=== PATIENT | female | born 1975 | race Caucasian/White ===

== ENCOUNTER 2024-01-07 09:09 | Inpatient (IN) ==
--- NOTE | 2023-12-15 12:50 | PAT Medication Instructions ---
Medication Instructions Date of Service December 15, 2023 Home Medications albuterol sulfate 90 mcg/actuation aerosol inhaler 1 puff inhalation QID PRN Shortness Of Breath buspirone 15 mg tablet 15 mg PO TID PRN Anxiety cholecalciferol (vitamin D3) 125 mcg (5,000 unit) tablet (Vitamin D3) 250 mcg PO QAM eletriptan 40 mg tablet 40 mg PO UD PRN migraines lisinopril 20 mg-hydrochlorothiazide 12.5 mg tablet 1 tab PO QAM omeprazole 20 mg capsule,delayed release 40 mg PO QAM oxycodone-acetaminophen 7.5 mg-325 mg tablet 1 tab PO TID paroxetine HCl 10 mg tablet 10 mg PO QAM hot flashes topiramate 50 mg tablet 50 mg PO BID MEDICATION INSTRUCTIONS: Continue as directed albuterol sulfate 90 mcg/actuation aerosol inhaler 1 puff inhalation QID PRN Shortness Of Breath (use if needed; BRING TO HOSPITAL) DO NOT take the morning of surgery lisinopril 20 mg-hydrochlorothiazide 12.5 mg tablet 1 tab PO QAM cholecalciferol (vitamin D3) 125 mcg (5,000 unit) tablet (Vitamin D3) 250 mcg PO QAM Take morning of surgery With a small sip of water, OTHERWISE NOTHING TO EAT OR DRINK AFTER MIDNIGHT: oxycodone-acetaminophen 7.5 mg-325 mg tablet 1 tab PO TID buspirone 15 mg tablet 15 mg PO TID PRN Anxiety topiramate 50 mg tablet 50 mg PO BID eletriptan 40 mg tablet 40 mg PO UD PRN migraines omeprazole 20 mg capsule,delayed release 40 mg PO QAM paroxetine HCl 10 mg tablet 10 mg PO QAM hot flashes Take evening before surgery oxycodone-acetaminophen 7.5 mg-325 mg tablet 1 tab PO TID buspirone 15 mg tablet 15 mg PO TID PRN Anxiety topiramate 50 mg tablet 50 mg PO BID eletriptan 40 mg tablet 40 mg PO UD PRN migraines Other Notes If you have any questions please call us at [phone] or [phone] or [phone] or [phone]
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
[2024-01-07] MEDS ORDERED: fentaNYL citrate PF 100 MCG/2 ML VIAL ONE (10:04)
[2024-01-07] MEDS ORDERED: MIDAZOLAM HCL 1 MG/ML 2ML VIAL ONE (10:04)
[2024-01-07] MEDS ORDERED: ATROPINE SULFATE 0.1 MG/ML 10ML SYR IV PRN (10:09)
[2024-01-07] MEDS ORDERED: PROMETHAZINE HCL 6.25 MG in SODIUM CHLORIDE 0.9% 50 ML IV PRN (10:09)
[2024-01-07] MEDS ORDERED: ONDANSETRON INJ 2 MG/ML 2 ML VIAL IV PRN ×2 (10:09→16:17)
[2024-01-07] MEDS: LR 15ML/HR IV SCH (10:15)
[2024-01-07] MEDS: LR 60ML/HR IV SCH (10:16)
[2024-01-07] MEDS: ACETAMINOPHEN 500 MG TAB PO SCH (10:16)
[2024-01-07] MEDS: GABAPENTIN 900 MG DOSE PO SCH (10:17)
[2024-01-07] MEDS: CeleBREX 200 MG CAP PO SCH (10:17)
--- NOTE | 2024-01-07 10:46 | History & Physical Bridge Note ---
Date of Service January 07, 2024 History & Physical Bridge Note I have examined the patient, reviewed the History & Physical and in the interval since the performance of the History & Physical I have noted the following changes of clinical significance: no changes noted
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
[2024-01-07] MEDS ORDERED: ROCURONIUM BROMIDE 10 MG/ML 5 ML VIAL IV ONE (11:24)
[2024-01-07] MEDS ORDERED: PROPOFOL IV EMULSION 10 MG/ML 20 ML VIAL IV ONE (11:24)
[2024-01-07] MEDS ORDERED: ONDANSETRON INJ 2 MG/ML 2 ML VIAL ONE (11:24)
[2024-01-07] MEDS ORDERED: diphenhydrAMINE 50 MG/ML VIAL ONE (11:24)
[2024-01-07] MEDS ORDERED: DEXAMETHASONE SOD INJ 4 MG/ML VIAL ONE (11:24)
[2024-01-07] MEDS ORDERED: GLYCOPYRROLATE 0.2 MG/ML VIAL ONE (11:24)
[2024-01-07] MEDS ORDERED: LIDOCAINE 2% 2 ML VIAL/AMP(20MG/ML) INFIL ONE (11:24)
[2024-01-07] MEDS: ceFAZolin 2000MG 2,000 MG/15 ML SYR IV SCH ×2 (11:28→20:28)
[2024-01-07] MEDS: BUPIVACAINE/EPINEPHRINE 0.25% 1:200,000 30 ML VIAL ONE (11:51)
[2024-01-07] MEDS: ceFAZolin 330 MG/ML 1 GM VIAL ONE (11:51)
[2024-01-07] MEDS ORDERED: PHENYLEPHRINE HCL 10 MG/ML VIAL ONE (12:06)
[2024-01-07] MEDS ORDERED: SUGAMMADEX SODIUM 200 MG/2 ML VIAL IV ONE (12:34)
[2024-01-07] MEDS ORDERED: ePHEDrine sulfate 50 MG/5 ML SYR ONE (12:58)
[2024-01-07] MEDS ORDERED: ePHEDrine sulfate 50 MG/ML AMP ONE (12:58)
[2024-01-07] MEDS: FLOSEAL HEMOSTATIC MATRIX 10ML TOP ONE (12:59)
--- NOTE | 2024-01-07 13:12 | Operative Report ---
Post Operative Report Pre & Post Diagnosis Operation Date: 01/07/24 10:55 Pre-Op Diagnosis: Neurogenic claudication due to lumbar spinal stenosis Lumbar spondylolisthesis L4-L5 Obesity Post-Op Diagnosis: Same I identified the patient and participated in the time-out.: Yes Procedure Operation Date: 01/07/24 10:55 Actual Procedures #1 removal of posterior instrumentation L5-S1. #2 exploration of fusion L5-S1. #3 lumbar decompression with bilateral medial facetectomies and foraminotomies L3-L4 L4-5. #4 posterior spinal fusion L4-5 and #5 placed posterior instrumentation L4-S1. #6 interbody fusion L4-L5. #7 placement of Spira 11 x 26 mm x 2 L for L5 pain #8 placement locally harvested morselized autograft infuse collagen sponge, with Koros in the posterior lateral gutters and Morpheus bone graft interbody space Surgeon Delfin Castillo DO Statistical Methods Teacher Tomas Ram Estimated Blood Loss 100 Findings See Below The patient is 5 foot 1 weighing over 77 kg with a BMI in excess of 31. Patient 's body did contribute to significant technical difficulty with positioning exposure and the procedure itself at least 50% increased operative time. Specimens None Indications This is a 48-year-old female presents problems diagnosis after failing since course of nonoperative care is here for surgical invention. Description of Procedure Patient was met with identified informed consent obtained. Patient was then taken to the operative suite underwent ablation placed in a prone position on the Bar table on top of the Que frame. All bony prominences well-padded eyes inspected to ensure no external pressure placed upon them. This point the lumbar spine was prepped and draped in normal sterile fashion. Sharp dissection with the assistance of Bovie cards from down to and exposing the lamina transverse processes of L4 and the instrumentation at L5-S1 bilaterally. In order to perform an instrumented fusion to stabilize her gross instability and spondylolisthesis at L4-5 it would require placement of new instrumentation at L4 and L5 subsequently requiring removal of the instrumentation at L5-S1. Hardware was subsequently removed at L5-S1 and the fusion mass explored noted to be mature and intact. Patient does have evidence of soft bone and I elected to place pedicle screws back into the S1 pedicles to provide extra points of fixation. I then performed a complete laminectomy of L4 including bilateral medial facetectomies and foraminotomies addressing severe spinal stenosis. Partial laminectomy of L3 was also performed including bilateral medial facetectomies addressing subarticular stenosis. Pedicle screws then placed in L4 and L5 bilaterally with assistance of fluoroscopy in the process ariel contoured and placed. By way of transforaminal approach on the right at discectomy of L4-5 was performed endplates guarded to subcortical bleeding bone and 11 x 26 mm spiral cage filled with Morpheus bone graft tapped in position. Then proceeded to the left transforaminal region and completed the discectomy at L4-L5 endplates guided to subcortical bleeding bone and a second 11 x 26 mm Spira cage filled with Morpheus bone graft tapped in position. The rods were then compressed locked in final position bilaterally. The transverse processes of L4-5 burred to subcortical bleeding bone. Infuse collagen sponge, with Koros and local autograft placed in the posterior gutters. 15 round JAYLENE drain inserted. The incision was then closed with 1 Vicryl to fascia 2-0 Vicryl subcutaneously and 4 Monocryl for final skin closure. Steri-Strips sterile dressing placed. Patient waken taken to PACU stable condition. Please note spinal cord monitoring was utilized at the procedure no changes noted. Marline Ram was present at the entire surgeon while the patient positioning complex portion of the surgery and final skin closure. I attest to the content of the Intraoperative Record and any orders documented therein. Any exceptions are noted below.
--- NOTE | 2024-01-07 13:21 | Fluoroscopy Report ---
FL lumbar spine 2-3V CLINICAL HISTORY: L4-L5 DECOMPRESSION TECHNIQUE: 2 views were obtained with the C-arm in the OR with the above procedure. Total fluoroscopy time was 14.2 seconds. Radiation dose was 13.34 mGy. Comparison: Comparison is made to lumbar spine radiograph 08/28/2013 FINDINGS/IMPRESSION: Intraoperative images were obtained of L4-L5 decompression. Please correlate with intraoperative fluoroscopy and operative report. ACT 112: Negative or not required by law. Electronically signed by: Tc Cobian M.D. 01/07/2024 1:20 PM
[2024-01-07] MEDS: HYDROmorphone INJ 1 MG/ML SYRINGE IV PRN ×2 (13:43→20:28)
--- OUTSIDE RECORDS SUMMARY | 2024-01-07 14:08 | External Medical Summary | Summary of Care ---
Author Name Unknown Organization [facility] Address [address] [place] [address] Phone [phone] Care Team Providers Care Meatcutter Name Role Phone Bob Kaplan DO, David Vincent Primary Care Provid er Reason for Visit * Reason Onset Date Comments Films 11/16/2023 Encounter Details Date Type Department Care Team ([facility] st Contact Info) Description 11/16/2023 Telephone Radiology Film File [address], [place] [id number] Edmundo Rojas Jr., DO [address] [place] [address] Films Allergies Active Allergy Reactions Criticality Noted Date Comments Oxaprozin Muscle pain,Tachycardia High 03/24/2017 Other reaction(s): Myalgia, Other See Comments Other reaction(s): Tachycardia documented as of this encounter (statuses as of 11/16/2023) Medications Medication Sig Dispensed Refills Start Date End Date Status Albuterol Sulfate HFA 108 (90 Base) MCG/ACT Inhalation Aerosol SolutionIndications: Bronchitis, complicated Inhale 2 Puffs by mouth in the morning and 2 Puffs at noon and 2 Puffs in the evening and 2 Puffs before bedtime. 18 g 1 05/25/2022 Active Topiramate 50 MG Oral Tablet (topAMAX)Indications :Status migrainosus TAKE ONE TABLET BY MOUTH IN THE MORNING AND AT BEDTIME 180 Tablet 1 10/21/2022 Active busPIRone HCl 15 MG Oral Tablet (Buspar)Indications: Outbursts of anger TAKE 1 TABLET BY MOUTH IN THE MORNING, AT NOON, AND BEFORE BEDTIME as needed for anxiety 90 Tablet 5 10/26/2022 Active Lisinopril-hydroCHLO ROthiazide 20-12.5 MG Oral TabletIndications:HT N, goal below 140/90 TAKE ONE PILL BY MOUTH ONCE A DAY 90 Tablet 3 11/27/2022 Active PARoxetine HCl 10 MG Oral Tablet (Paxil)Indications:S ymptomatic menopausal or female climacteric states Take 1 Tablet by mouth in the morning. 90 Tablet 3 07/30/2023 Active Omeprazole 20 MG Oral Capsule Delayed Release (PriLOSEC) TAKE TWO CAPSULES BY MOUTH ONCE DAILY 180 Capsule 3 10/29/2023 Active oxyCODONE-Acetaminop hen 7.5-325 MG Oral TabletIndications:ME DICATION USE AGREEMENT,Failed back surgical syndrome,DDD (degenerative disc disease), lumbar,DDD (degenerative disc disease), cervical Take 1 Tablet by mouth every 8 hours as needed for Pain, Severe. No driving on this medication. Ongoing. 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 There is anterior and posterior spondylitic ridging at this level. There is stable loss of disc height with anterior and posterior spondylitic ridging at C6-7. 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/15/2011 documented as of this encounter (statuses as of 11/16/2023) Resolved Problems Problem Noted Date Diagnosed Date Resolved Date Sepsis 11/30/2014 12/01/2016 Pyelonephritis 11/30/2014 12/01/2016 Outbursts of anger 07/06/2014 Pelvic pain in female 12/05/20132016 Tobacco use disorder 09/15/2011 016 documented as of this encounter (statuses as of 11/16/2023) Immunizations Name Administration Dates Next Due Covid-19 Ad26, Single Dose (Papi/J&J) 021 Pneumococcal Polysaccharide PPV23 (Pneumovax) TDAP (age 10 and older)(Boostrix) 07/20/2014 documented as of this encounter Social History Tobacco Use Types Packs/Day Years Used Date Smoking Tobacco: Former Cigarettes 0.5 22 0 02/16/1999 - 02/16/2021 Smokeless Tobacco: Never Comments:pt smoke a couple a week Alcohol Use Standard Drinks/Week Comments Yes 0.8 (1 standard drink = 0.6 oz p ure alcohol) socially PHQ-2 Answer Date Recorded PHQ Adult Total Score 1 02/10/2023 Hunger Vital Sign Answer Date Recorded Within the past 12 months, y ou worried that your food would run out before you got the money to buy more. Never true 02/11/20 23 Within the past 12 months, t he food you bought just didn't last and you didn't have money to get more. Never true 02/10/2023 Sex and Gender Information Value Date Recorded Sex Assigned at Female 10/26/2018 9:12 AM EDT Gender Identity Female 10/26/2018 9:12 AM EDT Sexual Orientation Straight 10/26/2018 9: 12 AM EDT Job Start Date Occupation Industry Not on file Not on file Not on file documented as of this encounter Functional Status Functional Status Response Date of Assess ment Are you deaf or do you have serious difficulty h earing? No 11/29/2014 Are you blind or do you have serious difficulty seeing, even when wearing glasses? No 11/29/2014 Do you have serious difficul ty walking or climbing stairs? (5 years old or older) No 11/29/2014 Do you have difficulty dress ing or bathing? (5 years old or older) No 11/29/2014 Because of a physical, menta l, or emotional condition, do you have difficulty doing errands alone such as visiting a doctor s office or shopping? (15 years old or older) No 11/30/19 15 Cognitive Status Response Date of Assessm ent Because of a physical, menta l, or emotional condition, do you have serious difficulty concentrating, remembering, or making decisions? (5 years old or older) No 11/29/2014 documented as of this encounter Miscellaneous Notes * Telephone Encounter - Filomena Gardner OSA - 11/16/2023 10:[address] [facility] requesting 10-29-23 images be pushed to their system. [place] Authorization to Release on file. Images pushed to [facility] external connection through PACs Report(s) faxed to [phone]. Successful fax confirmation received. documented in this encounter Plan of Treatment Upcoming Encounters Date Type Department Care Team (Late st Contact Info) Description 01/13/2024 8:40 AM EDT Office Visit [facility] [place] [address] Misa Olson MD [address] [facility] [address] 03/10/2024 2:00 PM EDT Office Visit [facility] [address] [place] [address] Edmundo Rojas Jr., DO [address] [place] [phone] Health Maintenance Due Date Last Done Comments Hepatitis C Screening 10/19/1993 Hepatitis B (1 of 3 - 19+ 3-dose series) 10/19/1994 HPV/Co-Test 10/19/2005 Colonoscopy 10/19/2020 Fecal Occult Blood Test 10/19/2020 Sigmoidoscopy 10/19/2020 COVID-19 Vaccine (2 - 2022- season) 2023 05/17/2021 Depression Screening 02/11/2024 02/10/2023 Influenza Vaccine (FLU shot) (Season Ended) 2024 Cervical Cancer Screening 06/13/2024 Pap Smear 06/13/2024 06/13/2021, 01/17, 01/15/2012 GFR 06/25/2024 06/25/2023, 09/18, 12/05/2021, Additional history exists DTaP,Tdap,and Td Vaccines (2 - Td or Tdap) 07/20/2024 07/20/2014 Mammogram 11/09/2024 11/10/2023, 11/0 09/2022, 11/13/2022, Additional history exists Cologuard 01/09/2025 01/09/2022, 12/17, 01/04/2022 Colorectal Cancer Screening 01/09/2025 Albumin/Creatinine Ratio 10/16/2025 10/16/2022 Diabetes Screening 06/25/2026 06/25/2023, 0 10/16/2022, 01/08/2022, Additional history exists Lipid Panel 06/25/2028 06/25/2023, 06/22/2018 Pneumococcal Vaccine: Pediatrics (0 to 5 Years) and At-Risk Patients (6 to 64 Years) Aged Out 05/25/2017 No longer eligible based on patient's age to complete this topic GARDASIL-HPV IMMUNIZATION SERIES Aged Out No longer eligible based on patient's age to complete this topic MENINGOCOCCAL (MENACTRA/MENVEO) Aged Out No longer eligible based on patient's age to complete this topic documented as of this encounter Medical Devices Not on filedocumented as of this encounter Advance Directives Latest Code Status on File Code Status Date Activated Date Inactivated Comments Full Code 01/08/2022 9:03 AM 01/08/2022 7:23 PM This order reflects the patients wishes and were consensually agreed upon. Code Status History Code Status Date Activated Date Inactivated Comments Full Code 06/02/2016 3:56 PM 06/03/2016 3:20 PM Thi s order reflects the patients wishes and were consensually agreed upon. Full Code 11/29/2014 5:14 PM 11/30/2014 6:35 PM This order reflects the patients wishes and were consensually agreed upon. Question Answer Comments Discussion of Advance Directives occurred with: Patient Does the patient have a Living Will? No Does the patient have Health Care Power of Payroll Accounting Clerk? No Care Teams Meatcutter Relationship Specialty Start Date End Date Edmundo Rojas Jr., DO [address] [place] [address] [place] [address] PCP - General Family Medicine 09/15/11 documented as of this encounter
--- OUTSIDE RECORDS SUMMARY | 2024-01-07 14:08 | External Medical Summary | Summary of Care ---
Author Name Unknown Organization [facility] Address [address] [place] [address] Phone [phone] Care Team Providers Care Third Mate Name Role Phone Bob Kaplan DO, David Vincent Primary Care Provid er Encounter Details Date Type Department Care Team (Late st Contact Info) Description 12/10/2023 Orders Only PATIENT PORTAL DO NOT DELETE THIS DEPT USED BY [place] [id number] Allergies Active Allergy Reactions Criticality Noted Date Comments Oxaprozin Muscle pain,Tachycardia High 03/24/2017 Other reaction(s): Myalgia, Other See Comments Other reaction(s): Tachycardia documented as of this encounter (statuses as of 12/10/2023) Medications Medication Sig Dispensed Refills Start Date [...] ONCE DAILY 180 Capsule 3 10/29/2023 Active Eletriptan Hydrobromide 40 MG Oral Tablet (Relpax)Indications: Status migrainosus 1 at onset of migraine may repeat in 2 hours max 2 doses in 24 hours 10 Tablet 5 11/13/2023 Active oxyCODONE-Acetaminop hen 7.5-325 MG Oral TabletIndications:ME DICATION USE AGREEMENT,Failed back surgical syndrome,DDD (degenerative disc disease), lumbar,DDD (degenerative disc disease), cervical Take 1 Tablet by mouth every 8 hours as needed for Pain, Severe. No driving on this medication. Ongoing. 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 MEDICATION USE AGREEMENT 03/12/2015 Overview: Updated 08/23/18 Edmundo Rojas Jr, DO Satnam [place] DDD (degenerative disc disease), cervical 2014 Overview: [...] as of this encounter (statuses as of 12/10/2023) Resolved Problems Problem Noted Date Diagnosed Date Resolved Date Sepsis 11/30/2014 12/01/2016 Pyelonephritis 11/30/2014 12/01/2016 Outbursts of anger 07/06/2014 Pelvic pain in female 12/05/20132016 Tobacco use disorder 09/15/2011 016 documented as of this encounter (statuses as of 12/10/2023) Immunizations Name Administration Dates Next Due Covid-19 [...] No 11/29/2014 documented as of this encounter Plan of Treatment Upcoming Encounters Date Type Department Care Team (Late st Contact Info) Description 01/13/2024 8:40 AM EDT Office Visit [facility] [address] [place] [address] [facility]isa Olson [facility] [address] [facility] [phone] 03/10/2024 2:00 PM EDT [place] [facility] [address] [place] [phone] Edmundo Rojas Jr., DO [address] [place] [address] Health Maintenance Due Date Last Done Comments Hepatitis C Screening 10/19/1993 Hepatitis B (1 of 3 - 19+ 3-dose series) 10/19/1994 HPV/Co-Test 10/19/2005 Colonoscopy 10/19/2020 Fecal Occult Blood Test 10/19/2020 Sigmoidoscopy 10/19/2020 COVID-19 Vaccine ( season) 2023 05/17/2021 Depression Screening 02/11/2024 02/10/2023 Influenza Vaccine (FLU shot) (Season Ended) 2024 Cervical Cancer Screening 06/13/2024 Pap Smear 06/13/2024 06/13/2021, 07/03/2016, 01/15/2012 GFR 06/25/2024 06/25/2023, 09/18, 12/05/2021, Additional [...] filedocumented as of this encounter Advance Directives * Full Code (Latest Code Status on File) Date Activated Date Inactivated Comments 01/08/2022 9:03 AM 01/08/2022 7:23 PM This order r eflects the patients wishes and were consensually agreed upon. * Full Code Date Activated Date Inactivated Comments 06/02/2016 3:56 PM 06/03/2016 3:20 PM This order reflects the patients wishes and were consensually agreed upon. * Full Code Date Activated Date Inactivated Comments 11/29/2014 5:14 PM 11/30/2014 6:35 PM This order r eflects the patients wishes and were consensually agreed upon. Question Answer Comments Discussion of Advance Directives occurred with: Patient Does the patient have a Living Will? No Does the patient have Health Care Power of Attor patricia? No Care Teams Third Mate Relationship Specialty Start Date End Date Edmundo Rojas Jr., DO [address] [facility] [place] [address] PCP - General Family Medicine 09/15/11 documented as of this encounter
--- OUTSIDE RECORDS SUMMARY | 2024-01-07 14:08 | External Medical Summary | Summary of Care ---
Author Name Unknown Organization [facility] Address [address] [place] [address] Phone [phone] Care Team Providers Care Cognos Developer Name Role Phone Bob Kaplan DO, David Vincent Primary Care Provid er Reason for Visit * Reason Onset Date Comments Films 12/03/2023 Encounter Details Date Type Department Care Team ([facility] st Contact Info) Description 12/03/2023 Telephone Radiology Film File [address], [place] [phone] Tomas Ram PA-C [address] [place] [address] Films Allergies Active Allergy Reactions Criticality Noted Date Comments Oxaprozin Muscle pain,Tachycardia High 03/24/2017 Other reaction(s): Myalgia, Other See Comments Other reaction(s): Tachycardia documented as of this encounter (statuses as of 12/03/2023) Medications Medication Sig Dispensed Refills Start Date [...] on this medication. Ongoing. 90 Tablet 0 11/27/2023 Active documented as of this encounter (statuses as of 12/03/2023) Active Problems Problem Noted Date Diagnosed Date [...] as of this encounter (statuses as of 12/03/2023) Resolved Problems Problem Noted Date Diagnosed Date Resolved Date Sepsis 11/30/2014 12/01/2016 Pyelonephritis 11/30/2014 12/01/2016 Outbursts of anger 07/06/2014 Pelvic pain in female 12/05/20132016 Tobacco use disorder 09/15/2011 016 documented as of this encounter (statuses as of 12/03/2023) Immunizations Name Administration Dates Next Due Covid-19 [...] Telephone Encounter - Filomena Gardner OSA - 12/03/2023 3:32 PM EDT [facility] requesting 11-29-23 images be pushed to their system. [place] Authorization to Release on file. Images pushed to [facility] external connection through PACs Report(s) faxed to [phone]. Successful fax confirmation received. documented in this encounter Plan of Treatment Upcoming Encounters Date Type Department Care Team (Late st Contact Info) Description 01/13/2024 8:40 AM EDT Office Visit [facility] [place] [address] Misa Olson MD [address] [facility] [address] 03/10/2024 2:00 PM EDT Office Visit [facility] [address] [place] [address] Edmundo Rojas Jr., DO [address] [place] [address] Health Maintenance Due Date Last Done Comments Hepatitis C Screening 10/19/1993 Hepatitis B (1 of 3 - 19+ 3-dose series) 10/19/1994 HPV/Co-Test 10/19/2005 Colonoscopy 10/19/2020 Fecal Occult Blood Test 10/19/2020 Sigmoidoscopy 10/19/2020 COVID-19 Vaccine (2 - season) 2023 05/17/2021 Depression Screening 02/11/2024 02/10/2023 [...] the patient have Health Care Power of Cleaner Housekeeping? No Care Teams Cognos Developer Relationship Specialty Start Date End Date Edmundo Rojas Jr., DO [address] [place] [address] [place] [address] PCP - General Family Medicine 09/15/11 documented as of this encounter
--- OUTSIDE RECORDS SUMMARY | 2024-01-07 14:08 | External Medical Summary | Summary of Care ---
Author Name Unknown Organization [facility] Address [address] [place] [address] Phone [phone] Care Team Providers Care Charity Fundraiser Name Role Phone Bob Kaplan DO, David Vincent Primary Care Provid er Reason for Referral * Medication Prior Authorization - Pending Review Specialty Diagnoses / Procedures Referred By Merrick t Referred To Contact Diagnoses MEDICATION USE AGREEMENT Failed back surgical syndrome DDD (degenerative disc disease), lumbar DDD (degenerative disc disease), cervical Олег Fraire PA-C [address] [place] [address] Referral ID Status Reason Start Date Expiration Date V isits Requested Visits Authorized [id number] Pending Review [id number] Reason for Visit * Reason Onset Date Comments Medication Refill 12/24/2023 Encounter Details Date Type Department Care Team (Late st Contact Info) Description 12/24/2023 Refill [facility] [address] [place] [phone] Edmundo Rojas Jr., DO [address] [place] [address] MEDICATION USE AGREEMENT; Failed back surgical syndrome; DDD (degenerative disc disease), lumbar; DDD (degenerative disc disease), cervical Allergies Active Allergy Reactions Criticality Noted Date Comments Oxaprozin Muscle pain,Tachycardia High 03/24/2017 Other reaction(s): Myalgia, Other See Comments Other reaction(s): Tachycardia documented as of this encounter (statuses as of 12/27/2023) Medications Medication Sig Dispensed Refills Start Date End Date Status Albuterol Sulfate HFA 108 (90 Base) MCG/ACT Inhalation Aerosol SolutionIndication s:Bronchitis, complicated Inhale 2 Puffs by mouth in the morning and 2 Puffs at noon and 2 Puffs in the evening and 2 Puffs before bedtime. 18 g 1 05/25/2022 Active Topiramate 50 MG Oral Tablet (topAMAX)Indicatio ns:Status migrainosus TAKE ONE TABLET BY MOUTH IN THE MORNING AND AT BEDTIME 180 Tablet 1 10/21/2022 Active busPIRone HCl 15 MG Oral Tablet (Buspar)Indication s:Outbursts of anger TAKE 1 TABLET BY MOUTH IN THE MORNING, AT NOON, AND BEFORE BEDTIME as needed for anxiety 90 Tablet 5 10/26/2022 Active Lisinopril-hydroCH LOROthiazide 20-12.5 MG Oral TabletIndications: HTN, goal below 140/90 TAKE ONE PILL BY MOUTH ONCE A DAY 90 Tablet 3 11/27/2022 Active PARoxetine HCl 10 MG Oral Tablet (Paxil)Indications :Symptomatic menopausal or female climacteric states Take 1 Tablet by mouth in the morning. 90 Tablet 07/30/2023 Active Omeprazole 20 MG Oral Capsule Delayed Release (PriLOSEC) TAKE TWO CAPSULES BY MOUTH ONCE DAILY 180 Capsule 10/29/2023 Active Eletriptan Hydrobromide 40 MG Oral Tablet (Relpax)Indication s:Status migrainosus 1 at onset of migraine may repeat in 2 hours max 2 doses in 24 hours 10 Tablet 5 11/13/2023 Active Veozah 45 MG Oral Tablet (Fezolinetant)Rupali cations:Symptomati c menopausal or female climacteric states Take 1 Tablet by mouth in the morning. 30 Tablet 3 12/21/2023 Active oxyCODONE-Acetamin ophen 7.5-325 MG Oral TabletIndications: MEDICATION USE AGREEMENT,Failed back surgical syndrome,DDD (degenerative disc disease), lumbar,DDD (degenerative disc disease), cervical Take 1 Tablet by mouth every 8 hours as needed for Pain, Severe. No driving on this medication. Ongoing. 90 Tablet 12/27/2023 Active oxyCODONE-Acetamin ophen 7.5-325 MG Oral TabletIndications: MEDICATION USE AGREEMENT,Failed back surgical syndrome,DDD (degenerative disc disease), lumbar,DDD (degenerative disc disease), cervical Take 1 Tablet by mouth every 8 hours as needed for Pain, Severe. No driving on this medication. Ongoing. 90 Tablet 11/27/2023 4 Discontinue d(Refill) documented as of this encounter (statuses as of 12/27/2023) Active Problems Problem Noted Date Diagnosed Date [...] as of this encounter (statuses as of 12/27/2023) Resolved Problems Problem Noted Date Diagnosed Date Resolved Date Sepsis 11/30/2014 12/01/2016 Pyelonephritis 11/30/2014 12/01/2016 Outbursts of anger 07/06/2014 1 Pelvic pain in female 12/05/20132016 Tobacco use disorder 09/15/2011 016 documented as of this encounter (statuses as of 12/27/2023) Immunizations Name Administration Dates Next Due Covid-19 [...] encounter Miscellaneous Notes * Telephone Encounter - Magda Burton PHARM Tech - 12/27/2023 10:19 AM EDT Patient calling in to check stats of medication advised this was sent to pharmacy Thank you, Magda Burton Fresh [employer] Clerk I [facility] ([facility]) 12/27/2023,10:19 AM * Telephone Encounter - Олег Fraire PA-C - 12/27/2023 10:06 AM EDT Signed Prescriptions: Disp Refills oxyCODONE-Acetaminophen 7.5-325 MG Oral Ta*90 Tab*0 Sig: Take 1 Tablet by mouth every 8 hours as needed for Pain, Severe. No driving on this medication. Ongoing. Authorizing Provider: ОЛЕГ FRAIRE * Telephone Encounter - Carmen Chadwick [facility] - 12/25/2023 8:10 AM EDTPending Prescriptions: Disp Refills oxyCODONE-Acetaminophen 7.5-325 MG Oral Ta*90 Tab*0 Sig: Take 1 Tablet by mouth every 8 hours as needed for Pain, Severe. No driving on this medication. Ongoing. * Telephone Encounter - Carmen Chadwick [facility] - 12/25/2023 8:09 AM EDT I have reviewed the patients controlled substance dispensing history in the Prescription Drug Monitoring Program in compliance with the [facility] regulations before prescribing a controlled substance. PDMP checked on 12/25/2023. Pending Prescriptions: Disp Refills oxyCODONE-Acetaminophen 7.5-325 MG Oral T*90 Tab*0 Sig: Take 1 Tablet by mouth every 8 hours as needed for Pain, Severe. No driving on this medication. Ongoing. Last Visit: 12/22/2023 (in office), Visit date not found (telemedicine) Next Visit: 03/10/2024 Date medication was last filled: 11/27 Date medication is due for refill: 12/26 Pharmacy: [id number] Is this request for a controlled substance? Yes and Urine Drug Screen Not completed Toxicology results: Results for orders placed or performed in visit on 10/16/22 TOX SCREEN, URINE, W/ CONFIRMATION Result Value Amphetamines Screen, U Negative Benzodiazepines Screen, U Negative Cannabinoids Screen, U Negative Cocaine Metabolite Screen, U Negative Fentanyl Screen, U Negative Hydrocodone Screen, U Negative Methadone Metabolite Screen, U Negative Morphine/Codeine Screen, U Negative Oxycodone Screen, U Positive (A) Narrative Cutoff Concentrations: Drug Level Amphetamines 500 ng/mL Benzodiazepines 100 ng/mL Cannabinoids 50 ng/mL Cocaine Metabolite 150 ng/mL Fentanyl 1 ng/mL Hydrocodone / Hydromorphone 300 ng/mL Methadone Metabolite 100 ng/mL Morphine / Codeine 300 ng/mL Oxycodone / Oxymorphone 100 ng/mL Screening results are presumptive and can only be used for medical purposes. Positive screening results are reflexed to confirmatory testing. Results for orders placed or performed in visit on 11/13/21 PAIN MANAGEMENT DRUG PANEL, URINE W/ INTERPRETATION Result Value Compliance Interpretation Based on the medication information provided: The positive oxycodone screening result is CONSISTENT with oxycodone use. Confirmatory testing is available upon request. Amphetamines Screen, U Negative Benzodiazepines Screen, U Negative Cannabinoids Screen, U Negative Cocaine Metabolite Screen, U Negative Fentanyl Screen, U Negative Hydrocodone Screen, U Negative Methadone Metabolite Screen, U Negative Morphine/Codeine Screen, U Negative Oxycodone Screen, U Positive (A) Valid Interpretation Normal Creatinine, U 522 Narrative Cutoff Concentrations: Drug Level Amphetamines 500 ng/mL Benzodiazepines 100 ng/mL Cannabinoids 50 ng/mL Cocaine Metabolite 150 ng/mL Fentanyl 1 ng/mL Hydrocodone / Hydromorphone 300 ng/mL Methadone Metabolite 100 ng/mL Morphine / Codeine 300 ng/mL Oxycodone / Oxymorphone 100 ng/mL Screening results are presumptive and can only be used for medical purposes. Confirmatory testing is available upon request. Results for orders placed or performed in visit on 01/05/18 OPIOIDS/BENZO COMPLIANCE MONITORING TEST Result Value URINE DRUG SCREEN RESULT Amphetamine NEGATIVE Barbiturates NEGATIVE Benzodiazepines NEGATIVE Cannabinoids NEGATIVE Cocaine Metabolite NEGATIVE METHADONE METABOLITE NEGATIVE Morphine / Codeine NEGATIVE OXYCODONE POSITIVE (A) COMMENT THE ABOVE SCREENING RESULTS ARE PRESUMPTIVE AND CAN ONLY BE USED FOR MEDICAL PURPOSES. CONFIRMATORY TESTING IS AVAILABLE UPON REQUEST. Cutoff Concentration URINE VALID INTERP NORMAL CREATININE TEJAL 97 NITRITE TEJAL 5 pH TEJAL 5.5 Results for orders placed or performed during the hospital encounter of 11/29/14 TOX URINE DRUG SCREEN ([facility] ONLY) Result Value AMPHETAMINES NEGATIVE BARBITURATES NEGATIVE BENZODIAZEPINES NEGATIVE CANNABINOIDS NEGATIVE COCAINE METABOLITE NEGATIVE MORPHINE/ CODEINE NEGATIVE METHADONE MEDICAL NEGATIVE OXYCODONE NEGATIVE TEJAL COMMENT THE ABOVE SCREENING RESULTS ARE PRESUMPTIVE AND CAN ONLY BE USED FOR MEDICAL PURPOSES. CONFIRMATORY TESTING IS AVAILABLE UPON REQUEST. CUTOFF CONCENTRATION Please approve if appropriate. Thank you, Carmen Chadwick, PharmD Clinical Pharmacist [facility] ([facility]) 12/25/23 8:09 AM [phone] documented in this encounter Plan of Treatment Upcoming Encounters Date Type Department Care Team (Late st Contact Info) Description 01/13/2024 8:40 AM EDT Office Visit Neurology, [address] [address] [place] [address] [address] Misa Olson MD [address] [facility] [place] [address] 03/10/2024 2:00 PM EDT Office Visit [facility] [address] [place] [address] Bob Kaplan, Edmundo Chin DO [address] [place] [address] 04/28/2024 9:30 AM EDT Office Visit Gynecology/Obstetrics, [place] [address] [place] [address] Lindsey Burnett, [place] [address] [place] [phone] Health Maintenance Due Date Last Done Comments Hepatitis C Screening 10/19/1993 Hepatitis B (1 of 3 - 19+ 3-dose series) 10/19/1994 HPV/Co-Test 10/19/2005 Colonoscopy 10/19/2020 Fecal Occult Blood Test 10/19/2020 Sigmoidoscopy 10/19/2020 COVID-19 Vaccine ( - season) 2023 05/17/2021 Depression Screening 02/11/2024 02/10/2023 Influenza Vaccine (FLU shot) (Season Ended) 2024 Cervical Cancer Screening 06/13/2024 Pap Smear 06/13/2024 06/13/2021, 01/17, 01/15/2012 DTaP,Tdap,and Td Vaccines (2 - Td or Tdap) 07/20/2024 07/20/2014 Mammogram 11/09/2024 11/10/2023, 1109/2022, 11/13/2022, Additional history exists GFR 12/16/2024 12/17/2023, 02/2023, 10/16/2022, Additional history exists Cologuard 01/09/2025 01/09/2022, 12/17, 01/04/2022 Colorectal Cancer Screening 01/09/2025 Albumin/Creatinine Ratio 10/16/2025 10/16/2022 Diabetes Screening 12/16/2026 12/17/2023, 1 08/26/2022, 10/16/2022, Additional history exists Lipid Panel 06/25/2028 06/25/2023, [...] Not on filedocumented as of this encounter Visit Diagnoses Diagnosis MEDICATION USE AGREEMENT Failed back surgical syndrome Other unspecified back disorder DDD (degenerative disc disease), lumbar Degeneration of lumbar or lumbosacral intervertebral disc DDD (degenerative disc disease), cervical Degeneration of cervical intervertebral disc documented in this encounter Advance Directives * Full Code [...] Power of Attor patricia? No Care Teams Charity Fundraiser Relationship Specialty Start Date End Date Edmundo Rojas Jr., DO [address] [place] [address] [place] [address] PCP - General Family Medicine 09/15/11 documented as of this encounter
--- OUTSIDE RECORDS SUMMARY | 2024-01-07 14:08 | External Medical Summary | Summary of Care ---
Author Name Unknown Organization [facility] Address [address] [place] [address] Phone [phone] Care Team Providers Care Medical Transcriber Name Role Phone Bob Kaplan DO, David Vincent Primary Care Provid er Reason for Visit * Reason Onset Date Comments Medication Refill 11/26/2023 Encounter Details Date Type Department Care Team (Late st Contact Info) Description 11/26/2023 Refill [facility] [address] [place] [address] Betzaida Rojas Jr., DO [address] [place] [phone] MEDICATION USE AGREEMENT; Failed back surgical syndrome; DDD (degenerative disc disease), lumbar; DDD (degenerative disc disease), cervical Allergies Active Allergy Reactions Criticality Noted Date Comments Oxaprozin Muscle pain,Tachycardia High 03/24/2017 Other reaction(s): Myalgia, Other See Comments Other reaction(s): Tachycardia documented as of this encounter (statuses as of 11/27/2023) Medications Medication Sig Dispensed Refills Start Date [...] 24 hours 10 Tablet 5 11/13/2023 Active oxyCODONE-Acetamin ophen 7.5-325 MG Oral TabletIndications: MEDICATION USE AGREEMENT,Failed back surgical syndrome,DDD (degenerative disc disease), lumbar,DDD (degenerative disc disease), cervical Take 1 Tablet by mouth every 8 hours as needed for Pain, Severe. No driving on this medication. Ongoing. 90 Tablet 0 11/27/2023 Active oxyCODONE-Acetamin ophen 7.5-325 MG Oral TabletIndications: MEDICATION USE AGREEMENT,Failed back surgical syndrome,DDD (degenerative disc disease), lumbar,DDD (degenerative disc disease), cervical Take 1 Tablet by mouth every 8 hours as needed for Pain, Severe. No driving on this medication. Ongoing. 90 Tablet 0 11/01/2023 Discontinue d(Refill) documented as of this encounter (statuses as of 11/27/2023) Active Problems Problem Noted Date Diagnosed Date Vitamin D deficiency 10/19/2022 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 MEDICATION USE AGREEMENT 03/12/2015 Overview: Updated 08/23/18 Betzaida DO Satnam Myers Jr DDD (degenerative disc disease), cervical 2014 Overview: [...] as of this encounter (statuses as of 11/27/2023) Resolved Problems Problem Noted Date Diagnosed Date Resolved Date Sepsis 11/30/2014 12/01/2016 Pyelonephritis 11/30/2014 12/01/2016 Outbursts of anger 07/06/2014 Pelvic pain in female 12/05/20132016 Tobacco use disorder 09/15/2011 016 documented as of this encounter (statuses as of 11/27/2023) Immunizations Name Administration Dates Next Due Covid-19 [...] encounter Miscellaneous Notes * Telephone Encounter - Betzaida Rojas Jr., DO - 11/27/2023 12:56 PM EDT Signed Prescriptions: Disp Refills oxyCODONE-Acetaminophen 7.5-325 MG Oral Ta*90 Tab*0 Sig: Take 1 Tablet by mouth every 8 hours as needed for Pain, Severe. No driving on this medication. Ongoing.Authorizing Provider: BETZAIDA ROJAS JR -------- * Telephone Encounter - Bob SmallLynn, Betzaida Chin, DO - 11/27/2023 12:54 PM EDT I have reviewed the patients controlled substance dispensing history in the Prescription Drug Monitoring Program in compliance with the [facility] regulations before prescribing a controlled substance. Last Tox Screen Results: Results for orders placed or performed in [...] TESTING IS AVAILABLE UPON REQUEST. CUTOFF CONCENTRATION * Telephone Encounter - Jamal Oscar [facility] - 11/27/2023 11:52 AM EDTPending Prescriptions: Disp Refills oxyCODONE-Acetaminophen 7.5-325 MG Oral Ta*90 Tab*0 Sig: Take 1 Tablet by mouth every 8 hours as needed for Pain, Severe. No driving on this medication. Ongoing. * Telephone Encounter - Jamal Oscar [facility] - 11/27/2023 11:49 AM EDT I have reviewed the patients controlled substance dispensing history in the Prescription Drug Monitoring Program in compliance with the [facility] regulations before prescribing a controlled substance. PDMP checked on 11/27/2023. Pending Prescriptions: Disp Refills oxyCODONE-Acetaminophen 7.5-325 MG Oral T*90 Tab*0 Sig: Take 1 Tablet by mouth every 8 hours as needed for Pain, Severe. No driving on this medication. Ongoing. Last Visit: 10/29/2023 (in office), Visit date not found (telemedicine) Next Visit: 03/10/2024 Date medication was last filled: 11/01/23 Date medication is due for refill: 11/30/23 Pharmacy: [id number] Is this [...] REQUEST. CUTOFF CONCENTRATION Please approve if appropriate. ThanksJamal Rph, Pharm D. Clinical Pharmacist Centralized Clinical Pharmacy Services (Formerly Telepharmacy)/[facility] [phone] 11/27/2023,11:49 AM documented in this encounter Plan of Treatment Upcoming Encounters Date Type Department Care Team (Late st Contact Info) Description 11/29/2023 11:00 AM EDT Appointment Radiology, [facility] [address] [place] [address] 01/13/2024 8:40 AM EDT [facility] [address] [facility] [place] [address] Misa Olson MD [address] [place] [address] 03/10/2024 2:00 PM EDT Office Visit [facility] [address] [place] [address] Betzaida Rojas Jr., DO [address] [place] [address] Health Maintenance Due Date [...] or Tdap) 07/20/2024 07/20/2014 Mammogram 11/09/2024 11/10/2023, 11/09/2022, 11/13/2022, Additional history exists Cologuard 01/09/2025 01/09/2022, [...] disc documented in this encounter Advance Directives Latest Code Status [...] the patient have Health Care Power of Brinell Tester? No Care Teams Medical Transcriber Relationship Specialty Start Date End Date Betzaida Rojas Jr., DO [address] [facility] Services [place], [place] [phone] PCP - General Family Medicine 09/15/11 documented as of this encounter
--- OUTSIDE RECORDS SUMMARY | 2024-01-07 14:08 | External Medical Summary | Summary of Care ---
Author Name Unknown Organization [facility] Address [address] [place] [address] Phone [phone] Care Team Providers Care Commissioned Police Officer Name Role Phone Bob Kaplan DO, David Vincent Primary Care Provid er Reason for Referral * Precert (Within 10 days (routine)) - Authorized Specialty Diagnoses / Procedures Referred By Merrick robbins Referred To Contact Radiology Diagnoses Spondylolisthesis at L4-L5 level Procedures MRI L SPINE WO CONTRAST Tomas Ram PA-C [address] [place] [address] Referral ID Status Reason Start Date Expiration Date V isits Requested Visits Authorized [id number] Authorized 11/26/2023 01/24/2024 [id number] Encounter Details Date Type Department Care Team (Late st Contact Info) Description 11/26/2023 Orders Only Radiology, [address] [address] Requisition, External Radiology [address] [place], [place] [phone] Spondylolisthesis at L4-L5 level* Allergies Active Allergy Reactions Criticality Noted Date Comments Oxaprozin Muscle pain,Tachycardia High 03/24/2017 Other reaction(s): Myalgia, Other See Comments Other reaction(s): Tachycardia documented as of this encounter (statuses as of 11/26/2023) Medications Medication Sig Dispensed Refills Start Date [...] as of this encounter (statuses as of 11/26/2023) Active Problems Problem Noted Date Diagnosed Date Vitamin D deficiency 10/19/2022 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 MEDICATION USE AGREEMENT 03/12/2015 Overview: Updated 2/5/19 Edmundo Rojas Jr, DO [place] DDD (degenerative disc disease), cervical 2014 Overview: [...] as of this encounter (statuses as of 11/26/2023) Resolved Problems Problem Noted Date Diagnosed Date Resolved Date Sepsis 11/30/2014 12/01/2016 Pyelonephritis 11/30/2014 12/01/2016 Outbursts of anger 07/06/2014 Pelvic pain in female 12/05/20132016 Tobacco use disorder 09/15/2011 016 documented as of this encounter (statuses as of 11/26/2023) Immunizations Name Administration Dates Next Due Covid-19 [...] Description 11/29/2023 11:00 AM EDT Appointment Radiology, [facility] [address] [place] [address] 01/13/2024 8:40 AM [place] [address] Misa Olson MD [address] [facility] [place] [address] 03/10/2024 2:00 PM EDT Office Visit [facility] [address] [place] [phone] Bob Kaplan, Edmundo Chin, DO [address] [place] [address] Scheduled Orders Name Type Priority Associated Diagnoses Orde r Schedule MRI L SPINE WO CONTRAST Medical Imaging Routine Spondylolisthesis at L4-L5 level Expected: 11/29/2023, Expires: 01/24/2024 Health Maintenance Due Date Last Done Comments [...] 11/09/2024 11/10/2023, 1109/2022, 11/13/2022, Additional history exists Cologuard 01/09/2025 01/09/2022, [...] as of this encounter Visit Diagnoses Diagnosis Spondylolisthesis at L4-L5 level- Primary documented in this encounter Advance Directives Latest [...] the patient have Health Care Power of Recreational Vehicle Repairer? No Care Teams Commissioned Police Officer Relationship Specialty Start Date End Date Edmundo Rojas Jr., DO [address] [place] [address] Services [place] [address] PCP - General Family Medicine 09/15/11 documented as of this encounter
--- OUTSIDE RECORDS SUMMARY | 2024-01-07 14:08 | External Medical Summary ---
Author Name Unknown Address Unknown Organization K01:[facility] - [address] [facility] [address] Laboratory Report Ordering Provider Test Date Status STACEY FERNANDEZ 12/17/2023 13:04:24 Final Observation Date Value Abnormality Reference (Units ) Status BUN 12/17/2023 13:04:24 9 6-20 (mg/dL) Final Creatinine 12/17/2023 13:04:24 1.0 0.5-1.0 (mg/dL) Final Glomerular filtration rate/1.73 sq M.predicted [Volume Rate/Area] in Serum, Plasma or Blood by Creatinine-based formula (CKD-EPI) 12/17/2023 13:04:24 68 >=60 (mL/min) Final eGFR is calculated based on the CKD-EPI 2020 equation Sodium 12/17/2023 13:04:24 143 135-146 (m mol/L) Final Potassium 12/17/2023 13:04:24 3.7 3.5-5.1 (m mol/L) Final Cl 12/17/2023 13:04:24 107 98-107 (mm ol/L) Final CO2 12/17/2023 13:04:24 21 Below low normal 22- 32 (mmol/L) Final Anion gap 12/17/2023 13:04:24 15 7-15 (mmol /L) Final Glucose 12/17/2023 13:04:24 104 70-120 (mg /dL) Final Albumin 12/17/2023 13:04:24 4.4 3.8-5.0 (g /dL) Final AST (Aspartate aminotransferase) 12/17/2023 13:04:24 29 10-35 (U/L) Fin al Alk Phos 12/17/2023 13:04:24 187 Above high normal 35 -130 (U/L) Final Bilirubin, Total 12/17/2023 13:04:24 0.3 <=1 .2 (mg/dL) Final Calcium 12/17/2023 13:04:24 10.2 8.4-10.2 ( mg/dL) Final Protein 12/17/2023 13:04:24 7.2 6.0-8.3 (g /dL) Final ALT (Alanine aminotransferase) 12/17/2023 13:04:24 31 10-35 (U/L) Kenneth elaine Performing Location [facility] - [facility] [address] [facility] [address]
--- OUTSIDE RECORDS SUMMARY | 2024-01-07 14:08 | External Medical Summary ---
Author Name Unknown Address Unknown Organization K01:[facility] [address] [address] Laboratory Report Ordering Provider Test Date Status STACEY FERNANDEZ 12/17/2023 13:04:24 Final Observation Date Value Abnormality Reference (Units ) Status Follitropin [Units/volume] in Serum or Plasma by 2nd IRP 12/17/2023 13:04:24 99.9 (mIU/mL) Final Follicular Phase: 3.5- 12.5 mIU/mL
Ovulation Phase: 4.7- 21.5 mIU/mL
Luteal Phase: 1.7- 7.7 mIU/mL
Postmenopausal: 25.8-134.8 mIU/mL Performing Location [facility] - [address] [address]
--- OUTSIDE RECORDS SUMMARY | 2024-01-07 14:08 | External Medical Summary | Summary of Care ---
Author Name Unknown Organization [facility] Address [address] [place] [address] Phone [phone] Care Team Providers Care Scientific Database Curator Name Role Phone Bob Kaplan DO, David Vincent Primary Care Provid er Encounter Details Date Type Department Care Team (Late st Contact Info) Description 11/22/2023 Orders Only Outcomes Research Department [address] [place] [address] Katelynn Agudelo CHRA [facility] Other*[id number] Allergies Active Allergy Reactions Criticality Noted Date Comments Oxaprozin Muscle pain,Tachycardia High 03/24/2017 Other reaction(s): Myalgia, Other See Comments Other reaction(s): Tachycardia documented as of this encounter (statuses as of 11/22/2023) Medications Medication Sig Dispensed Refills Start Date [...] as of this encounter (statuses as of 11/22/2023) Active Problems Problem Noted Date Diagnosed Date Vitamin D deficiency 10/19/2022 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 MEDICATION USE AGREEMENT 03/12/2015 Overview: Updated 08/23/18 Edmundo Rojas Jr, DO [place] DDD (degenerative disc disease), cervical 2014 [...] as of this encounter (statuses as of 11/22/2023) Resolved Problems Problem Noted Date Diagnosed Date Resolved Date Sepsis 11/30/2014 12/01/2016 Pyelonephritis 11/30/2014 12/01/2016 Outbursts of anger 07/06/2014 Pelvic pain in female 12/05/20132016 Tobacco use disorder 09/15/2011 016 documented as of this encounter (statuses as of 11/22/2023) Immunizations Name Administration Dates Next Due Covid-19 [...] Description 01/13/2024 8:40 AM EDT [facility] [place] [address] Misa Olson MD [address] [place] [address] 03/10/2024 2:00 PM EDT [facility] [address] [place] [phone] Edmundo Rojas Jr., DO [address] [place] [address] Scheduled Orders Name Type Priority Associated Diagnoses Orde r Schedule MYCODE SUBSEQUENT ADULT Lab Routine [facility] Research Other*[id number] Every 6 Months for 2 Occurrences starting 11/22/2023 until 12/11/2024 Health Maintenance Due Date Last Done Comments [...] as of this encounter Visit Diagnoses Diagnosis [facility] Other*[id number] documented in this encounter Advance Directives Latest [...] the patient have Health Care Power of Hybrid Derivatives Trader? No Care Teams Scientific Database Curator Relationship Specialty Start Date End Date Edmundo Rojas Jr., DO [address] [facility] [place] [address] PCP - General Family Medicine 09/15/11 documented as of this encounter
--- OUTSIDE RECORDS SUMMARY | 2024-01-07 14:08 | External Medical Summary | Summary of Care ---
Author Name Unknown Organization [facility] Address [address] [place] [address] Phone [phone] Care Team Providers Care Comber Setter Name Role Phone Bob Kaplan DO, David Vincent Primary Care Provid er Reason for Visit * Reason Onset Date Comments Advice 12/29/2023 Encounter Details Date Type Department Care Team ([facility] st Contact Info) Description 12/29/2023 Telephone [facility] [address] [place] [phone] Edmundo Rojas Jr., DO [address] [place] [address] Advice Allergies Active Allergy Reactions Criticality Noted Date Comments Oxaprozin Muscle pain,Tachycardia High 03/24/2017 Other reaction(s): Myalgia, Other See Comments Other reaction(s): Tachycardia documented as of this encounter (statuses as of 12/29/2023) Medications Medication Sig Dispensed Refills Start Date [...] 11/13/2023 Active Veozah 45 MG Oral Tablet (Fezolinetant)Indica tions:Symptomatic menopausal or female climacteric states Take 1 Tablet by mouth in the morning. 30 Tablet 3 12/21/2023 Active oxyCODONE-Acetaminop hen 7.5-325 MG Oral TabletIndications:ME DICATION USE AGREEMENT,Failed back surgical syndrome,DDD (degenerative disc disease), lumbar,DDD (degenerative disc disease), cervical Take 1 Tablet by mouth every 8 hours as needed for Pain, Severe. No driving on this medication. Ongoing. 90 Tablet 12/27/2023 Active documented as of this encounter (statuses as of 12/29/2023) Active Problems Problem Noted Date Diagnosed Date [...] as of this encounter (statuses as of 12/29/2023) Resolved Problems Problem Noted Date Diagnosed Date Resolved Date Sepsis 11/30/2014 12/01/2016 Pyelonephritis 11/30/2014 12/01/2016 Outbursts of anger 07/06/2014 Pelvic pain in female 12/05/20132016 Tobacco use disorder 09/15/2011 016 documented as of this encounter (statuses as of 12/29/2023) Immunizations Name Administration Dates Next Due Covid-19 [...] encounter Miscellaneous Notes * Telephone Encounter - Gauri Lloyd LPN - 12/29/2023 10:25 AM EDT Patient has been informed of below message and verbalized understanding. * Telephone Encounter - Edmundo Rojas Jr., DO - 12/29/2023 8:36 AM EDT Encourage patient to increase potassium in diet, but otherwise should not delay surgery. Of note 3.7 on 12/16 and normal in our records since 2019. * Telephone Encounter - Krystal Garza LPN - 12/29/2023 8:27 AM EDT Maria Luisa concepcion from [facility] Anesthesiology Depart Patient has back surgery scheduled on 01/07/2024. Pre-op labs showed hypokalemia at 3.1 She faxed a note and labs to the office. They need to know if the patient is cleared or not for surgery. She has access to EPIC so just document in the chart, if cleared or not. documented in this encounter Plan of Treatment Upcoming Encounters Date Type Department Care Team (Late st Contact Info) Description 01/13/2024 8:40 AM EDT Office Visit Neurology, [place] [address] [place] [address] Misa Olson MD [address] [facility] [place] [phone] 03/10/2024 2:00 PM EDT Office Visit [facility] [address] [place] [phone] Edmundo Rojas Jr., DO [address] [place] [phone] 04/28/2024 9:30 AM EDT Office Visit Gynecology/Obstetrics, [place] [address] [facility] [place] [address] Lindsey Burnett PA-C [address] [facility] [place], [place] [phone] Health Maintenance Due Date Last Done Comments [...] 11/13/2022, Additional history exists GFR 12/16/2024 12/17/2023, 1202/2023, 10/16/2022, Additional history exists Cologuard 01/09/2025 01/09/2022, [...] Power of Attor patricia? No Care Teams Comber Setter Relationship Specialty Start Date End Date Edmundo Rojas Jr., DO [address] [facility] Services [place], [place] [phone] PCP - General Family Medicine 09/15/11 documented as of this encounter
--- OUTSIDE RECORDS SUMMARY | 2024-01-07 14:08 | External Medical Summary | Summary of Care ---
Author Name Unknown Organization [facility] Address [address] [place] [address] Phone [phone] Care Team Providers Care Ripshear Operator Name Role Phone Bob Kaplan DO, David Vincent Primary Care Provid er Reason for Visit * Reason Comments pre-op exam Dr[facility] Castillo [facility] on 01[facility]07[facility]24 Encounter Details Date Type Department Care Team (Late st Contact Info) Description 12/22/2023 5:40 PM EDT Office Visit [facility] [address] [place] [address] Edmundo Rojas Jr., DO [address] [place] [address] Pre-op evaluation*; DDD (degenerative disc disease), lumbar; Spinal stenosis of lumbar region, unspecified whether neurogenic claudication present Allergies Active Allergy Reactions Criticality Noted Date Comments Oxaprozin Muscle pain,Tachycardia High 03/24/2017 Other reaction(s): Myalgia, Other See Comments Other reaction(s): Tachycardia documented as of this encounter (statuses as of 12/22/2023) Medications Medication Sig Dispensed Refills Start Date [...] this medication. Ongoing. 90 Tablet 11/27/2023 Active Veozah 45 MG Oral Tablet (Fezolinetant)Indica tions:Symptomatic menopausal or female climacteric states Take 1 Tablet by mouth in the morning. 30 Tablet 3 12/21/2023 Active documented as of this encounter (statuses as of 12/22/2023) Active Problems Problem Noted Date Diagnosed Date [...] as of this encounter (statuses as of 12/22/2023) Resolved Problems Problem Noted Date Diagnosed Date Resolved Date Sepsis 11/30/2014 12/01/2016 Pyelonephritis 11/30/2014 12/01/2016 Outbursts of anger 07/06/2014 Pelvic pain in female 12/05/20132016 Tobacco use disorder 09/15/2011 016 documented as of this encounter (statuses as of 12/22/2023) Immunizations Name Administration Dates Next Due Covid-19 Ad26, Single Dose (Papi/J&J) 021 Pneumococcal Polysaccharide PPV23 (Pneumovax) TDAP (age 10 and older)(Boostrix) 07/20/2014 documented as of this encounter Social History Tobacco Use Types Packs/Day Years Used Date Smoking Tobacco: Former Cigarettes 0.5 22 0 02/16/1999 - 02/16/2021 Smokeless Tobacco: Never Tobacco Cessation:Counseling Given: No Comments:pt smoke a couple a week Alcohol [...] on file documented as of this encounter Last Filed Vital Signs Vital Sign Reading Time Taken Comments Blood Pressure 136/94 12/22/2023 5:26 PM EDT Pulse 80 12/22/2023 5:26 PM EDT Temperature 37 C (98.6 F) 12/22/2023 5:26 PM EDT Respiratory Rate 76 12/22/2023 5:26 PM EDT Oxygen Saturation 100% 12/22/2023 5:26 PM EDT Inhaled Oxygen Concentration - - Weight 78.9 kg (174 lb) 12/22/2023 5:26 PM EDT Height 152.4 cm (5') 12/22/2023 5:26 PM EDT Body Mass Index 33.98 12/22/2023 5:26 PM EDT documented in this encounter Functional Status Functional Status Response [...] No 11/29/2014 documented as of this encounter Progress Notes * Edmundo Rojas Jr., - 12/22/2023 5:42 PM EDT Subjective: Cary Salazar is a 48 year old female. Chief Complaint Patient presents with pre-op exam Dr. Castillo spine surgery on 01/07/24 HPI: Patient presents today for Pre-op evaluation for proposed back surgery. Overall doing well, nonew complaints. No CP or SOB. To have pre op testing done at [facility] in 2 days. No person or family history of problems with surgery or anesthesia in the past. No other new complaints. PHM: Patient Active Problem List Diagnosis Migraine headache Drug abuse in remission (HCC) DDD (degenerative disc disease), lumbar HTN, goal below 140/90 DDD (degenerative disc disease), cervical MEDICATION USE AGREEMENT Failed back surgical syndrome Vitamin D deficiency Current Outpatient Medications Medication Sig Dispense Refill Albuterol Sulfate HFA 108 (90 Base) MCG/ACT Inhalation Aerosol Solution Inhale 2 Puffs by mouth in the morning and 2 Puffs at noon and 2 Puffs in the evening and 2 Puffs before bedtime. 18 g 1 Topiramate 50 MG Oral Tablet (topAMAX) TAKE ONE TABLET BY MOUTH IN THE MORNING AND AT BEDTIME 180 Tablet 1 busPIRone HCl 15 MG Oral Tablet (Buspar) TAKE 1 TABLET BY MOUTH IN THE MORNING, AT NOON, AND BEFOREBEDTIME as needed for anxiety 90 Tablet 5 PARoxetine HCl 10 MG Oral Tablet (Paxil) Take 1 Tablet by mouth in the morning. 90 Tablet 3 Omeprazole 20 MG Oral Capsule Delayed Release (PriLOSEC) TAKE TWO CAPSULES BY MOUTH ONCE DAILY 180 Capsule 3 Eletriptan Hydrobromide 40 MG Oral Tablet (Relpax) 1 at onset of migraine may repeat in 2 hours max2 doses in 24 hours 10 Tablet 5 oxyCODONE-Acetaminophen 7.5-325 MG Oral Tablet Take 1 Tablet by mouth every 8 hours as needed for Pain, Severe. No driving on this medication. Ongoing. 90 Tablet 0 Veozah 45 MG Oral Tablet (Fezolinetant) Take 1 Tablet by mouth in the morning. 30 Tablet 3 Lisinopril-hydroCHLOROthiazide 20-12.5 MG Oral Tablet TAKE ONE PILL BY MOUTH ONCE A DAY 90 Tablet 3 No current facility-administered medications for this visit. Past Medical History: Diagnosis Date Anxiety and depression DDD (degenerative disc disease) Former smoker GERD (gastroesophageal reflux disease) H/O carpal tunnel repair 04/26/2012 Right wrist, Dr. Dias Hypertension Migraines Neuropathy Outbursts of anger 07/06/2014 Past Surgical History: Procedure Laterality Date ANESTH, TUBAL LIGATION 07/19/2000 DISTAL RADIAL FX/DISLOC, CLOSED TX, W/O MANIPULATION 11/01/2013 EGD, FLEXIBLE, DIAGNOSTIC N/A 05/06/2020 mild schatzki ring, dilated/gastritis/biopsies normal/ESOPHAGOGASTRODUODENOSCOPY (EGD), FLEXIBLE, TRANSORAL, DIAGNOSTIC performed by Taiwo Nichole MD at ENDOSCOPY [facility] LAPAROSCOPY; CHOLECYSTECTOMY N/A 01/08/2022 ROBOTIC LAPAROSCOPIC CHOLECYSTECTOMY performed by Thiago Del Real MD at OR [facility] LAPAROSCOPY;APPENDECTOMY 01/10/2014 OTHER Right 01/2021 repair ijury to arm REDUCTION OF BREAST Bilateral 06/02/2016 REDUCTION MAMMOPLASTY performed by Benjie Mims MD at [place] [facility] [place] REMOVE PELVIS CONTENTS FOR TUMOR 01/10/2014 removed one ovary and part of other ovary SPINAL FUSION, LUMBAR, COMBINED 08/19/2013 L5 S1 Family History Problem Relation Name Age of Onset Cancer Mother Heart Disorder Father Breast Cancer Grandmother (Maternal) Other (heart disease) Other Diabetes Aunt (Maternal) Cancer Aunt (Maternal) Review of patient's allergies indicates: Allergen Reactions Oxaprozin Muscle pain and Tachycardia Other reaction(s): Myalgia, Other See Comments Other reaction(s): Tachycardia Extensive ROS Constitutional (f/c/wt/vision/hearing): Negative Resp (cough/sob/duff): Negative CV (cp/palp/fluttering/diaphoresis/duff/pnd):Negative GI (n/v/d/hrtburn): Negative Endo (hair/cold or heat intol/ 3 p's): Negative Neuro (shaking/weak/fatigu/parasthesi/): Negative Skin (rash/easy bruis/xerosis): Negative (nocturia/hesit/drib/sexual review): Negative Objective: BP 136/94 | Pulse 80 | Temp 37 C (98.6 F) | Resp 76 | Ht 1.524 m (5') | Wt 78.9 kg (174 lb) | SpO2 100% | BMI 33.98 kg/m | BSA 1.83 m Physical Exam: General: alert, healthy, no distress Head: Normocephalic, No masses, lesions, tenderness or abnormalities Eye Exam: PERRLA, EOMI, Conjunctiva are pink and non-injected, fundi benign, sclera clear Ears: External ears normal, Canals clear, TM's Normal Oropharynx: no exudate, no erythema and lips, buccal mucosa, and tongue normal Neck: supple, no adenopathy, no bruits, thyroid normal size, non-tender, without nodularity Heart: regular rate & rhythm, no murmurs and no gallops Lungs: clear to auscultation Abdomen: abdomen soft, nontender, normal bowel sounds and no masses or organomegaly Extremities: no edema, no clubbing or cyanosis Neuro Exam: alert & oriented x 3 with fluent speech, no focal motor/sensory deficits, gait normal, reflexes normal and symmetric, Skin: skin color, texture, turgor are normal, no rashes or significant lesions ASSESSMENT: ICD-10-CM 1. Pre-op evaluation Z01.818 2. DDD (degenerative disc disease), lumbar M51.36 3. Spinal stenosis of lumbar region, unspecified whether neurogenic claudication present M48.061 PLAN: (Z01.818) Pre-op evaluation (primary encounter diagnosis) (M51.36) DDD (degenerative disc disease), lumbar (M48.061) Spinal stenosis of lumbar region, unspecified whether neurogenic claudication present Plan: Medically optimized for proposed surgery, barring any abnormal labs or testing from [facility]. Anyissues, contact the office. Follow Up: Return if symptoms worsen or fail to improve. Return to the office as ordered. Return sooner if having any other problems or concerns. Edmundo Rojas Jr, DO documented in this encounter Nursing Notes * Gauri Lloyd LPN - 12/22/2023 5:30 PM EDT Chief Complaint Patient presents with pre-op exam Dr. Castillo spine surgery on 01/07/24 documented in this encounter Plan of Treatment Upcoming Encounters Date Type Department Care Team (Late st Contact Info) Description 01/13/2024 8:40 AM EDT [place], [facility] [address] [facility] [place] [address] Misa Olson MD [address] [facility] [place] [address] 03/10/2024 2:00 PM EDT Office Visit [facility] [address] [place] [phone] Bob Kaplan, Edmundo Chin, [address] [place] [address] 04/28/2024 9:30 AM EDT Office Visit Gynecology/Obstetrics, [place] [address] [place] [address] Lindsey Burnett PA-C 400 [facility] [place], [place] [phone] Health Maintenance Due Date Last Done Comments Hepatitis C Screening 10/19/1993 Hepatitis B (1 of 3 - 19+ 3-dose series) 10/19/1994 HPV/Co-Test 10/19/2005 Colonoscopy 10/19/2020 Fecal Occult Blood Test 10/19/2020 Sigmoidoscopy 10/19/2020 COVID-19 Vaccine ( - 2022- season) 2023 05/17/2021 Depression Screening 02/11/2024 02/10/2023 Influenza Vaccine (FLU shot) (Season Ended) 2024 Cervical Cancer Screening 06/13/2024 Pap Smear 06/13/2024 06/13/2021, 01/17, 01/15/2012 DTaP,Tdap,and Td Vaccines (2 - Td or Tdap) 07/20/2024 07/20/2014 Mammogram 11/09/2024 11/10/2023, 09/2022, 11/13/2022, Additional history exists GFR 12/16/2024 12/17/2023, [...] as of this encounter Visit Diagnoses Diagnosis Pre-op evaluation- Primary Preoperative examination, unspecified DDD (degenerative disc disease), lumbar Degeneration of lumbar or lumbosacral intervertebral disc Spinal stenosis of lumbar region, unspecified whether neurogenic claudication present documented in this encounter Advance Directives * [...] Power of Attor patricia? No Care Teams Ripshear Operator Relationship Specialty Start Date End Date Edmundo Rojas Jr., DO [address] [facility] [place] [address] PCP - General Family Medicine 09/15/11 documented as of this encounter"
--- OUTSIDE RECORDS SUMMARY | 2024-01-07 14:08 | External Medical Summary | Summary of Care ---
Author Name Unknown Organization [facility] Address [address] [place] [address] Phone [phone] Care Team Providers Care Rock Worker Name Role Phone Bob Kaplan DO, David Vincent Primary Care Provid er Reason for Visit * Reason Comments eRx-Medication Refill Encounter Details Date Type Department Care Team (Late st Contact Info) Description 01/03/2024 Refill [facility] [address] [place] [address] Betzaida Rojas Jr., DO [address] [place] [phone] HTN, goal below 140/90 Allergies Active Allergy Reactions Criticality Noted Date Comments Oxaprozin Muscle pain,Tachycardia High 03/24/2017 Other reaction(s): Myalgia, Other See Comments Other reaction(s): Tachycardia documented as of this encounter (statuses as of 01/04/2024) Medications Medication Sig Dispensed Refills Start Date [...] for anxiety 90 Tablet 5 10/26/2022 Active PARoxetine HCl 10 MG Oral Tablet [...] this medication. Ongoing. 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 MEDICATION USE AGREEMENT 03/12/2015 Overview: Updated 08/23/18 Betzaida Rojas Jr, DO Satnam Baltazar DDD (degenerative [...] as of this encounter (statuses as of 01/04/2024) Resolved Problems Problem Noted Date Diagnosed Date Resolved Date Sepsis 11/30/2014 12/01/2016 Pyelonephritis 11/30/2014 12/01/2016 Outbursts of anger 07/06/2014 Pelvic pain in female 12/05/20132016 Tobacco use disorder 09/15/2011 016 documented as of this encounter (statuses as of 01/04/2024) Immunizations Name Administration Dates Next Due Covid-19 [...] encounter Miscellaneous Notes * Telephone Encounter - Praveen Bright RP - 01/04/2024 2:45 PM EDTSigned Prescriptions: Disp Refills Lisinopril-hydroCHLOROthiazide 20-12.5 MG *90 Tab*3 Sig: TAKE 1 TABLET BY MOUTH DAILYAuthorizing Provider: BETZAIDA ROJAS JR User: PRAVEEN BRIGHT documented in this encounter Plan of Treatment Upcoming Encounters Date Type Department Care Team (Late st Contact Info) Description 01/13/2024 8:40 AM EDT Office Visit Neurology, [place] [address] [facility] [place] [address] Misa Olson MD [address] [facility] [place] [address] 03/10/2024 2:00 PM EDT Office Visit Family Practice, [place] [address] [place] [phone] Bob Kaplan, Betzaida Chin DO [address] [place] [phone] 04/28/2024 9:30 AM EDT Office Visit Gynecology/Obstetrics, [place] [address] [facility] [place] [address] Lindsey Burnett PA-C [address] [place], [place] [phone] Health Maintenance Due Date Last Done Comments [...] as of this encounter Visit Diagnoses Diagnosis HTN, goal below 140/90 Unspecified essential hypertension documented in this encounter Advance Directives * [...] Power of Attor patricia? No Care Teams Rock Worker Relationship Specialty Start Date End Date Betzaida Rojas Jr., DO [address] [place] [address] Services [place] [address] PCP - General Family Medicine 09/15/11 documented as of this encounter
--- OUTSIDE RECORDS SUMMARY | 2024-01-07 14:08 | External Medical Summary | Summary of Care ---
Author Name Unknown Organization [facility] Address [address] [place] [address] Phone [phone] Care Team Providers Care International Student Advisor Name Role Phone Bob Kaplan DO, David Vincent Primary Care Provid er Reason for Visit * Reason Comments Outpatient Testing Encounter Details Date Type Department Care Team (Late st Contact Info) Description 12/17/2023 1:00 PM EDT Laboratory Laboratory, [address] [phone] [facility] [address] [place], [place] [phone] Symptomatic menopausal or female climacteric states Allergies Active Allergy Reactions Criticality Noted Date Comments Oxaprozin Muscle pain,Tachycardia High 03/24/2017 Other reaction(s): Myalgia, Other See Comments Other reaction(s): Tachycardia documented as of this encounter (statuses as of 12/17/2023) Medications Medication Sig Dispensed Refills Start Date [...] as of this encounter (statuses as of 12/17/2023) Active Problems Problem Noted Date Diagnosed Date Vitamin D deficiency 10/19/2022 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 There is anterior and posterior spondylitic ridging at this level. There is stable loss of disc height with anterior and posterior spondylitic ridging at C6-7. HTN, goal below 140/90 03/31/2013 DDD (degenerative disc disease), lumbar 08/15/20 13 Overview: MRI L spine 02/28: Small L5-S1 central to left paracentral disc protrusion with an underlying annular tear Migraine headache 09/15/2011 Overview: Failed inderal, topamax, amitriptyline, tizanidine; insurance would not pay for triptan 2011 Drug abuse in remission 09/15/2011 documented as of this encounter (statuses as of 12/17/2023) Resolved Problems Problem Noted Date Diagnosed Date Resolved Date Sepsis 11/30/2014 12/01/2016 Pyelonephritis 11/30/2014 12/01/2016 Outbursts of anger 07/06/2014 Pelvic pain in female 12/05/20132016 Tobacco use disorder 09/15/2011 016 documented as of this encounter (statuses as of 12/17/2023) Immunizations Name Administration Dates Next Due Covid-19 [...] 8:40 AM EDT Office Visit [facility] [address] [place] [address] Mias Olson MD [address] [facility] [place] [address] 03/10/2024 2:00 PM EDT Office Visit [facility] [address] [place] [phone] Edmundo Rojas Jr., DO [address] [place] [address] Pending Results Name Type Priority Associated Diagnoses Date /Time FSH Lab Routine Symptomatic menopausal or female climacteric states 12/17/2023 1:04 PM EDT Health Maintenance Due Date Last Done Comments [...] as of this encounter Visit Diagnoses Diagnosis Symptomatic menopausal or female climacteric states documented in this encounter Advance Directives * [...] Power of Attor patricia? No Care Teams International Student Advisor Relationship Specialty Start Date End Date Edmundo Rojas Jr., DO [address] [place] [address] [place] [address] PCP - General Family Medicine 09/15/11 documented as of this encounter
--- OUTSIDE RECORDS SUMMARY | 2024-01-07 14:08 | External Medical Summary | Summary of Care ---
Author Name Unknown Organization [facility] Address [address] [place] [address] Phone [phone] Care Team Providers Care Linderman Operator Name Role Phone Bob Kaplan DO, David Vincent Primary Care Provid er Reason for Referral * Medication Prior Authorization - Pending Review Specialty Diagnoses / Procedures Referred By Merrick t Referred To Contact Diagnoses MEDICATION USE AGREEMENT Failed back surgical syndrome DDD (degenerative disc disease), lumbar DDD (degenerative disc disease), cervical Олег Fraire PA-C [address] [place] [address] Referral ID Status Reason Start Date Expiration Date V isits Requested Visits Authorized [id number] Pending Review [id number] Reason for Visit * Reason Onset Date Comments Medication Refill 12/24/2023 Encounter Details Date Type Department Care Team (Late st Contact Info) Description 12/24/[address] [facility] [address] [place] [phone] Edmundo Rojas Jr., DO [address] [place] [address] MEDICATION USE AGREEMENT; Failed [...] sent to pharmacy Thank you, Magda Burton [facility] 12/27/2023,10:19 AM * Telephone Encounter - Олег Fraire PA-C - 12/27/2023 10:06 AM EDT Signed Prescriptions: Disp Refills oxyCODONE-Acetaminophen 7.5-325 MG Oral Ta*90 Tab*0 Sig: Take 1 Tablet by mouth every 8 hours as needed for Pain, Severe. No driving on this medication. Ongoing. Authorizing Provider: ОЛЕГ FRAIRE * Telephone Encounter - Carmen Chadwick [facility] - 12/25/2023 8:10 AM EDTPending Prescriptions: Disp Refills oxyCODONE-Acetaminophen 7.5-325 MG Oral Ta*90 Tab*0 Sig: Take 1 Tablet by mouth every 8 hours as needed for Pain, Severe. No driving on this medication. Ongoing. Electronically signed by Carmen Chadwick [facility] at 12/25/2023 8:10 AM EDT * Telephone Encounter - Carmen Chadwick [facility] - 12/25/2023 8:09 AM EDT I have reviewed the patients controlled substance dispensing history in the Prescription Drug Monitoring Program in compliance with the [facility] regulations before prescribing a controlled [...] medication is due for refill: 12/26 Pharmacy: [id number] Is this [...] [facility]acy [facility] ([facility]) 12/25/23 8:09 AM [phone] Electronically signed by Carmen Chadwick [facility] at 12/25/2023 8:10 AM EDT documented in this encounter Plan of Treatment Upcoming Encounters Date Type Department Care Team (Late st Contact Info) Description 01/13/2024 8:40 AM EDT Office Visit Neurology, Amauri Diaz [address] [place] [address] Misa Olson MD [address] [facility] [place] [address] 03/10/2024 2:00 PM EDT Office Visit [facility] [address] [place] [address] Bob Kpalan, Edmundo Chin DO [address] [place] [address] 04/28/2024 9:30 AM EDT Office Visit Gynecology/Obstetrics, [place] [address] [place] [address] Lindsey Burnett, [place]Jania [address] [place] [phone] Health Maintenance Due Date Last Done Comments [...] Power of Attor patricia? No Care Teams Linderman Operator Relationship Specialty Start Date End Date Edmundo Rojas Jr., DO [address] [place] [phone] PCP - General Family Medicine 09/15/11 documented as of this encounter
--- OUTSIDE RECORDS SUMMARY | 2024-01-07 14:08 | External Medical Summary | Summary of Care ---
Author Name Unknown Organization [facility] Address [address] [place] [address] Phone [phone] Care Team Providers Care Fiber Artist Name Role Phone Bob Kaplan DO, David Vincent Primary Care Provid er Reason for Visit * Precert (Within 10 days (routine)) - Authorized Specialty Diagnoses / Procedures Referred By Merrick robbins Referred To Contact Radiology Diagnoses Spondylolisthesis at L4-L5 level Procedures MRI L SPINE WO CONTRAST Tomas Ram PA-C [address] [place] [id number] Referral ID Status Reason Start Date Expiration Date V isits Requested Visits Authorized [id number] Authorized 11/26/2023 01/24/2024 [id number] Encounter Details Date Type Department Care Team (Latest Contact Info) Description 11/29/2023 10:25 AM EDT - 11/29/2023 11:59 PM EDT Hospital Encounter Radiology, [address] [phone] Arrived Discharge Disposition: Home - Self Care Allergies Active Allergy Reactions Criticality Noted Date Comments Oxaprozin Muscle pain,Tachycardia High 03/24/2017 Other reaction(s): Myalgia, Other See Comments Other reaction(s): Tachycardia documented as of this encounter (statuses as of 11/30/2023) Medications Medication Sig Dispensed Refills Start Date [...] as of this encounter (statuses as of 11/30/2023) Active Problems Problem Noted Date Diagnosed Date [...] as of this encounter (statuses as of 11/30/2023) Resolved Problems Problem Noted Date Diagnosed Date Resolved Date Sepsis 11/30/2014 12/01/2016 Pyelonephritis 11/30/2014 12/01/2016 Outbursts of anger 07/06/2014 Pelvic pain in female 12/05/20132016 Tobacco use disorder 09/15/2011 016 documented as of this encounter (statuses as of 11/30/2023) Immunizations Name Administration Dates Next Due Covid-19 [...] 01/13/2024 8:40 AM EDT Office Visit NeurologyAma[facility] [place] [address] Misa Olson MD [address] [facility] [place] [address] 03/10/2024 2:00 PM EDT Office Visit [facility] [address] [place] [address] Edmundo Rojas Jr., DO [address] [place] [address] Health Maintenance Due Date [...] Not on filedocumented as of this encounter Procedures Procedure Name Priority Date/Time Associated Diagnosis Comments MRI L SPINE WO CONTRAST Routine 11/29/2023 11:44 AM EDT Spondylolisthesis at L4-L5 level documented in this encounter Results * MRI L SPINE WO CONTRAST (11/29/2023 11:44 AM EDT) Anatomical Region Laterality Modality Vertebra, Lspine Magnetic Resona nce 11/30/2023 9:00 AM EDT Narrative 11/30/2023 8:58 AM EDT EXAM: MRI LUMBAR SPINE WITHOUT CONTRAST HISTORY: Low back pain; r/o Spondylolysis; None of the following: Low back pain with standing/walking/extension, lower extremity weakness, or lumbar x-ray with negative result COMPARISON: Multiple, including MRI of the lumbar spine dated 01/18/2015 TECHNIQUE: Multiplanar multisequence MRI of the lumbar spine without contrast was performed. FINDINGS: There is redemonstration of a prior ACDF of L5-S1 with intervertebral disc spacer at the L5-S1 level, in unchanged alignment. Susceptibility artifact emanating from surgical hardware limits evaluation of local anatomy at these levels. Within those limitations: Vertebral body height is maintained. There is grade 1-2 anterolisthesis of L4 on L5, similar to the most recent prior radiographs of the lumbar spine dated 10/29/2023, but new since the most recent MRI of the lumbar spine dated 01/18/2015. There is no obvious bone marrow signal abnormality. There is no obvious spinal cord signal abnormality or cauda equina thickening. The conus medullaris terminates at the L1 level. T12-L1: No significant degenerative disc disease or spinal canal or neuroforaminal stenosis. L1-L2: No significant degenerative disc disease or spinal canal or neuroforaminal stenosis. L2-L3: No significant degenerative disc disease or spinal canal or neuroforaminal stenosis. L3-L4: No significant degenerative disc disease or spinal canal or neuroforaminal stenosis. L4-L5: Posterior decompression. There is grade 1-2 anterolisthesis of L4 on L5 with uncovering of the disc, diffuse disc bulge, and bilateral facet hypertrophy with associated moderate bilateral neuroforaminal stenosis. L5-S1: Posterior decompression without spinal canal or neuroforaminal stenosis. IMPRESSION: Postsurgical changes without evidence of hardware complication or failure. There is grade 1-2 anterolisthesis of L4 on L5 which is new since the most recent available MRI of the lumbar spine dated 01/18/2015, but without significant change when compared to the most recent radiographs dated 10/29/2023. Degenerative changes at L4-5 contribute to moderate bilateral neuroforaminal stenosis at this level. Procedure Note Keyon Rivera MD - 11/30/2023 EXAM: MRI LUMBAR SPINE WITHOUT CONTRAST HISTORY: Low back pain; r/o Spondylolysis; None of the following: Low back painwith standing/walking/extension, lower extremity weakness, or lumbar x-raywith negative result COMPARISON: Multiple, including MRI of the lumbar spine dated 01/18/2015 TECHNIQUE: Multiplanar multisequence MRI of the lumbar spine without contrast wasperformed. FINDINGS: There is redemonstration of a prior ACDF of L5-S1 with intervertebral discspacer at the L5-S1 level, in unchanged alignment. Susceptibilityartifact emanating from surgical hardware limits evaluation of localanatomy at these levels. Within those limitations: Vertebral body height is maintained. There is grade 1-2 anterolisthesisof L4 on L5, similar to the most recent prior radiographs of the lumbarspine dated 10/29/2023, but new since the most recent MRI of the lumbarspine dated 01/18/2015. There is no obvious bone marrow signalabnormality. There is no obvious spinal cord signal abnormality or cauda equinathickening. The conus medullaris terminates at the L1 level. T12-L1: No significant degenerative disc disease or spinal canal orneuroforaminal stenosis. L1-L2: No significant degenerative disc disease or spinal canal orneuroforaminal stenosis. L2-L3: No significant degenerative disc disease or spinal canal orneuroforaminal stenosis. L3-L4: No significant degenerative disc disease or spinal canal orneuroforaminal stenosis. L4-L5: Posterior decompression. There is grade 1-2 anterolisthesis of L4on L5 with uncovering of the disc, diffuse disc bulge, and bilateral facethypertrophy with associated moderate bilateral neuroforaminal stenosis. L5-S1: Posterior decompression without spinal canal or neuroforaminalstenosis. IMPRESSION: Postsurgical changes without evidence of hardware complication or failure.There is grade 1-2 anterolisthesis of L4 on L5 which is new since themost recent available MRI of the lumbar spine dated 01/18/2015, butwithout significant change when compared to the most recent radiographsdated 10/29/2023. Degenerative changes at L4-5 contribute to moderatebilateral neuroforaminal stenosis at this level. Tomas Ram PA-C RAD MRI-MRA documented in this encounter Visit Diagnoses Diagnosis Spondylolisthesis at L4-L5 level documented in this encounter Advance Directives Latest [...] the patient have Health Care Power of Distillation Operator Helper? No Care Teams Fiber Artist Relationship Specialty Start Date End Date Edmundo Rojas Jr., DO [address] [facility] [place], [place] [phone] PCP - General Family Medicine 09/15/11 documented as of this encounter
--- OUTSIDE RECORDS SUMMARY | 2024-01-07 14:09 | External Medical Summary | Summary of Care ---
Author Name Unknown Organization [facility] Address [address] [place] [address] Phone [phone] Care Team Providers Care Website/Blog Editor Name Role Phone Bob Kaplan DO, David Vincent Primary Care Provid er Encounter Details Date Type Department Care Team (Latest Contact Info) Description 11/10/2023 3:34 PM EDT - 11/10/2023 11:59 PM EDT Hospital Encounter Radiology, [facility] [address] [place] [phone] Arrived Discharge Disposition: Home - Self Care Allergies Active Allergy Reactions Criticality Noted Date Comments Oxaprozin Muscle pain,Tachycardia High 03/24/2017 Other reaction(s): Myalgia, Other See Comments Other reaction(s): Tachycardia documented as of this encounter (statuses as of 11/11/2023) Medications Medication Sig Dispensed Refills Start Date [...] the morning. 90 Tablet 3 07/30/2023 Active Eletriptan Hydrobromide 40 MG Oral Tablet (Relpax)Indications: Status migrainosus 1 at onset of migraine may repeat in 2 hours max 2 doses in 24 hours 10 Tablet 5 08/25/2023 Active Omeprazole 20 MG Oral Capsule Delayed [...] medication. Ongoing. 90 Tablet 0 11/01/2023 Active documented as of this encounter (statuses as of 11/11/2023) Active Problems Problem Noted Date Diagnosed Date [...] as of this encounter (statuses as of 11/11/2023) Resolved Problems Problem Noted Date Diagnosed Date Resolved Date Sepsis 11/30/2014 12/01/2016 Pyelonephritis 11/30/2014 12/01/2016 Outbursts of anger 07/06/2014 Pelvic pain in female 12/05/20132016 Tobacco use disorder 09/15/2011 016 documented as of this encounter (statuses as of 11/11/2023) Immunizations Name Administration Dates Next Due Covid-19 [...] EDT Office Visit NeurologyAmauri [address] [place] [address] [facility]isa Olson MD [address] [facility] [address] 03/10/2024 2:00 PM EDT Office Visit [facility] [address] [place] [phone] Edmundo Rojas Jr., DO [address] [place] [address] Pending Results Name Type Priority Associated Diagnoses Date /Time MAMMOGRAM SCREENING LUIS BILATERAL Medical Imaging Routine Encounter for screening mammogram for breast cancer 11/10/2023 3:44 PM EDT Health Maintenance Due Date Last Done Comments Hepatitis C Screening 10/19/1993 Hepatitis B (1 of 3 - 19+ 3-dose series) 10/19/1994 HPV/Co-Test 10/19/2005 Colonoscopy 10/19/2020 Fecal Occult Blood Test 10/19/2020 Sigmoidoscopy 10/19/2020 COVID-19 Vaccine ( season) 2023 05/17/2021 Depression Screening 02/11/2024 02/10/2023 Influenza Vaccine (FLU shot) (Season Ended) 2024 Mammogram 05/21/2024 05/21/2023, 10/18, 10/16/2022, Additional history exists Cervical Cancer Screening 06/13/2024 Pap Smear 06/13/2024 06/13/2021, 01/17, 01/15/2012 GFR 06/25/2024 06/25/2023, 09/18, 12/05/2021, Additional history exists DTaP,Tdap,and Td Vaccines (2 - Td or Tdap) 07/20/2024 07/20/2014 Cologuard 01/09/2025 01/09/2022, 12/17, 01/04/2022 Colorectal Cancer [...] as of this encounter Visit Diagnoses Diagnosis Encounter for screening mammogram for breast cancer documented in this encounter Advance Directives Latest [...] the patient have Health Care Power of Proposal Specialist? No Care Teams Website/Blog Editor Relationship Specialty Start Date End Date Edmundo Rojas Jr., DO [address] [facility] [place] [address] PCP - General Family Medicine 09/15/11 documented as of this encounter
--- OUTSIDE RECORDS SUMMARY | 2024-01-07 14:09 | External Medical Summary | Summary of Care ---
Author Name Unknown Organization [facility] Address [address] [place] [address] Phone [phone] Care Team Providers Care Metal Washing Machine Operator Name Role Phone Bob Kaplan DO, David Vincent Primary Care Provid er Reason for Referral * Evaluate & Treat - Unlimited Visits (Within 30 days (routine)) - Pending Review Specialty Diagnoses / Procedures Referred By Merrick robbins Referred To Contact Neuro/Ortho Surgery - Spine. / Neurological Surgery Diagnoses Failed back surgical syndrome DDD (degenerative disc disease), lumbar DDD (degenerative disc disease), cervical Edmundo Rojas Jr., DO [address] [place] [address] Referral ID Status Reason Start Date Expiration Date Visits Requested Visits Authorized [id number] Pending Review Specialty Services Required 11/05/2023 999 [id number] Question Answer Referral Priority Within 30 days (routine) Where should this appointment be scheduled? External Select spine region: Back - Thoracic/Lumbar Do you have any recent complete loss of bladder or bowel function? No Reason for Visit * Reason Onset Date Comments Test Results 11/05/2023 Encounter Details Date Type Department Care Team ([facility] st Contact Info) Description 11/05/2023 Telephone [facility] [place] [address] [place] [address] Edmundo Rojas Jr., DO [address] [place] [address] Test Results Allergies Active Allergy Reactions Criticality Noted Date Comments Oxaprozin Muscle pain,Tachycardia High 03/24/2017 Other reaction(s): Myalgia, Other See Comments Other reaction(s): Tachycardia documented as of this encounter (statuses as of 11/08/2023) Medications Medication Sig Dispensed Refills Start Date [...] as of this encounter (statuses as of 11/08/2023) Active Problems Problem Noted Date Diagnosed Date Vitamin D deficiency 10/19/2022 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 MEDICATION USE AGREEMENT 03/12/2015 Overview: Updated 08/23/18 Edmundo Rojas Jr, DO [place] DDD (degenerative disc disease), cervical 2014 Overview: [...] as of this encounter (statuses as of 11/08/2023) Resolved Problems Problem Noted Date Diagnosed Date Resolved Date Sepsis 11/30/2014 12/01/2016 Pyelonephritis 11/30/2014 12/01/2016 Outbursts of anger 07/06/2014 Pelvic pain in female 12/05/20132016 Tobacco use disorder 09/15/2011 016 documented as of this encounter (statuses as of 11/08/2023) Immunizations Name Administration Dates Next Due Covid-19 [...] encounter Miscellaneous Notes * Telephone Encounter - Micheline Devries OSA - 11/08/2023 11:02 AM EDT Patient is scheduled to see Dr. Castillo's PA on 11/16/23 at 10:30 am in [place]. She is aware of the apt date, time and location. * Telephone Encounter - Edmundo Rojas Jr., DO - 11/05/2023 1:09 PM EDT Ordered, please help set up with requested provider. * Telephone Encounter - Gauri Lloyd LPN - 11/05/2023 1:05 PM EDT Patient has been informed of below message and verbalized understanding. Patient would like to be referred [place]illo [place] [facility] Please auth pending referral * Telephone Encounter - Edmundo Rojas Jr., DO - 11/05/2023 11:40 AM EDT Xray back, as below. Please inform the patient. Overall progression of degenerative changes. If symptoms continue to worsen, may need to follow up with surgeon for re- evaluation of new progression, etc. IMPRESSION: 1. Degenerative disc disease reflected as a decrease in disc space height and anterior endplate osteophytosis L4-L5 and L5-S1. Moderate disc space narrowing. 2. Anterolisthesis of L4 with respect to L5 of approximately 10 mm. 3. Surgical plate and pedicle screws L5 and S1. Interbody fusion L5-S1. documented in this encounter Plan of Treatment Upcoming Encounters Date Type Department Care Team (Late st Contact Info) Description 11/10/2023 4:00 PM EDT Appointment Radiology, [facility] [address] [place] [phone] 01/13/2024 8:40 AM EDT Office Visit Neurology, Amauri Diaz [address] [place] [address] Misa Olson MD [address] [facility] [phone] 03/10/2024 2:00 PM EDT Office Visit [facility], [place] [address] [place] [phone] Edmundo Rojas Jr., [address] [place] [address] Scheduled Referrals Name Type Priority Associated Diagnoses Orde r Schedule SPINE SURGERY REFERRAL OP Referral Within 30 days (routine) Failed back surgical syndrome DDD (degenerative disc disease), lumbar DDD (degenerative disc disease), cervical Ordered: 11/05/2023 Health Maintenance Due Date Last Done Comments [...] as of this encounter Visit Diagnoses Diagnosis Failed back surgical syndrome- Primary Other unspecified back disorder DDD (degenerative disc [...] the patient have Health Care Power of Hot Saw Operator? No Care Teams Metal Washing Machine Operator Relationship Specialty Start Date End Date Edmundo Rojas Jr., DO [address] [place] [address] Services [place] [address] PCP - General Family Medicine 09/15/11 documented as of this encounter
--- OUTSIDE RECORDS SUMMARY | 2024-01-07 14:09 | External Medical Summary | Summary of Care ---
Author Name Unknown Organization [facility] Address [address] [place] [address] Phone [phone] Care Team Providers Care Interactive Art Director Name Role Phone Bob Kaplan DO, David Vincent Primary Care Provid er Reason for Visit * Reason Onset Date Comments Medication Refill 11/12/2023 Encounter Details Date Type Department Care Team (Late st Contact Info) Description 11/12/2023 Refill [facility] [address] [place] [address] Betzaida Rojas Jr., DO [address] [place] [phone] Status migrainosus Allergies Active Allergy Reactions Criticality Noted Date Comments Oxaprozin Muscle pain,Tachycardia High 03/24/2017 Other reaction(s): Myalgia, Other See Comments Other reaction(s): Tachycardia documented as of this encounter (statuses as of 11/13/2023) Medications Medication Sig Dispensed Refills Start Date [...] ONCE DAILY 180 Capsule 3 10/29/2023 Active oxyCODONE-Acetamin ophen 7.5-325 MG Oral TabletIndications: [...] 24 hours 10 Tablet 5 11/13/2023 Active Eletriptan Hydrobromide 40 MG Oral Tablet (Relpax)Indication s:Status migrainosus 1 at onset of migraine may repeat in 2 hours max 2 doses in 24 hours 10 Tablet 5 08/25/2023 Discontinue d(Refill) documented as of this encounter (statuses as of 11/13/2023) Active Problems Problem Noted Date Diagnosed Date [...] as of this encounter (statuses as of 11/13/2023) Resolved Problems Problem Noted Date Diagnosed Date Resolved Date Sepsis 11/30/2014 12/01/2016 Pyelonephritis 11/30/2014 12/01/2016 Outbursts of anger 07/06/2014 Pelvic pain in female 12/05/20132016 Tobacco use disorder 09/15/2011 016 documented as of this encounter (statuses as of 11/13/2023) Immunizations Name Administration Dates Next Due Covid-19 [...] encounter Miscellaneous Notes * Telephone Encounter - Edward Cao RPh - 11/13/2023 12:48 PM EDT Signed Prescriptions: Disp Refills Eletriptan Hydrobromide 40 MG Oral Tablet *10 Tab*5 Si at onset of migraine may repeat in 2 hours max 2 doses in 24 hoursAuthorizing Provider: EBTZAIDA ROJAS JR User: EDWARD CAO --------- Electronically signed by Edward Cao [facility] located [facility] at 11/13/2023 12:48 PM EDT documented in this encounter Plan of Treatment Upcoming Encounters Date Type Department Care Team (Late st Contact Info) Description 01/13/2024 8:40 AM EDT Office Visit Neurology, Amauri Diaz [address] [place] [address] Misa Olson MD [address] [facility] [place] [address] 03/10/2024 2:00 PM EDT Office Visit [facility] [address] [place] [phone] Bob Kaplan, Betzaida Chin DO [address] [place] [phone] Health Maintenance Due Date Last Done Comments [...] as of this encounter Visit Diagnoses Diagnosis Status migrainosus Variants of migraine, not elsewhere classified, without mention of intractable migraine without mention of status migrainosus documented in this encounter Advance Directives Latest [...] the patient have Health Care Power of Case Management Manager? No Care Teams Interactive Art Director Relationship Specialty Start Date End Date Betzaida Rojas Jr., DO [address] [place] [address] PCP - General Family Medicine 09/15/11 documented as of this encounter
--- OUTSIDE RECORDS SUMMARY | 2024-01-07 14:09 | External Medical Summary | Summary of Care ---
Author Name Unknown Organization [facility] Address [address] [place] [address] Phone [phone] Care Team Providers Care Charrer Name Role Phone Bob Kaplan DO, David Vincent Primary Care Provid er Reason for Visit * Reason Onset Date Comments Medication Refill 08/10/2023 Encounter Details Date Type Department Care Team (Late st Contact Info) Description 08/10/20[facility] [address] [place] [address] Page Fraire PA-C [address] [place] [phone] MEDICATION USE AGREEMENT; Failed back surgical syndrome; DDD (degenerative disc disease), lumbar; DDD (degenerative disc disease), cervical Allergies Active Allergy Reactions Criticality Noted Date Comments Oxaprozin Muscle pain,Tachycardia High 03/24/2017 Other reaction(s): Myalgia, Other See Comments Other reaction(s): Tachycardia documented as of this encounter (statuses as of 08/11/2023) Medications Medication Sig Dispensed Refills Start Date End Date Status Omeprazole 20 MG Oral Capsule Delayed Release (PriLOSEC) TAKE TWO CAPSULES BY MOUTH ONCE DAILY 180 Capsule 3 02/10/2022 Active Albuterol Sulfate HFA 108 (90 Base) MCG/ACT [...] A DAY 90 Tablet 3 11/27/2022 Active Eletriptan Hydrobromide 40 MG Oral Tablet (Relpax)Indication s:Status migrainosus 1 at onset of migraine may repeat in 2 hours max 2 doses in 24 hours 10 Tablet 5 05/25/2023 Active PARoxetine HCl 10 MG Oral Tablet (Paxil)Indications :Symptomatic menopausal or female climacteric states Take 1 Tablet by mouth in the morning. 90 Tablet 3 07/30/2023 Active oxyCODONE-Acetamin ophen 7.5-325 MG Oral TabletIndications: MEDICATION USE AGREEMENT,Failed back surgical syndrome,DDD (degenerative disc disease), lumbar,DDD (degenerative disc disease), cervical Take 1 Tablet by mouth 2 times a day as needed for Pain, Severe. No driving on this medication. Ongoing. 45 Tablet 0 08/11/2023 Active oxyCODONE-Acetamin ophen 7.5-325 MG Oral TabletIndications: MEDICATION USE AGREEMENT,Failed back surgical syndrome,DDD (degenerative disc disease), lumbar,DDD (degenerative disc disease), cervical Take 1 Tablet by mouth 2 times a day as needed for Pain, Severe. No driving on this medication. Ongoing. 45 Tablet 0 07/21/2023 Discontinue d(Refill) documented as of this encounter (statuses as of 08/11/2023) Active Problems Problem Noted Date Diagnosed Date [...] as of this encounter (statuses as of 08/11/2023) Resolved Problems Problem Noted Date Diagnosed Date Resolved Date Sepsis 11/30/2014 12/01/2016 Pyelonephritis 11/30/2014 12/01/2016 Outbursts of anger 07/06/2014 Pelvic pain in female 12/05/20132016 Tobacco use disorder 09/15/2011 016 documented as of this encounter (statuses as of 08/11/2023) Immunizations Name Administration Dates Next Due Covid-19 Ad26, Single Dose (Papi/J&J) 021 Pneumococcal Polysaccharide PPV23 (Pneumovax) TDAP (age 10 and older)(Boostrix) 07/20/2014 documented as of this encounter Social History Tobacco Use Types Packs/Day Years Used Date Smoking Tobacco: Former Cigarettes 0.5 22 Q uit: 02/16/2021 Smokeless Tobacco: Never Comments:pt smoke a [...] Encounter - Betzaida Rojas Jr., DO - 08/11/2023 8:21 AM EST Signed Prescriptions: Disp Refills oxyCODONE-Acetaminophen 7.5-325 MG Oral Ta*45 Tab*0 Sig: Take 1 Tablet by mouth 2 times a day as needed for Pain, Severe. No driving on this medication. Ongoing. Authorizing Provider: BETZAIDA ROJAS JR * Telephone Encounter - Bob Kaplan, Betzaida Chin, DO - 08/11/2023 8:19 AM EST I have reviewed the patients controlled substance dispensing history in the Prescription Drug Monitoring Program in compliance with the [facility] regulations before prescribing a controlled substance. Last [...] CREATININE TEJAL 97 NITRITE TEJAL 5 pH TEJLA 5.5 Results for orders placed or performed [...] REQUEST. CUTOFF CONCENTRATION * Telephone Encounter - Abe Jason, [facility] - 08/11/2023 8:03 AM EST Pending Prescriptions: Disp Refills oxyCODONE-Acetaminophen 7.5-325 MG Oral Ta*45 Tab*0 Sig: Take 1 Tablet by mouth 2 times a day as needed for Pain, Severe. No driving on this medication. Ongoing. * Telephone Encounter - Abe Jason [facility] - 08/11/2023 8:02 AM EST I have reviewed the patients controlled substance dispensing history in the Prescription Drug Monitoring Program in compliance with the [facility] regulations before prescribing a controlled substance. PDMP checked on 08/11/2023. Pending Prescriptions: Disp Refills oxyCODONE-Acetaminophen 7.5-325 MG Oral T*45 Tab*0 Sig: Take 1 Tablet by mouth 2 times a day as needed for Pain, Severe. No driving on this medication. Ongoing. Last Visit: 06/23/2023 (in office), Visit date not found (telemedicine) Next Visit: 10/25/2023 Date medication was last filled: 07/23/23 Date medication is due for refill: 08/13/23 [facility]acy: [id number] Is this request for a controlled substance? Yes and Urine Drug Screen was completed Toxicology results: Results for orders placed [...] REQUEST. CUTOFF CONCENTRATION Please approve if appropriate. Thanks, Abe Jason, PharmD Clinical Pharmacist Centralized Clinical Pharmacy Services (CCPS) (formerly Telepharmacy) [phone] 08/11/2023, 8:02 AM documented in this encounter Plan of Treatment Upcoming Encounters Date Type Department Care Team (Late st Contact Info) Description 10/25/2023 2:40 PM EDT [facility] [address] [place] [phone] Betzaida Rojas Jr., DO [address] [place] [phone] 11/10/2023 4:00 PM EDT Appointment Radiology, [facility] [address] [facility] [place] [phone] 01/13/2024 8:40 AM EDT Office Visit Neurology, Amauri Diaz [address] [place] [address] Misa Olson MD [address] [facility] [place] [address] Health Maintenance Due Date Last Done Comments Hepatitis B (1 of 3 - 3-dose series) 1975 Hepatitis C Screening 10/19/1993 HPV/Co-Test 10/19/2005 Colonoscopy 10/19/2020 Fecal Occult Blood Test 10/19/2020 Sigmoidoscopy 10/19/2020 COVID-19 Vaccine (2 - season) 2023 05/17/2021 Influenza Vaccine (FLU shot) (#1) 2023 Depression Screening 02/11/2024 02/10/2023 Mammogram 05/21/2024 05/21/2023, 10/18, 10/16/2022, Additional history [...] the patient have Health Care Power of Analysis Intern? No Care Teams Charrer Relationship Specialty Start Date End Date Betzaida Rojas Jr., DO [address] [facility] [place] [address] PCP - General Family Medicine 09/15/11 documented as of this encounter
--- OUTSIDE RECORDS SUMMARY | 2024-01-07 14:09 | External Medical Summary | Summary of Care ---
Author Name Unknown Organization [facility] Address [address] [place] [address] Phone [phone] Care Team Providers Care Adult Daycare Coordinator Name Role Phone Bob Kaplan DO, David Vincent Primary Care Provid er Reason for Visit * Reason Onset Date Comments Medication Refill 08/24/2023 Encounter Details Date Type Department Care Team (Late st Contact Info) Description 08/24/[address] [facility] [address] [place] [address] Betzaida Rojas Jr., DO [address] [place] [phone] Status migrainosus Allergies Active Allergy Reactions Criticality Noted Date Comments Oxaprozin Muscle pain,Tachycardia High 03/24/2017 Other reaction(s): Myalgia, Other See Comments Other reaction(s): Tachycardia documented as of this encounter (statuses as of 08/25/2023) Medications Medication Sig Dispensed Refills Start Date [...] medication. Ongoing. 45 Tablet 0 08/11/2023 Active Eletriptan Hydrobromide 40 MG Oral Tablet (Relpax)Indication s:Status migrainosus 1 at onset of migraine may repeat in 2 hours max 2 doses in 24 hours 10 Tablet 5 08/25/2023 Active Eletriptan Hydrobromide 40 MG Oral Tablet (Relpax)Indication s:Status migrainosus 1 at onset of migraine may repeat in 2 hours max 2 doses in 24 hours 10 Tablet 5 05/25/2023 Discontinue d(Refill) documented as of this encounter (statuses as of 08/25/2023) Active Problems Problem Noted Date Diagnosed Date [...] as of this encounter (statuses as of 08/25/2023) Resolved Problems Problem Noted Date Diagnosed Date Resolved Date Sepsis 11/30/2014 12/01/2016 Pyelonephritis 11/30/2014 12/01/2016 Outbursts of anger 07/06/2014 Pelvic pain in female 12/05/20132016 Tobacco use disorder 09/15/2011 016 documented as of this encounter (statuses as of 08/25/2023) Immunizations Name Administration Dates Next Due Covid-19 [...] encounter Miscellaneous Notes * Telephone Encounter - India Guevara RPh - 08/25/2023 3:17 PM ESTSigned Prescriptions: Disp Refills Eletriptan Hydrobromide 40 MG Oral Tablet *10 Tab*5 Si at onset of migraine may repeat in 2 hours max 2 doses in 24 hoursAuthorizing Provider: BETZAIDA ROJAS JR User: INDIA GUEVARA documented in this encounter Plan of Treatment Upcoming Encounters Date Type Department Care Team (Late st Contact Info) Description 10/25/2023 2:40 PM EDT Office Visit [address] [place] [address] Bob Kaplan, Betzaida Chin, DO [address] [place] [address] 11/10/2023 4:00 PM EDT Appointment Radiology, [facility] [address] [place] [phone] 01/13/2024 8:40 AM EDT [facility] [place] [address] Misa Olson MD [address] [facility] [place] [phone] Health Maintenance Due Date Last Done Comments [...] the patient have Health Care Power of Appraisal Technician? No Care Teams Adult Daycare Coordinator Relationship Specialty Start Date End Date Betzaida Rojas Jr., DO [address] [place] [address] Services [place] [address] PCP - General Family Medicine 09/15/11 documented as of this encounter
--- OUTSIDE RECORDS SUMMARY | 2024-01-07 14:09 | External Medical Summary | Summary of Care ---
Author Name Unknown Organization [facility] Address [address] [place] [address] Phone [phone] Care Team Providers Care Integration Aide Name Role Phone Bob Kaplan DO, David Vincent Primary Care Provid er Reason for Visit * Reason Onset Date Comments Medication Refill 10/12/2023 Encounter Details Date Type Department Care Team (Late st Contact Info) Description 10/12/2023 Refill [facility] [address] [place] [address] Page Fraire PA-C [address] [place] [phone] MEDICATION USE AGREEMENT; Failed back surgical syndrome; DDD (degenerative disc disease), lumbar; DDD (degenerative disc disease), cervical Allergies Active Allergy Reactions Criticality Noted Date Comments Oxaprozin Muscle pain,Tachycardia High 03/24/2017 Other reaction(s): Myalgia, Other See Comments Other reaction(s): Tachycardia documented as of this encounter (statuses as of 10/13/2023) Medications Medication Sig Dispensed Refills Start Date [...] 24 hours 10 Tablet 5 08/25/2023 Active oxyCODONE-Acetamin ophen 7.5-325 MG Oral TabletIndications: MEDICATION USE AGREEMENT,Failed back surgical syndrome,DDD (degenerative disc disease), lumbar,DDD (degenerative disc disease), cervical Take 1 Tablet by mouth 2 times a day as needed for Pain, Severe. No driving on this medication. Ongoing. 45 Tablet 0 10/13/2023 Active oxyCODONE-Acetamin ophen 7.5-325 MG Oral TabletIndications: MEDICATION USE AGREEMENT,Failed back surgical syndrome,DDD (degenerative disc disease), lumbar,DDD (degenerative disc disease), cervical Take 1 Tablet by mouth 2 times a day as needed for Pain, Severe. No driving on this medication. Ongoing. 45 Tablet 0 09/23/2023 Discontinue d(Refill) documented as of this encounter (statuses as of 10/13/2023) Active Problems Problem Noted Date Diagnosed Date [...] as of this encounter (statuses as of 10/13/2023) Resolved Problems Problem Noted Date Diagnosed Date Resolved Date Sepsis 11/30/2014 12/01/2016 Pyelonephritis 11/30/2014 12/01/2016 Outbursts of anger 07/06/2014 Pelvic pain in female 12/05/20132016 Tobacco use disorder 09/15/2011 016 documented as of this encounter (statuses as of 10/13/2023) Immunizations Name Administration Dates Next Due Covid-19 [...] Encounter - Betzaida Rojas Jr., DO - 10/13/2023 9:31 AM EDT Signed Prescriptions: Disp Refills oxyCODONE-Acetaminophen 7.5-325 MG Oral Ta*45 Tab*0 Sig: Take 1 Tablet by mouth 2 times a day as needed for Pain, Severe. No driving on this medication. Ongoing. Authorizing Provider: BETZAIDA ROJAS JR * Telephone Encounter - Bob Lynn, Betzaida Chin, DO - 10/13/2023 9:29 AM EDT I have reviewed the patients controlled substance dispensing history in the Prescription Drug Monitoring Program in compliance with the [facility] regulations before prescribing a controlled substance. [...] REQUEST. CUTOFF CONCENTRATION * Telephone Encounter - Page Fraire PA-C - 10/13/2023 9:26 AM EDT Pending Prescriptions: Disp Refills oxyCODONE-Acetaminophen 7.5-325 MG Oral Ta*45 Tab*0 Sig: Take 1 Tablet by mouth 2 times a day as needed for Pain, Severe. No driving on this medication. Ongoing. * Telephone Encounter - Hyun Chapman [facility] - 10/13/2023 8:53 AM EDTPending Prescriptions: Disp Refills oxyCODONE-Acetaminophen 7.5-325 MG Oral Ta*45 Tab*0 Sig: Take 1 Tablet by mouth 2 times a day as needed for Pain, Severe. No driving on this medication. Ongoing. * Telephone Encounter - Hyun Cahpman RPh - 10/13/2023 8:52 AM EDT I have reviewed the patients controlled substance dispensing history in the Prescription Drug Monitoring Program in compliance with the [facility] regulations before prescribing a controlled substance. PDMP checked on 10/13/2023. Pending Prescriptions: Disp Refills oxyCODONE-Acetaminophen 7.5-325 MG Oral T*45 Tab*0 Sig: Take 1 Tablet by mouth 2 times a day as needed for Pain, Severe. No driving on this medication. Ongoing. Last Visit: 06/23/2023 (in office), Visit date not found (telemedicine) Next Visit: 10/29/2023 Date medication was last filled: 09/23/2023 Date medication is due for refill: 10/15/2023 [facility]acy: [id number] [place] Is this request for a controlled substance? [...] CONCENTRATION Please approve if appropriate. Thank you, Hyun Chapman [facility] Clinical Pharmacist Centralized Clinical Pharmacy Services (CCPS) (formerly Telepharmacy) 10/13/23 8:52 AM [phone] documented in this encounter Plan of Treatment Upcoming Encounters Date Type Department Care Team (Late st Contact Info) Description 10/29/2023 2:00 PM EDT Office Visit [address] [place] [address] Bob Kaplan, Betzaida Chin, DO [address] [place] [address] 11/10/2023 4:00 PM EDT Appointment Radiology, [facility] [address] [place] [phone] 01/13/2024 8:40 AM EDT Office Visit Neurology, [facility] [address] [facility] [place] [address] Misa Olson MD [address] [facility] [place] [address] Health Maintenance Due Date Last Done Comments Hepatitis C Screening 10/19/1993 Hepatitis B (1 of 3 - 19+ 3-dose series) 10/19/1994 HPV/Co-Test 10/19/2005 Colonoscopy 10/19/2020 Fecal Occult Blood Test 10/19/2020 Sigmoidoscopy 10/19/2020 COVID-19 Vaccine ( - season) 2023 05/17/2021 Influenza Vaccine (FLU [...] the patient have Health Care Power of Program Management Analyst? No Care Teams Integration Aide Relationship Specialty Start Date End Date Betzaida Rojas Jr., DO [address] [place] [address] [place] [address] PCP - General Family Medicine 09/15/11 documented as of this encounter
--- OUTSIDE RECORDS SUMMARY | 2024-01-07 14:09 | External Medical Summary | Summary of Care ---
Author Name Unknown Organization [facility] Address [address] [place] [address] Phone [phone] Care Team Providers Care Foundry Manager Name Role Phone Bob Kaplan DO, David Vincent Primary Care Provid er Reason for Visit * Reason Onset Date Comments Medication Refill 09/22/2023 Encounter Details Date Type Department Care Team (Late st Contact Info) Description 09/22/2023 Refill [facility] [address] [place] [address] Edmundo Rojas Jr., DO [address] [place] [phone] MEDICATION USE AGREEMENT; Failed back surgical syndrome; DDD (degenerative disc disease), lumbar; DDD (degenerative disc disease), cervical Allergies Active Allergy Reactions Criticality Noted Date Comments Oxaprozin Muscle pain,Tachycardia High 03/24/2017 Other reaction(s): Myalgia, Other See Comments Other reaction(s): Tachycardia documented as of this encounter (statuses as of 09/23/2023) Medications Medication Sig Dispensed Refills Start Date [...] this medication. Ongoing. 45 Tablet 0 09/23/2023 Active oxyCODONE-Acetamin ophen 7.5-325 MG Oral TabletIndications: MEDICATION USE AGREEMENT,Failed back surgical syndrome,DDD (degenerative disc disease), lumbar,DDD (degenerative disc disease), cervical Take 1 Tablet by mouth 2 times a day as needed for Pain, Severe. No driving on this medication. Ongoing. 45 Tablet 0 09/03/2023 Discontinue d(Refill) documented as of this encounter (statuses as of 09/23/2023) Active Problems Problem Noted Date Diagnosed Date [...] as of this encounter (statuses as of 09/23/2023) Resolved Problems Problem Noted Date Diagnosed Date Resolved Date Sepsis 11/30/2014 12/01/2016 Pyelonephritis 11/30/2014 12/01/2016 Outbursts of anger 07/06/2014 Pelvic pain in female 12/05/20132016 Tobacco use disorder 09/15/2011 016 documented as of this encounter (statuses as of 09/23/2023) Immunizations Name Administration Dates Next Due Covid-19 [...] encounter Miscellaneous Notes * Telephone Encounter - Олег Fraire PA-C - 09/23/2023 9:38 AM EST Signed Prescriptions: Disp Refills oxyCODONE-Acetaminophen 7.5-325 MG Oral Ta*45 Tab*0 Sig: Take 1 Tablet by mouth 2 times a day as needed for Pain, Severe. No driving on this medication. Ongoing. Authorizing Provider: ОЛЕГ FRAIRE * Telephone Encounter - Belén Ayoub [facility] - 09/23/2023 8:57 AM ESTPending Prescriptions: Disp Refills oxyCODONE-Acetaminophen 7.5-325 MG Oral Ta*45 Tab*0 Sig: Take 1 Tablet by mouth 2 times a day as needed for Pain, Severe. No driving on this medication. Ongoing. * Telephone Encounter - Belén Ayoub [facility] - 09/23/2023 8:57 AM EST I have reviewed the patients controlled substance dispensing history in the Prescription Drug Monitoring Program in compliance with the [facility] regulations before prescribing a controlled substance. PDMP checked on 09/23/2023. Pending Prescriptions: Disp Refills oxyCODONE-Acetaminophen 7.5-325 MG Oral T*45 Tab*0 Sig: Take 1 Tablet by mouth 2 times a day as needed for Pain, Severe. No driving on this medication. Ongoing. Last Visit: 06/23/2023 (in office), Visit date not found (telemedicine) Next Visit: 10/25/2023 Date medication was last filled: 09/03/23 Date medication is due for refill: 09/24/23 [facility]acy: [id number] [place] Is this request for a controlled substance? [...] CUTOFF CONCENTRATION Please approve if appropriate. Thanks, Belén Ayoub Clinical Pharmacist Centralized Clinical Pharmacy Services (CCPS) (Formerly Telepharmacy) [phone] 09/23/2023, 8:57 AM documented in this encounter Plan of Treatment Upcoming Encounters Date Type Department Care Team (Late st Contact Info) Description 10/25/2023 2:40 PM EDT Office Visit Family [facility] [address] [place] [address] Bob Kaplan, Edmundo Chin, [address] [place] [address] 11/10/2023 4:00 PM EDT Appointment Radiology, [facility] [address] [facility] [place] [address] 01/13/2024 8:40 AM EDT Office Visit Neurology, [facility] [place] [address] [place] [address] Misa Olson MD [address] [place] [address] Health Maintenance Due Date Last Done Comments Hepatitis C Screening 10/19/1993 Hepatitis B (1 of 3 - 19+ 3-dose series) 10/19/1994 HPV/Co-Test 10/19/2005 Colonoscopy 10/19/2020 Fecal Occult Blood Test 10/19/2020 Sigmoidoscopy 10/19/2020 COVID-19 Vaccine ( season) 2023 05/17/2021 Influenza Vaccine (FLU shot) [...] the patient have Health Care Power of Bellhop Captain? No Care Teams Foundry Manager Relationship Specialty Start Date End Date Edmundo Rojas Jr., DO [address] [place], [place] [address]ist Services [place] [address] PCP - General Family Medicine 09/15/11 documented as of this encounter
--- OUTSIDE RECORDS SUMMARY | 2024-01-07 14:09 | External Medical Summary | Summary of Care ---
Author Name Unknown Organization [facility] Address [address] [place] [address] Phone [phone] Care Team Providers Care Inspector Soldering Name Role Phone Bob Kaplan DO, David Vincent Primary Care Provid er Reason for Visit * Reason Onset Date Comments Medication Refill 09/01/2023 Encounter Details Date Type Department Care Team (Late st Contact Info) Description 09/01/2023 Refill [facility] [address] [place] [address] Betzaida Rojas Jr., DO [address] [place] [phone] MEDICATION USE AGREEMENT; Failed back surgical syndrome; DDD (degenerative disc disease), lumbar; DDD (degenerative disc disease), cervical Allergies Active Allergy Reactions Criticality Noted Date Comments Oxaprozin Muscle pain,Tachycardia High 03/24/2017 Other reaction(s): Myalgia, Other See Comments Other reaction(s): Tachycardia documented as of this encounter (statuses as of 09/03/2023) Medications Medication Sig Dispensed Refills Start Date [...] this medication. Ongoing. 45 Tablet 0 09/03/2023 Active oxyCODONE-Acetamin ophen 7.5-325 MG Oral TabletIndications: MEDICATION USE AGREEMENT,Failed back surgical syndrome,DDD (degenerative disc disease), lumbar,DDD (degenerative disc disease), cervical Take 1 Tablet by mouth 2 times a day as needed for Pain, Severe. No driving on this medication. Ongoing. 45 Tablet 0 08/11/2023 Discontinue d(Refill) documented as of this encounter (statuses as of 09/03/2023) Active Problems Problem Noted Date Diagnosed Date [...] as of this encounter (statuses as of 09/03/2023) Resolved Problems Problem Noted Date Diagnosed Date Resolved Date Sepsis 11/30/2014 12/01/2016 Pyelonephritis 11/30/2014 12/01/2016 Outbursts of anger 07/06/2014 Pelvic pain in female 12/05/20132016 Tobacco use disorder 09/15/2011 016 documented as of this encounter (statuses as of 09/03/2023) Immunizations Name Administration Dates Next Due Covid-19 [...] Encounter - Betzaida Rojas Jr., DO - 09/03/2023 7:04 AM EST Signed Prescriptions: Disp Refills oxyCODONE-Acetaminophen 7.5-325 MG Oral Ta*45 Tab*0 Sig: Take 1 Tablet by mouth 2 times a day as needed for Pain, Severe. No driving on this medication. Ongoing. Authorizing Provider: BETZAIDA ROJAS JR * Telephone Encounter - Bob Kaplan, Betzaida Chin, DO - 09/03/2023 7:03 AM EST I have reviewed the patients controlled substance dispensing history in the Prescription Drug Monitoring Program in compliance with the [facility] regulations before prescribing a controlled substance. Last [...] REQUEST. CUTOFF CONCENTRATION * Telephone Encounter - Carmel Laureano [facility] - 09/02/2023 4:43 AM ESTPending Prescriptions: Disp Refills oxyCODONE-Acetaminophen 7.5-325 MG Oral Ta*45 Tab*0 Sig: Take 1 Tablet by mouth 2 times a day as needed for Pain, Severe. No driving on this medication. Ongoing. * Telephone Encounter - Carmel Laureano [facility] - 09/02/2023 4:43 AM EST I have reviewed the patients controlled substance dispensing history in the Prescription Drug Monitoring Program in compliance with the [facility] regulations before prescribing a controlled substance. PDMP checked on 09/02/2023. Pending Prescriptions: Disp Refills oxyCODONE-Acetaminophen 7.5-325 MG Oral T*45 Tab*0 Sig: Take 1 Tablet by mouth 2 times a day as needed for Pain, Severe. No driving on this medication. Ongoing. Last Visit: 06/23/2023 (in office), Visit date not found (telemedicine) Next Visit: 10/25/2023 Date medication was last filled: 08/13/23 Date medication is due for refill: 09/03/23 Pharmacy: [id number] Is this [...] CUTOFF CONCENTRATION Please approve if appropriate. Thank You, Carmel Laureano [facility] Clinical Pharmacist Centralized Clinical Pharmacy Services (CCPS) (formerly Telepharmacy) [phone] 09/02/2023, 4:43 AM documented in this encounter Plan of Treatment Upcoming Encounters Date Type Department Care Team (Late st Contact Info) Description 10/25/2023 2:40 PM EDT Office Visit [facility] [address] [place] [phone] Betzaida Rojas Jr., DO [address] [place] [address] 11/10/2023 4:00 PM EDT Appointment Radiology, [facility] [address] [place] [phone] 01/13/2024 8:40 AM EDT Office Visit Neurology, Amauri Diaz [address] [place] [address] Misa Olson MD [address] [place] [address] Health Maintenance Due Date Last Done [...] the patient have Health Care Power of Advanced Quality Engineer? No Care Teams Inspector Soldering Relationship Specialty Start Date End Date Betzaida Rojas Jr., DO [address] [place] [address] [place] [address] PCP - General Family Medicine 09/15/11 documented as of this encounter
--- OUTSIDE RECORDS SUMMARY | 2024-01-07 14:09 | External Medical Summary | Summary of Care ---
Author Name Unknown Organization [facility] Address [address] [place] [address] Phone [phone] Care Team Providers Care Dressage Judge Name Role Phone Bob Kaplan DO, David Vincent Primary Care Provid er Reason for Visit * Reason Comments Follow Up Encounter Details Date Type Department Care Team (Late st Contact Info) Description 10/29/2023 2:00 PM EDT Office Visit [facility] [address] [place] [address] Edmundo Rojas Jr., DO [address] [place] [address] HTN, goal below 140/90*; Vitamin D deficiency; Drug abuse in remission (HCC); MEDICATION USE AGREEMENT; Failed back surgical syndrome; DDD (degenerative disc disease), lumbar; DDD (degenerative disc disease), cervical; Other migraine with status migrainosus, intractable Allergies Active Allergy Reactions Criticality Noted Date Comments Oxaprozin Muscle pain,Tachycardia High 03/24/2017 Other reaction(s): Myalgia, Other See Comments Other reaction(s): Tachycardia documented as of this encounter (statuses as of 10/29/2023) Medications Medication Sig Dispensed Refills Start Date [...] on this medication. Ongoing. 90 Tablet 0 10/29/2023 Active Omeprazole 20 MG Oral Capsule Delayed Release (PriLOSEC) TAKE TWO CAPSULES BY MOUTH ONCE DAILY 180 Capsule 3 02/10/2022 4 Discontinue d(Refill) oxyCODONE-Acetamin ophen 7.5-325 MG Oral TabletIndications: MEDICATION USE AGREEMENT,Failed back surgical syndrome,DDD (degenerative disc disease), lumbar,DDD (degenerative disc disease), cervical Take 1 Tablet by mouth 2 times a day as needed for Pain, Severe. No driving on this medication. Ongoing. 45 Tablet 0 10/13/2023 4 Discontinue d(Refill) Hospital, Clinic, or Other Facility Administered Medication Ordered Dose Route Frequency Start Date End Date Status ketorolac (Toradol) 60 MG/2ML IM inj 60 mgIndications:Other migraine with status migrainosus, intractable 60 mg IM ONCE 10/29/2023 10/29/2023 Ended documented as of this encounter (statuses as of 10/29/2023) Active Problems Problem Noted Date Diagnosed Date Vitamin D deficiency 10/19/2022 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 MEDICATION USE AGREEMENT 03/12/2015 Overview: Updated 08/23/18 Edmundo Rojas Jr, DO [facility] [place]ott DDD (degenerative disc disease), cervical 2014 Overview: [...] as of this encounter (statuses as of 10/29/2023) Resolved Problems Problem Noted Date Diagnosed Date Resolved Date Sepsis 11/30/2014 12/01/2016 Pyelonephritis 11/30/2014 12/01/2016 Outbursts of anger 07/06/2014 Pelvic pain in female 12/05/20132016 Tobacco use disorder 09/15/2011 016 documented as of this encounter (statuses as of 10/29/2023) Immunizations Name Administration Dates Next Due Covid-19 [...] Sign Reading Time Taken Comments Blood Pressure 124/94 10/29/2023 1:58 PM EDT Pulse 76 10/29/2023 1:58 PM EDT Temperature 36.9 C (98.5 F) 10/29/2023 1:58 PM ED T Respiratory Rate 14 10/29/2023 1:58 PM EDT Oxygen Saturation 100% 10/29/2023 1:58 PM EDT Inhaled Oxygen Concentration - - Weight 79.7 kg (175 lb 12.8 oz) 10/29/2023 1:58 PM EDT Height 152.4 cm (5') 10/29/2023 1:58 PM EDT Body Mass Index 34.33 10/29/2023 1:58 PM EDT documented in this encounter Functional [...] as of this encounter Progress Notes * Bob Kaplan, Edmundo Chin, DO - 10/29/2023 2:20 PM EDT Subjective: Cary Salazar is a 48 year old female. Chief Complaint Patient presents with Follow Up HPI: Patient presents today for 4 month follow up. Overall having more LBP- had for years, but feeling worse. Medication does not last at BID dosing. In addition having migraine. Started yesterday, took Relpax but did not help. DBP slightly elevated, will monitor, likely from pain from aforementioned issues. No other new complaints. 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 90 Tablet 3 Eletriptan Hydrobromide 40 MG Oral Tablet (Relpax) 1 at onset of migraine may repeat in 2 hours max2 doses in 24 hours 10 Tablet 5 Omeprazole 20 MG Oral Capsule Delayed Release (PriLOSEC) TAKE TWO CAPSULES BY MOUTH ONCE DAILY 180 Capsule 3 oxyCODONE-Acetaminophen 7.5-325 MG Oral Tablet Take 1 Tablet by mouth every 8 hours as needed for Pain, Severe. No driving on this medication. Ongoing. 90 Tablet 0 Current Facility-Administered Medications Medication Dose Route Frequency Provider Last Rate Last Admin ketorolac (Toradol) 60 MG/2ML IM inj 60 mg 60 mg Intramuscular Once Edmundo Rojas Jr., DO Past Medical History: Diagnosis Date Anxiety and [...] performed by Taiwo Nichole MD at ENDOSCOPY [facility] LAPAROSCOPY; CHOLECYSTECTOMY N/A 01/08/2022 ROBOTIC LAPAROSCOPIC CHOLECYSTECTOMY performed by Thiago Del Real MD at OR [facility] LAPAROSCOPY;APPENDECTOMY 01/10/2014 OTHER Right 01/2021 repair ijury to arm REDUCTION OF BREAST Bilateral 06/02/2016 REDUCTION MAMMOPLASTY performed by Benjie Mims MD at OR [facility] REMOVE PELVIS CONTENTS FOR TUMOR 01/10/2014 removed one ovary and part of other ovary SPINAL FUSION, LUMBAR, COMBINED 08/19/2013 L5 S1 Family History Problem Relation Age of Onset Cancer Mother Heart Disorder [...] heat intol/ 3 p's): Negative Neuro (shaking/weak/fatigu/parasthesi/): see above hpi Skin (rash/easy bruis/xerosis): Negative (nocturia/hesit/drib/sexual review): Negative Objective: BP 124/94 | Pulse 76 | Temp 36.9 C (98.5 F) | Resp 14 | Ht 1.524 m (5') | Wt 79.7 kg (175 lb 12.8 oz) | SpO2 100% | BMI 34.33 kg/m | BSA 1.84 m Physical Exam: General: alert, healthy, no distress Head: Normocephalic, No masses, lesions, tenderness or abnormalities Ears: External ears normal, Canals clear, TM's [...] rashes or significant lesions ASSESSMENT: ICD-10-CM 1. HTN, goal below 140/90 I10 2. Vitamin D deficiency E55.9 3. Drug abuse in remission (HCC) F19.11 4. MEDICATION USE AGREEMENT [id number] 5. 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 DDD (degenerative disc disease), lumbar M51.36 7. DDD (degenerative disc disease), cervical M50.30 8. Other migraine with status migrainosus, intractable G43.811 PLAN: (I10) HTN, goal below 140/90 (primary encounter diagnosis) Plan: As above. In pain today, if not improving on recheck, adjust meds. (E55.9) Vitamin D deficiency Plan: Will recheck labs and treat accordingly (F19.11) Drug abuse in remission (HCC) ([id number]) MEDICATION USE AGREEMENT (M96.1) Failed back surgical syndrome (M51.36) DDD (degenerative disc disease), lumbar (M50.30) DDD (degenerative disc disease), cervical Plan: oxyCODONE-Acetaminophen 7.5-325 MG Oral Tablet Was on higher dosing in past, but lowered due to insurance issues. Insurance no longer covering Rx.Check imaging and treat accordingly. If stable, will increase to TID PRN. Base treatment of upcoming imaging. (G43.811) Other migraine with status migrainosus, intractable Plan: ketorolac (Toradol) 60 MG/2ML IM inj 60 mg Will give Toradol shot today. If not improving, follow up with Neurologist. Follow Up: Return in about 4 months (around 02/28/2024), or if symptoms worsen or fail to improve. Return to the office as ordered. Return sooner if having any other problems or concerns. Edmundo Rojas Jr, DO documented in this encounter Nursing Notes * Gauri Lloyd LPN - 10/29/2023 2:25 PM EDT Pre-Administration Time Out Procedure Performed: Yes Patient Identified (Ask Name/Date of ): Yes Does the patient have a fever greater than 101 degrees today? No Patient allergic to latex? No Has the patient ever fainted after receiving an injection? No VFC Stock: No Injection(s) verified: Yes, Injection Name: Toradol Verified Side and Site: Yes Verified Shot(s) with Parent(s)/Patient: Yes documented in this encounter Plan of Treatment Upcoming Encounters Date Type Department Care Team (Late st Contact Info) Description 11/10/2023 4:00 PM EDT Appointment Radiology, [address] [place] [phone] 01/13/2024 8:40 AM EDT Office Visit Neurology, [place] [address] [place] [address] Misa Olson MD [address] [place] [address] 03/10/2024 2:00 PM EDT Office Visit [facility] [address] [place] [address] Edmundo Rojas Jr., DO [address] [place] [phone] Pending Results Name Type Priority Associated Diagnoses Date /Time XR L SPINE AP AND LATERAL Medical Imaging Routine MEDICATION USE AGREEMENT Failed back surgical syndrome DDD (degenerative disc disease), lumbar 10/29/2023 2:54 PM EDT Health Maintenance Due Date Last [...] encounter Visit Diagnoses Diagnosis HTN, goal below 140/90- Primary Unspecified essential hypertension Vitamin D deficiency Unspecified vitamin D deficiency Drug abuse in remission (HCC) Other, mixed, or unspecified nondependent drug abuse, in remission MEDICATION USE AGREEMENT Failed back surgical syndrome Other unspecified back disorder DDD (degenerative disc disease), lumbar Degeneration of lumbar or lumbosacral intervertebral disc DDD (degenerative disc disease), cervical Degeneration of cervical intervertebral disc Other migraine with status migrainosus, intractable documented in this encounter Administered Medications Inactive Administered Medications - up to 3 most recent administrations Medication Order MAR Action Action Date Dose Rate Site ketorolac (Toradol) 60 MG/2ML IM inj 60 mg 60 mg, Intramuscular, ONCE, On Wed10/29/23 at 1445, For 1 dose Given 10/29/2023 2:24 PM EDT 60 mg Dorsogluteal Right documented in this encounter Advance Directives Latest [...] the patient have Health Care Power of Clinical Research Nurse? No Care Teams Dressage Judge Relationship Specialty Start Date End Date Edmundo Rojas Jr., DO [address] [facility] [place] [address] PCP - General Family Medicine 09/15/11 documented as of this encounter"
--- OUTSIDE RECORDS SUMMARY | 2024-01-07 14:10 | External Medical Summary | Summary of Care ---
Author Name Unknown Organization [facility] Address [address] [place] [address] Phone [phone] Care Team Providers Care Nipple Machine Operator Name Role Phone Bob Kaplan DO, David Vincent Primary Care Provid er Reason for Visit * Reason Comments EMG Encounter Details Date Type Department Care Team ([facility] st Contact Info) Description 08/03/2023 8:40 AM EST NeuroDiagnostic Study Neurophysiology [facility] [address] [place] [address] Melania Espinal MD [address] [place] [address] Arrived Allergies Active Allergy Reactions Criticality Noted Date Comments Oxaprozin Muscle pain,Tachycardia High 03/24/2017 Other reaction(s): Myalgia, Other See Comments Other reaction(s): Tachycardia documented as of this encounter (statuses as of 08/03/2023) Medications Medication Sig Dispensed Refills Start Date [...] 24 hours 10 Tablet 5 05/25/2023 Active oxyCODONE-Acetaminop hen 7.5-325 MG Oral TabletIndications:ME DICATION USE AGREEMENT,Failed back surgical syndrome,DDD (degenerative disc disease), lumbar,DDD (degenerative disc disease), cervical Take 1 Tablet by mouth 2 times a day as needed for Pain, Severe. No driving on this medication. Ongoing. 45 Tablet 0 07/21/2023 Active PARoxetine HCl 10 MG Oral Tablet (Paxil)Indications:S ymptomatic menopausal or female climacteric states Take 1 Tablet by mouth in the morning. 90 Tablet 3 07/30/2023 Active documented as of this encounter (statuses as of 08/03/2023) Active Problems Problem Noted Date Diagnosed Date [...] as of this encounter (statuses as of 08/03/2023) Resolved Problems Problem Noted Date Diagnosed Date Resolved Date Sepsis 11/30/2014 12/01/2016 Pyelonephritis 11/30/2014 12/01/2016 Outbursts of anger 07/06/2014 Pelvic pain in female 12/05/20132016 Tobacco use disorder 09/15/2011 016 documented as of this encounter (statuses as of 08/03/2023) Immunizations Name Administration Dates Next Due Covid-19 [...] as of this encounter Progress Notes * Melania Espinal MD - 08/03/2023 9:[address] [facility] Neurophysiology Department [facility] Test Date: 08/03/2023 Patient: Cary Salazar : 1975 Physician: Melania Espinal MD Sex: Female Height: 5' 1" Ref Phys: Edmundo Rojas DO ID#: [id number] Weight: 173 lbs. Fire Supervisor: Jackson Sabillon Patient Complaints: numbness r foot since apr 2023.. LBP nonrad. Hx of lumbar spine surg 2013 with radic pain to LLE. No diabetic Patient History / Exam: full le stregnth, high arched feet, decreased lt ankle jerk, intact bl LT Impression: this is a normal nerve conduction EMG of the right lower extremity failing to reveal evidence of a sensory or motor polyneuropathy focal neuropathy or right lumbosacral radiculopathy NCV & EMG Findings: The right peroneal and posterior tibial motor responses are normal. The right sural sensory response is normal. EMG of selected musculature of the right lower extremity is normal Melania Espinal MD NCS+ Motor Nerve Results Latency Amplitude Segment Distance Velocity Min F-Lat Temperature Site (ms) Norm (mV) Norm cm m/s Norm (ms) Norm (C) Right Fibular (with F) Ankle 4.1 < 6.7 9.2 > 2.0 Ankle-EDB 8.5 41.9 < 58.0 - Bel Fib Head 8.9 - 8.4 - Bel Fib Head-Ankle 26 54 > 41 - Pop Fossa 10.7 - 8.4 - Pop Fossa-Ankle 36 55 - - Pop Fossa-Bel Fib Head 10 56 - Right Tibial (with F) Ankle 3.7 < 6.2 15.7 > 4.0 Ankle-AHB 8 - Pop Fossa 10.7 - 8.0 - Pop Fossa-Ankle 36 51 > 41 - Motor Segments Delta-O Distance CV Segment (ms) (cm) (m/s) Norm Right Fibular (with F) Ankle-EDB 8.5 Bel Fib Head-Ankle 4.8 26 54 > 41 Pop Fossa-Ankle 6.6 36 55 - Pop Fossa-Bel Fib Head 1.80 10 56 - Right Tibial (with F) Ankle-AHB 8 Pop Fossa-Ankle 7.0 36 51 > 41 Sensory Nerve Results Latency (Peak) Amplitude ( O-P ) Segment Distance Temperature Site (ms) Norm (V) Norm (cm) (C) Right Sural Sensory Calf-Lat Mall 3.9 < 4.6 11 > 6 Calf-Lat Mall 14 - EMG+ Side Muscle Root Ins Act Fibs Fasic Others Poly Dur Amp Recrt Activation Commt Left Vastus Lat L2-L4 NL 0 0 None 0 NL NL NL NL Left Tib Anterior L4-L5 NL 0 0 None 0 NL NL NL NL Left Gluteus Med L5-S1 NL 0 0 None 0 NL NL NL NL Left Gastroc LH S1-S2 NL 0 0 None 0 NL NL NL NL Left Biceps Fem LH L5-S2 NL 0 0 None 0 NL NL NL NL Right AHB S1-S2 NL 0 0 None 0 NL NL NL NL documented in this encounter Plan of Treatment Upcoming Encounters Date Type Department Care Team (Late st Contact Info) Description 10/25/2023 2:40 PM EDT Office Visit [facility] [address] [place] [address] Bob Kaplan, Edmundo Chin, DO [address] [place] [address] 11/10/2023 4:00 PM EDT Appointment Radiology, [facility] [address] [place] [phone] 01/13/2024 8:40 AM EDT Office Visit Neurology, [facility] [address] [facility] [address] Misa Olson MD [address] [facility] [place] [phone] Health Maintenance Due Date Last Done Comments [...] as of this encounter Visit Diagnoses Diagnosis Numbness and tingling of foot- Primary Disturbance of skin sensation documented in this encounter Advance Directives Latest [...] the patient have Health Care Power of Wad Blanking Press Adjuster? No Care Teams Nipple Machine Operator Relationship Specialty Start Date End Date Edmundo Rojas Jr., DO [address] [place] [address] Services [place] [address] PCP - General Family Medicine 09/15/11 documented as of this encounter
--- OUTSIDE RECORDS SUMMARY | 2024-01-07 14:10 | External Medical Summary | Summary of Care ---
Author Name Unknown Organization [facility] Address [address] [place] [address] Phone [phone] Care Team Providers Care Commercial Energy Rater Name Role Phone Bob Kaplan DO, David Vincent Primary Care Provid er Encounter Details Date Type Department Care Team (Late st Contact Info) Description 08/06/[address] [facility] [address] [place] [phone] Edmundo Rojas Jr., DO [address] [place] [phone] Allergies Active Allergy Reactions Criticality Noted Date Comments Oxaprozin Muscle pain,Tachycardia High 03/24/2017 Other reaction(s): Myalgia, Other See Comments Other reaction(s): Tachycardia documented as of this encounter (statuses as of 08/06/2023) Medications Medication Sig Dispensed Refills Start Date [...] as of this encounter (statuses as of 08/06/2023) Active Problems Problem Noted Date Diagnosed Date [...] as of this encounter (statuses as of 08/06/2023) Resolved Problems Problem Noted Date Diagnosed Date Resolved Date Sepsis 11/30/2014 12/01/2016 Pyelonephritis 11/30/2014 12/01/2016 Outbursts of anger 07/06/2014 Pelvic pain in female 12/05/20132016 Tobacco use disorder 09/15/2011 016 documented as of this encounter (statuses as of 08/06/2023) Immunizations Name Administration Dates Next Due Covid-19 [...] encounter Miscellaneous Notes * Telephone Encounter - Cami Lopes LPN - 08/06/2023 11:28 AM EST Patient informed of her results. She states her understanding * Telephone Encounter - Edmundo Rojas Jr., DO - 08/06/2023 8:28 AM EST EMG report shows normal. No signs of pinch nerves or nerve damage. Please inform the patient. documented in this encounter Plan of Treatment Upcoming Encounters Date Type Department Care Team (Late st Contact Info) Description 10/25/2023 2:40 PM EDT Office Visit [facility] [address] [place] [phone] Edmundo Rojas Jr., DO [address] [place] [address] 11/10/2023 4:00 PM EDT [address], [address] [phone] 01/13/2024 8:40 AM EDT Office Visit Neurology, [facility] [address] [place] [address] Misa Olson MD [address] [facility] [place] [address] Health Maintenance Due Date Last Done Comments [...] the patient have Health Care Power of Cloth Finishing Range Operator Chief? No Care Teams Commercial Energy Rater Relationship Specialty Start Date End Date Edmundo Rojas Jr., DO [address] [place] [address] [place] [address] PCP - General Family Medicine 09/15/11 documented as of this encounter
--- OUTSIDE RECORDS SUMMARY | 2024-01-07 14:10 | External Medical Summary | Summary of Care ---
Author Name Unknown Organization [facility] Address [address] [place] [address] Phone [phone] Care Team Providers Care Steno Typist Name Role Phone Bob Kaplan DO, David Vincent Primary Care Provid er Reason for Visit * Reason Comments Bobbin Marker Return Annual Encounter Details Date Type Department Care Team (Late st Contact Info) Description 07/30/2023 4:30 PM EST Office Visit Gynecology/[facility]st[facility] [address] [place], [place] [phone] Lindsey Burnett PA-C [address] [place], [place] [phone] Encounter for gynecological examination without abnormal finding*; Symptomatic menopausal or female climacteric states; Encounter for screening mammogram for breast cancer Allergies Active Allergy Reactions Criticality Noted Date Comments Oxaprozin Muscle pain,Tachycardia High 03/24/2017 Other reaction(s): Myalgia, Other See Comments Other reaction(s): Tachycardia documented as of this encounter (statuses as of 07/30/2023) Medications Medication Sig Dispensed Refills Start Date [...] as of this encounter (statuses as of 07/30/2023) Active Problems Problem Noted Date Diagnosed Date [...] as of this encounter (statuses as of 07/30/2023) Resolved Problems Problem Noted Date Diagnosed Date Resolved Date Sepsis 11/30/2014 12/01/2016 Pyelonephritis 11/30/2014 12/01/2016 Outbursts of anger 07/06/2014 Pelvic pain in female 12/05/20132016 Tobacco use disorder 09/15/2011 016 documented as of this encounter (statuses as of 07/30/2023) Immunizations Name Administration Dates Next Due Covid-19 [...] Sign Reading Time Taken Comments Blood Pressure 124/78 07/30/2023 4:36 PM EST Pulse - - Temperature 37 C (98.6 F) 07/30/2023 4:36 PM EST Respiratory Rate - - Oxygen Saturation - - Inhaled Oxygen Concentration - - Weight 78.7 kg (173 lb 9.6 oz) 07/30/2023 4:36 P M EST Height - - Body Mass Index 33.9 06/23/2023 5:30 PM EST documented in this encounter Functional Status Functional [...] as of this encounter Progress Notes * Lindsey Burnett PA-C - 07/30/2023 4:42 PM EST Cary Salazar [id number] CC: ANNUAL DIRECTOR OF OUTSIDE SALES EXAM HPI: The patient is a 47 year old female who presents for her annual strategy consultant exam. No LMP recorded. Patient has had an ablation. She endorses hot flashes throughout the day and waking up during the night to change her sheets (2 x ) and sleeping maybe 4 hours a night. She also reports increasing migraines in which she is scheduled to see her neurology appt in December. She reports no C/O's of strategy consultant, urinary, or colon problems. She does SBE, she denies new breast lumps or masses, no pain or discomfort, no nipple discharge. Her last mammogram : 10/16/22 with diagnostic mammogram of left breast, BIRADS2. S/p breast reduction in 2015 Last pap: 06/13/2021 NILM, neg HPV . She denies a hx of abnormal pap smears. She completed the cologard 12/2021 and was negative The patient is not currently sexually active Discussed with the patient about diet, exercise and calcium intake. Patient reports intake of Dairyproducts. Patient states that she eats healthy. Exercises: States she only the exercise associated with activities at work When she does exercise she will walk. ROS: Presently all other review of systems are negative. OB History Para Term AB Living 3 3 3 3 SAB IAB Ectopic Multiple Live Births # Outcome Date GA Lbr Luis/2nd Weight Sex Delivery Anes PTL Lv 3 Term 2 Term 1 Term Past Medical History: Diagnosis Date Anxiety and [...] performed by Taiwo Nichole MD at ENDOSCOPY [facility] LAP[facility]OSCOPY; CHOLECYSTECTOMY N/A 01/08/2022 ROBOTIC LAPAROSCOPIC CHOLECYSTECTOMY performed by Thiago Del Real MD at OR [facility] LAPAROSCOPY;APPENDECTOMY 01/10/2014 OTHER Right 01/2021 repair ijury to arm REDUCTION OF BREAST Bilateral 06/02/2016 REDUCTION MAMMOPLASTY performed by Benjie Mims MD at [facility] REMOVE PELVIS CONTENTS FOR TUMOR 01/10/2014 removed one ovary and part of other ovary SPINAL FUSION, LUMBAR, COMBINED 08/19/2013 L5 S1 Family History Problem Relation Age of Onset Cancer Mother Heart Disorder Father Breast Cancer Grandmother (Maternal) Other (heart disease) Other Diabetes Aunt (Maternal) Cancer Aunt (Maternal) Social History Tobacco Use Smoking status: Former Packs/day: 0.50 Years: 22.00 Additional pack years: 0.00 Total pack years: 11.00 Types: Cigarettes Quit date: 02/16/2021 Years since quittin.4 Smokeless tobacco: Never Tobacco comments: pt smoke a couple a week Substance Use Topics Alcohol use: Yes Alcohol/week: 0.8 standard drinks of alcohol Types: 1 Mixed drink(s) containing 1.5 shots of alcohol per week Comment: socially Vaping/E-Cigarette Use Vaping/E-Cigarette Use Never User Vaping/E-Cigarette Substances Flavoring Yes Vaping/E-Cigarette Devices Current Outpatient Medications Medication Sig Dispense Refill Omeprazole 20 MG Oral Capsule Delayed Release (PriLOSEC) TAKE TWO CAPSULES BY MOUTH ONCE DAILY 180 Capsule 3 Topiramate 50 MG Oral Tablet (topAMAX) TAKE ONE TABLET BY MOUTH IN THE MORNING AND AT BEDTIME 180 Tablet 1 busPIRone HCl 15 MG Oral Tablet (Buspar) TAKE 1 TABLET BY MOUTH IN THE MORNING, AT NOON, AND BEFOREBEDTIME as needed for anxiety 90 Tablet 5 Lisinopril-hydroCHLOROthiazide 20-12.5 MG Oral Tablet TAKE ONE PILL BY MOUTH ONCE A DAY 90 Tablet 3 Eletriptan Hydrobromide 40 MG Oral Tablet (Relpax) 1 at onset of migraine may repeat in 2 hours max2 doses in 24 hours 10 Tablet 5 oxyCODONE-Acetaminophen 7.5-325 MG Oral Tablet Take 1 Tablet by mouth 2 times a day as needed for Pain, Severe. No driving on this medication. Ongoing. 45 Tablet 0 Albuterol Sulfate HFA 108 (90 Base) MCG/ACT Inhalation Aerosol Solution Inhale 2 Puffs by mouth in the morning and 2 Puffs at noon and 2 Puffs in the evening and 2 Puffs before bedtime. 18 g 1 No current facility-administered medications for this visit. Review of patient's allergies indicates: Allergen Reactions Oxaprozin Muscle pain and Tachycardia Other reaction(s): Myalgia, Other See Comments Other reaction(s): Tachycardia PHYSICAL EXAM: Filed Vitals: 07/30/23 1636 BP: 124/78 Temp: 37 C (98.6 F) TempSrc: Tympanic Weight: 78.7 kg (173 lb 9.6 oz) Cosmetic Sales Consultant Documentation Provider requested fruit loader. Name of fruit loader: Raquel Alcantara CMA General: alert, pleasant, well nourished, afebrile, and in NAD HEENT: Sclera clear, EOMI Neck: supple, no adenopathy, thyroid normal size, non-tender, without nodularity Heart: regular rate & rhythm, no murmurs and no gallops Lungs: CTAB Abdomen: soft, non-tender, normo-active bowel sounds, no masses, no hepatosplenomegaly Breasts: Inspection negative, No nipple retraction or dimpling, No nipple discharge or bleeding, Noaxillary or supraclavicular adenopathy, Normal to palpation without dominant masses. Pelvic: pelvic exam declined by patient Neuro: no focal motor/sensory deficits, gait normal ASSESSMENT/PLAN: Patient is a 47 year old year old female evaluated for annual DIRECTOR OF OUTSIDE SALES exam Encounter for gynecological examination without abnormal finding (Primary) Symptomatic menopausal or female climacteric states - PARoxetine HCl 10 MG Oral Tablet (Paxil); Take 1 Tablet by mouth in the morning. - would not recommend estrogen due to risk with migraines and the fact that they are worsening. We discussed alternative therapy with amberen/estroven or bonafide. We discussed SSRI therapy : paxil or effexor, and Gabapentin. Patient desires to trial paxil. Reviewed risk , SE. Rx sent Encounter for screening mammogram for breast cancer - MAMMOGRAM SCREENING LUIS BILATERAL; Future; Expected date: 10/18/2023 Recommendations: -Discussed pap smear guidelines and recommended patient be screened every five years with HPV cotesting, due 2025 -Encouraged regular breast self-awareness, monthly SBE. Encouraged annual mammograms. Order placed and patient to schedule. -The importance of Calcium and Vitamin D was discussed. She was reminded to get 1200mg of Calcium aday and 800 IU of Vit. D either through dietary sources or through a supplement. -Recommended 30-45 min/day of CV exercise 3-7 days per week Follow Up: Return in about 3 months (around 10/29/2023) for BRETT menopause check. | For: BILLIL menopause check RTO in 1 year for routine DIRECTOR OF OUTSIDE SALES exam, PRN with concern Lindsey Burnett PA-C 07/30/2023 documented in this encounter Nursing Notes * Alesha Alcantara CMA - 07/30/2023 4:31 PM EST Chief Complaint Patient presents with Bobbin Marker Return Annual Patient identified Cary Salazar by name and date of . Patient here for yearly exam. Complaints: hot flashes- causing trouble sleeping. Making migraines worse Last pap: 06/13/2021 neg HPV neg Last Mammogram: 10/16/22 Last Dexa: n/a Last Colonoscopy: cologuard negative Type of Contraception: none Pt here for chlamydia screen. no My [facility] is a way you can talk to your provider online through e-mail. May I activate it for you? ALREADY ACTIVE Do you need any refills while you are here? no Alesha Alcantara CMA 07/30/2023 4:31 PM documented in this encounter Plan of Treatment Upcoming Encounters Date Type Department Care Team (Late st Contact Info) Description 08/03/2023 8:40 AM EST NeuroDiagnostic Study Neurophysiology [facility] [address] [facility] [place] [address] Melania Espinal MD [address] [facility] [place] [address] 10/25/2023 2:40 PM EDT Office Visit [facility] [address] [place] [phone] Edmundo Rojas Jr., DO [address] [place] [address] 01/13/2024 8:40 AM EDT Office Visit [facility] [address] [place] [address] Misa Olson MD [address] [facility] [place] [address] Scheduled Orders Name Type Priority Associated Diagnoses Orde r Schedule MAMMOGRAM SCREENING LUIS BILATERAL Medical Imaging Routine Encounter for screening mammogram for breast cancer Expected: 10/18/2023, Expires: 08/30/2024 Health Maintenance Due Date Last Done Comments [...] this encounter Visit Diagnoses Diagnosis Encounter for gynecological examination without abnormal finding- Primary Routine gynecological examination Symptomatic menopausal or female climacteric states Encounter for screening mammogram for breast cancer [...] the patient have Health Care Power of Geriatric Aide? No Care Teams Steno Typist Relationship Specialty Start Date End Date Edmundo Rojas Jr., DO [address] [place] [address] Services [place], [place] [phone] PCP - General Family Medicine 09/15/11 documented as of this encounter"
--- OUTSIDE RECORDS SUMMARY | 2024-01-07 14:10 | External Medical Summary | Summary of Care ---
Author Name Unknown Organization [facility] Address [address] [place] [address] Phone [phone] Care Team Providers Care Museum Guide Name Role Phone Bob Kaplan DO, David Vincent Primary Care Provid er Reason for Visit * Reason Onset Date Comments Medication Refill 07/20/2023 Encounter Details Date Type Department Care Team (Late st Contact Info) Description 07/20/2023 Refill [facility] [address] [place] [address] Edmundo Rojas Jr., DO [address] [place] [phone] MEDICATION USE AGREEMENT; Failed back surgical syndrome; DDD (degenerative disc disease), lumbar; DDD (degenerative disc disease), cervical Allergies Active Allergy Reactions Criticality Noted Date Comments Oxaprozin Muscle pain,Tachycardia High 03/24/2017 Other reaction(s): Myalgia, Other See Comments Other reaction(s): Tachycardia documented as of this encounter (statuses as of 07/21/2023) Medications Medication Sig Dispensed Refills Start Date [...] 24 hours 10 Tablet 5 05/25/2023 Active oxyCODONE-Acetamin ophen 7.5-325 MG Oral TabletIndications: MEDICATION USE AGREEMENT,Failed back surgical syndrome,DDD (degenerative disc disease), lumbar,DDD (degenerative disc disease), cervical Take 1 Tablet by mouth 2 times a day as needed for Pain, Severe. No driving on this medication. Ongoing. 45 Tablet 0 07/21/2023 Active oxyCODONE-Acetamin ophen 7.5-325 MG Oral TabletIndications: MEDICATION USE AGREEMENT,Failed back surgical syndrome,DDD (degenerative disc disease), lumbar,DDD (degenerative disc disease), cervical Take 1 Tablet by mouth 2 times a day as needed for Pain, Severe. No driving on this medication. Ongoing. 45 Tablet 0 06/29/2023 4 Discontinue d(Refill) documented as of this encounter (statuses as of 07/21/2023) Active Problems Problem Noted Date Diagnosed Date [...] as of this encounter (statuses as of 07/21/2023) Resolved Problems Problem Noted Date Diagnosed Date Resolved Date Sepsis 11/30/2014 12/01/2016 Pyelonephritis 11/30/2014 12/01/2016 Outbursts of anger 07/06/2014 Pelvic pain in female 12/05/20132016 Tobacco use disorder 09/15/2011 016 documented as of this encounter (statuses as of 07/21/2023) Immunizations Name Administration Dates Next Due Covid-19 [...] Telephone Encounter - Олег Fraire PA-C - 07/21/2023 4:59 PM EST Signed Prescriptions: Disp Refills oxyCODONE-Acetaminophen 7.5-325 MG Oral Ta*45 Tab*0 Sig: Take 1 Tablet by mouth 2 times a day as needed for Pain, Severe. No driving on this medication. Ongoing. Authorizing Provider: ОЛЕГ FRAIRE * Telephone Encounter - Belén Ayoub [facility] - 07/21/2023 4:02 PM ESTPending Prescriptions: Disp Refills oxyCODONE-Acetaminophen 7.5-325 MG Oral Ta*45 Tab*0 Sig: Take 1 Tablet by mouth 2 times a day as needed for Pain, Severe. No driving on this medication. Ongoing. * Telephone Encounter - Belén Ayoub [facility] - 07/21/2023 4:01 PM EST I have reviewed the patients controlled substance dispensing history in the Prescription Drug Monitoring Program in compliance with the [facility] regulations before prescribing a controlled substance. PDMP checked on 07/21/2023. Pending Prescriptions: Disp Refills oxyCODONE-Acetaminophen 7.5-325 MG Oral T*45 Tab*0 Sig: Take 1 Tablet by mouth 2 times a day as needed for Pain, Severe. No driving on this medication. Ongoing. Last Visit: 06/23/2023 (in office), Visit date not found (telemedicine) Next Visit: 10/25/2023 Date medication was last filled: 07/03/23 Date medication is due for refill: 07/24/23 Pharmacy: [id number] [place] Is [...] REQUEST. CUTOFF CONCENTRATION Please approve if appropriate. ThanksBelén Clinical Pharmacist [facility] ([facility] ([facility] [employer]) [phone] 07/21/2023, 4:01 PM documented in this encounter Plan of Treatment Upcoming Encounters Date Type Department Care Team (Late st Contact Info) Description 07/30/2023 4:30 PM EST Office [facility] [address] [facility] [place] [facility] [address] Lindsey Burnett PA-C [address] [facility] [place], [place] [phone] 08/03/2023 8:40 AM EST NeuroDiagnostic Study Neurophysiology [facility] [address] [place] [address] Melania Espinal MD [address] [facility] [place] [phone] 10/25/2023 2:40 PM EDT Office Visit [facility] [address] [place] [address] Edmundo Rojas Jr., DO [address] [place] [phone] 01/13/2024 8:40 AM EDT Office Visit Neurology, Ama[facility] Diaz [address] [place] [address] Misa Olson MD [address], [place] [phone] Health Maintenance Due Date Last Done Comments [...] the patient have Health Care Power of Instrument Operator? No Care Teams Museum Guide Relationship Specialty Start Date End Date Edmundo Rojas Jr., DO [address] [facility] Services [place] [address] PCP - General Family Medicine 09/15/11 documented as of this encounter
--- NOTE | 2024-01-07 14:16 | Anesthesiology Progress Note ---
Date of Service January 07, 2024 Anesthesia Post Procedure Vital Signs Vital Signs: Temp Pulse Resp BP Pulse Ox O2 Del Method O2 Flow Rate 01/07/24 14:05 60 16 86/60 L 97 Oxymask 3 01/07/24 13:55 73 20 92/66 L 92 Oxymask 3 01/07/24 13:45 78 20 76/60 L 99 Oxymask 3 01/07/24 13:36 36.1 C L 78 11 L 91/50 L 99 Oxymask 5 01/07/24 09:54 36.7 C 75 20 100/77 96 Room Air Pain Intensity Back: Pain Intensity: 10 Transfer of Care Handoff Completed per policy Notes Mental Status: alert / awake / arousable Patient Amnestic to Procedure: Yes Nausea / Vomiting: adequately controlled Pain: adequately controlled Airway Patency, RR, SpO2: stable & adequate BP & HR: stable & adequate Hydration State: stable & adequate Anesthetic Complications: no major complications apparent
[2024-01-07] MEDS ORDERED: PROMETHAZINE HCL 12.5 MG in SODIUM CHLORIDE 0.9% 50 ML IV PRN (16:17)
[2024-01-07] MEDS ORDERED: SOD PHOSPHATE/SOD BIPHOSPHATE ENEMA 132 ML BTL PR PRN (16:17)
[2024-01-07] MEDS ORDERED: ALUMINUM/MAGNESIUM SUSP 30 ML UDC PO PRN (16:17)
[2024-01-07] MEDS ORDERED: bisacodyL 10 MG SUPP PR PRN (16:17)
[2024-01-07] MEDS ORDERED: hydrOXYzine HCl 25 MG TAB PO PRN (16:17)
[2024-01-07] MEDS ORDERED: FAMOTIDINE 20 MG TAB PO PRN (16:17)
[2024-01-07] MEDS ORDERED: DO NOT ADMINISTER PNEUMOCOCCAL VACCINE PRN (16:17)
[2024-01-07] MEDS ORDERED: LORazepam 0.5 MG TAB PO PRN (16:17)
[2024-01-07] MEDS ORDERED: METOCLOPRAMIDE HCL INJ 5 MG/ML 2 ML VIAL IV PRN (16:17)
[2024-01-07] MEDS ORDERED: ACETAMINOPHEN 500 MG TAB PO PRN (16:17)
[2024-01-07] MEDS ORDERED: DO NOT ADMINISTER FLU VACCINE PRN (16:17)
[2024-01-07] MEDS ORDERED: NALOXONE HCL 0.4 MG/1 ML VIAL/CARP IV PRN (16:17)
[2024-01-07] MEDS ORDERED: MAGNESIUM HYDROXIDE SUSP 30 ML UDC PO PRN (16:17)
[2024-01-07] MEDS ORDERED: diphenhydrAMINE Capsule 25 MG CAP PO PRN (16:17)
[2024-01-07] MEDS ORDERED: LORazepam 0.5 MG in SYRINGE 0.25 ML IV PRN (16:17)
[2024-01-07] MEDS ORDERED: ONDANSETRON 4 MG OD TAB PO PRN (16:17)
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
[2024-01-07] MEDS: LACTATED RINGER'S 1,000 ML IV SCH (18:05)
[2024-01-07] MEDS: oxyCODONE HCL IR 5 MG TAB (IMMEDIATE RELEASE) PO PRN (18:05)
[2024-01-07] MEDS: TOPIRAMATE 50 MG TAB PO SCH (20:28)
[2024-01-07] MEDS: DOCUSATE SODIUM/SENNA 50/8.6MG TAB PO SCH (20:29)
[2024-01-07] MEDS: ACETAMINOPHEN 1,000 MG/100 ML VIAL IV PRN (23:55)
--- OUTSIDE RECORDS SUMMARY | 2024-01-08 01:32 | External Medical Summary | Summary of Care ---
Author Name Unknown Organization [facility] Address [address] [place] [address] Phone [phone] Care Team Providers Care Metalizer Field Operation Name Role Phone Bob Kaplan DO, David Vincent Primary Care Provid er Reason for Visit * Reason Comments eRx-Medication Refill Encounter Details Date Type Department Care Team (Late st Contact Info) Description 01/03/2024 Refill [facility] [address] [place] [address] Betzaida Rojas Jr., DO [address] [place] [phone] HTN, goal below 140/90 Allergies Active Allergy [...] Office Visit [facility], [address] [facility] [place] [address] Misa Olson MD [address] [facility] [place] [address] 03/10/2024 2:00 PM EDT Office Visit Family Practice, [place] [address] [place] [phone] Bob Kaplan, Betzaida Chin DO [address] [place] [phone] 04/28/2024 9:30 AM EDT Office Visit Gynecology/Obstetrics, [place] [address] [facility] [place] [address] Lindsey Burnett PA-C [address] [place], [place] [phone] Health Maintenance Due Date Last Done Comments [...] Power of Attor patricia? No Care Teams Metalizer Field Operation Relationship Specialty Start Date End Date Betzaida Rojas Jr., DO [address] [place] [address] Services [place] [address] PCP - General Family Medicine 09/15/11 documented as of this encounter
--- OUTSIDE RECORDS SUMMARY | 2024-01-08 01:32 | External Medical Summary | Summary of Care ---
Author Name Unknown Organization [facility] Address [address] [place] [address] Phone [phone] Care Team Providers Care Mig Tig Welder Name Role Phone Bob Kaplan DO, David Vincent Primary Care Provid er Reason for Visit * Reason Onset Date Comments Information 01/07/2024 Encounter Details Date Type Department Care Team ([facility] st Contact Info) Description 01/07/2024 Telephone Neurology, [place] [address] [place], [place] [phone] Misa Olson MD [address] [place] [address] Information Allergies Active Allergy Reactions Criticality Noted Date Comments Oxaprozin Muscle pain,Tachycardia High 03/24/2017 Other reaction(s): Myalgia, Other See Comments Other reaction(s): Tachycardia documented as of this encounter (statuses as of 01/07/2024) Medications Medication Sig Dispensed Refills Start Date [...] this medication. Ongoing. 90 Tablet 12/27/2023 Active Lisinopril-hydroCHLO ROthiazide 20-12.5 MG Oral TabletIndications:HT N, goal below 140/90 TAKE 1 TABLET BY MOUTH DAILY 90 Tablet 3 01/04/2024 Active documented as of this encounter (statuses as of 01/07/2024) Active Problems Problem Noted Date Diagnosed Date [...] as of this encounter (statuses as of 01/07/2024) Resolved Problems Problem Noted Date Diagnosed Date Resolved Date Sepsis 11/30/2014 12/01/2016 Pyelonephritis 11/30/2014 12/01/2016 Outbursts of anger 07/06/2014 Pelvic pain in female 12/05/20132016 Tobacco use disorder 09/15/2011 016 documented as of this encounter (statuses as of 01/07/2024) Immunizations Name Administration Dates Next Due Covid-19 [...] encounter Miscellaneous Notes * Telephone Encounter - Maura Carrero MED ASSIST - 01/07/2024 10:56 AM EDT New Patient Questionnaire documented in this encounter Plan of Treatment Upcoming Encounters Date Type Department Care Team (Late st Contact Info) Description 01/13/2024 8:40 AM EDT Office Visit [facility] [address] [place] [address] [facility]ia Olson [facility] [address] [facility] [place] [address] 03/10/2024 2:00 PM EDT [facility] [address] [place] [address] Edmundo Rojas Jr., DO [address] [place] [place] [phone] 04/28/2024 9:30 AM EDT Office Visit Gynecology/Obstetrics, [place] [address] [place] [address] [address] Lindsey Burnett PA-C [address] [place] [address] [address] Health Maintenance Due Date Last Done Comments [...] Power of Attor patricia? No Care Teams Mig Tig Welder Relationship Specialty Start Date End Date Edmundo Rojas Jr., DO [address] [facility] Services [place], [place] [phone] PCP - General Family Medicine 09/15/11 documented as of this encounter
--- OUTSIDE RECORDS SUMMARY | 2024-01-08 01:32 | External Medical Summary | Summary of Care ---
Author Name Unknown Organization [facility] Address [address] [place] [address] Phone [phone] Care Team Providers Care Client Care Representative Name Role Phone Bob Kaplan DO, David Vincent Primary Care Provid er Reason for Referral * Medication Prior Authorization - Pending Review Specialty Diagnoses / Procedures Referred By Merrick t Referred To Contact Diagnoses MEDICATION USE AGREEMENT Failed back surgical syndrome DDD (degenerative disc disease), lumbar DDD (degenerative disc disease), cervical Олег Fraire PA-C [address] [place] [address] Referral ID Status Reason Start Date Expiration Date V isits Requested Visits Authorized [id number] Pending Review 999 999 Reason for Visit * Reason Onset Date Comments Medication Refill 12/24/2023 Encounter Details Date Type Department Care Team (Late st Contact Info) Description 12/24/2023 Refill [facility] [address] [place] [phone] Edmundo Rojas Jr., DO [address] [place] [address] MEDICATION USE AGREEMENT; Failed [...] sent to pharmacy Thank you, Magda Burton Construction Materials Tester I [facility]) 12/27/2023,10:19 AM * Telephone Encounter - Олег Fraire PA-C - 12/27/2023 10:06 AM EDT Signed Prescriptions: Disp Refills oxyCODONE-Acetaminophen 7.5-325 MG Oral Ta*90 Tab*0 Sig: Take 1 Tablet by mouth every 8 hours as needed for Pain, Severe. No driving on this medication. Ongoing. Authorizing Provider: ОЛЕГ FRAIRE * Telephone Encounter - Carmen Chadwick [facility] - 12/25/2023 8:10 AM EDTPending Prescriptions: Disp Refills oxyCODONE-Acetaminophen 7.5-325 MG Oral Ta*90 Tab*0 Sig: Take 1 Tablet by mouth every 8 hours as needed for Pain, Severe. No driving on this medication. Ongoing. * Telephone Encounter - Carmen Chadwick [facility] - 12/25/2023 8:09 AM EDT I have [...] medication is due for refill: 12/26 Pharmacy: [id number] Is this [...] Clinical Pharmacy Services ([facility]) 12/25/23 8:09 AM [phone] documented in this encounter Plan of Treatment Upcoming Encounters Date Type Department Care Team (Late st Contact Info) Description 01/13/2024 8:40 AM EDT Office Visit Neurology, [place] [address] [place] [address] Misa Olson MD [address] [facility] [place] [address] 03/10/2024 2:00 PM EDT Office Visit [facility] [address] [place] [address] Bob Kaplan, Edmundo Chin DO [address] [place] [address] 04/28/2024 9:30 AM EDT Office Visit Gynecology/Obstetrics, [place] [address] [place] [address] Lindsey Burnett, [place]-Jania [address] [place] [phone] Health Maintenance Due Date Last Done Comments [...] Power of Attor patricia? No Care Teams Client Care Representative Relationship Specialty Start Date End Date Edmundo Rojas Jr., DO [address] [place] [address] [phone] PCP - General Family Medicine 09/15/11 documented as of this encounter
--- OUTSIDE RECORDS SUMMARY | 2024-01-08 01:32 | External Medical Summary | Summary of Care ---
Author Name Unknown Organization [facility] Address [address] [place] [address] Phone [phone] Care Team Providers Care Tapering Machine Operator Name Role Phone Bob Kaplan DO, David Vincent Primary Care Provid er Reason for Visit * Reason Onset Date Comments Advice 12/29/2023 Encounter Details Date Type Department Care Team ([facility] st Contact Info) Description 12/29/2023 Telephone [facility] [address] [place] [phone] Edmundo Rojas Jr., DO [address] [place] [address] Advice Allergies Active Allergy [...] 8:27 AM EDT Maria Luisa concepcion from [facility] Anesthesiology Depart Patient has back surgery scheduled [...] Office Visit Neurology, [place] [address] [place] [address] Misa Olson MD [address] [facility] [place] [phone] 03/10/2024 2:00 PM EDT Office Visit [facility] [address] [place] [phone] Edmundo Rojas Jr., DO [address] [place] [phone] 04/28/2024 9:30 AM EDT Office Visit Gynecology/Obstetrics, [place] 400 [place] [address] Lindsey Burnett PA-C 400 [facility] [place], [place] [phone] Health Maintenance Due Date Last Done Comments [...] Power of Attor patricia? No Care Teams Tapering Machine Operator Relationship Specialty Start Date End Date Edmundo Rojas Jr., DO [address] [facility] Services [place], [place] [phone] PCP - General Family Medicine 09/15/11 documented as of this encounter
--- OUTSIDE RECORDS SUMMARY | 2024-01-08 01:32 | External Medical Summary | Summary of Care ---
Author Name Unknown Organization [facility] Address [address] [place] [address] Phone [phone] Care Team Providers Care Hide Dropper Name Role Phone Bob Kaplan DO, David Vincent Primary Care Provid er Reason for Referral * Medication Prior Authorization - Pending Review Specialty Diagnoses / Procedures Referred By Merrick t Referred To Contact Diagnoses MEDICATION USE AGREEMENT Failed back surgical syndrome DDD (degenerative disc disease), lumbar DDD (degenerative disc disease), cervical Олег Fraire PA-C [address] [place] [address] Referral ID Status Reason Start Date Expiration Date V isits Requested Visits Authorized [id number] Pending Review [phone] Reason for Visit * Reason Onset Date Comments Medication Refill 12/24/2023 Encounter Details Date Type Department Care Team (Late st Contact Info) Description 12/24/[address] [facility] [address] [place] [phone] Edmundo Rojas Jr., DO [address] [place] [address] MEDICATION USE AGREEMENT; Failed [...] sent to pharmacy Thank you, Magda Burton Diesel Engine Inspector I [facility]) 12/27/2023,10:19 AM * Telephone Encounter - Олег Fraire PA-C - 12/27/2023 10:06 AM EDT Signed Prescriptions: Disp Refills oxyCODONE-Acetaminophen 7.5-325 MG Oral Ta*90 Tab*0 Sig: Take 1 Tablet by mouth every 8 hours as needed for Pain, Severe. No driving on this medication. Ongoing. Authorizing Provider: ОЛЕГ FRAIRE * Telephone Encounter - Carmen Chadwick [facility] - 12/25/2023 8:10 AM EDTPending Prescriptions: Disp Refills oxyCODONE-Acetaminophen 7.5-325 MG Oral Ta*90 Tab*0 Sig: Take 1 Tablet by mouth every 8 hours as needed for Pain, Severe. No driving on this medication. Ongoing. * Telephone Encounter - Carmen Chadwick [facility] - 12/25/2023 8:09 AM EDT I have reviewed the patients controlled substance dispensing history in the Prescription Drug Monitoring Program in compliance with the [place] regulations before prescribing a controlled substance. PDMP [...] medication is due for refill: 12/26 Pharmacy: [id number] Is this [...] Clinical Pharmacy Services ([facility]) 12/25/23 8:09 AM [phone] documented in this encounter Plan of Treatment Upcoming Encounters Date Type Department Care Team (Late st Contact Info) Description 01/13/2024 8:40 AM EDT Office Visit Neurology, [place] [address] [place] [address] Misa Olson MD [address] [facility] [place] [address] 03/10/2024 2:00 PM EDT Office Visit [facility] [address] [place] [address] Bob Kaplan, Edmundo Chin DO [address] [place] [address] 04/28/2024 9:30 AM EDT Office Visit Gynecology/Obstetrics, [place] [address] [place] [address] Lindsey Burnett, IMEL[place]-Jania [address] [place] [phone] Health Maintenance Due Date Last Done Comments [...] Power of Attor patricia? No Care Teams Hide Dropper Relationship Specialty Start Date End Date Edmundo Rojas Jr., DO [address] [place] [address] [place] [address] PCP - General Family Medicine 09/15/11 documented as of this encounter
[2024-01-08] MEDS: POLYETHYLENE (MIRALAX) 17 GM PACK PO SCH (05:51)
--- NOTE | 2024-01-08 07:50 | Orthopedic Progress Note ---
Date of Service January 08, 2024 Assessment & Plan (1) Neurogenic claudication due to lumbar spinal stenosis: Plan: Cary is postoperative day 1 status post hardware removal L5-S1, decompression L4-5 with instrumented fusion L4-S1. Will start physical therapy today. Ambulate ad roselia. DVT prophylaxis is in the form of teds and SCDs. Continue with pain control. Work on aggressive bowel regimen. Anticipate discharge home within the next 24 to 48 hours. Admission and Anticipated Discharge Date Admission Date: January 07, 2024 Subjective Cary is postoperative day 1 status post hard removal L5-S1, decompression L4- 5 with instrumented fusion L4-S1. She had an uneventful evening. Radicular leg pain has resolved. Back pain is controlled. JAYLENE drain output last shift was 110 cc. She has been up and ambulatory around the hallways independently. Review of Systems Review of Systems: All systems reviewed & are unremarkable except as noted in HPI & below Physical Exam Physical Exam: She sitting up in bed alert and oriented x 3 no acute distress lumbar dressing is clean dry intact with functioning JAYLENE drain strength is intact bilateral lower extremities Results & Data Vital Signs (Past 12 Hours) Vital Signs Temp Pulse Resp BP Pulse Ox O2 Del Method 01/08/24 07:01 36.7 C 76 17 115/79 97 Room Air 01/08/24 02:44 36.4 C L 60 16 100/67 93 Room Air 01/07/24 23:00 36.6 C 83 18 116/79 98 Room Air
--- NOTE | 2024-01-08 08:29 | Hospitalist Progress Note ---
Date of Service January 08, 2024 Assessment & Plan (1) S/P spinal surgery: (2) Neurogenic claudication due to lumbar spinal stenosis: Plan: This is a 48 yo F with PMH of hypertension, vitamin D deficiency, migraine headache who is POD#0 s/p removal of posterior instrumentation L5-S1, lumbar decompression with bilateral medial facetectomies and foraminotomies L3-L4 L4-5 and posterior spinal fusion L4-[address] Castillo. S/p removal of posterior instrumentation L5-S1, lumbar decompression with bilateral medial facetectomies and foraminotomies L3-L4 L4-5 and posterior spinal fusion L4-[address] Castillo on 01/07/24 Per orthopedics for pain control, wound care, anticoagulation and activities Monitor H&H, continue incentive spirometry, PT/OT when appropriate Acute blood loss anemia, post-op vs dilutional pre-op hgb 14.5 -> now down to 11.4 - no need for blood transfusion at this time - monitor H&H (3) Hypertension: Plan: -hold lisinopril-hctz for now - monitor BP (4) Anxiety: Plan: Stable. Continue paroextine, Buspar PRN (5) Migraine: Plan: Continue topiramate BID, PRN eletriptan DVT Ppx: SCDs Code status: FULL PCP: Dr. Rojas Dispo: med/surg. Discharge per primary service. Thank you for this consultation. We will follow the patient with you during their hospital stay. You [facility] via [employer]. Admission and Anticipated Discharge Date Admission Date: January 07, 2024 Subjective Pt seen in med consult s/p L-spine surgery Currently sitting up in bed in NAD Reports post-surg. back pain when resting, feeling better when walking around voiding without difficulty, had a small BM No fever, chills, chest pain, shortness of breath. No abd. pain. Review of Systems Review of Systems: All systems reviewed & are unremarkable except as noted in Subjective Physical Exam Physical Exam: GENERAL: Alert and oriented x3. NAD, on RA. HEENT: NC/AT. PERRL. NECK: No JVD, no neck masses. HEART: S1 and S2 heard. Regular rate and rhythm. No murmur RESPIRATORY: Normal AP diameter. No accessory muscle use. No wheezing, no crackles. ABDOMEN: Soft, bowel sounds present, nontender, no distention. NEURO: Awake, alert, oriented. No facial droop. Answers appropriately. Obeys simple commands. Moves extremities. EXTREMITIES: No edema, no erythema seen. lower back w/ dressing c/d/i. JAYLENE drain w/ mod serosanguinous collection noted. Results & Data Results & Data Vital Signs (Past 12 Hours) Vital Signs Temp Pulse Resp BP Pulse Ox O2 Del Method 01/08/24 07:01 36.7 C 76 17 115/79 97 Room Air 01/08/24 02:44 36.4 C L 60 16 100/67 93 Room Air 01/07/24 23:00 36.6 C 83 18 116/79 98 Room Air Laboratory Results 01/08/24 Range/Units 07:23 WBC 12.44 H (4.8-10.8) K/ul RBC 3.43 L (4.20-5.40) M/uL Hgb 11.4 L (12.0-16.0) g/dl Hct 33.7 L (37.0-47.0) % MCV 98.3 (80.0-100.0) fL MCH 33.2 (25.0-34.0) pg MCHC 33.8 (32.0-36.0) g/dL RDW Std Deviation 39.1 (36.4-46.3) fL RDW Coeff of Radu 10.9 L (11.5-14.5) % Plt Count 225 (130-400) K/uL MPV 11.8 (9.4-12.4) fL Immature Gran % (Auto) 0.3 % Neut % (Auto) 79.4 % Lymph % (Auto) 14.1 % [place] % (Auto) 6.1 % Eos % (Auto) 0.0 % Baso % (Auto) 0.1 % Neut # (Auto) 9.88 H (1.40-6.50) K/uL Lymph # (Auto) 1.75 (1.20-3.40) K/uL [place] # (Auto) 0.76 H (0.11-0.59) K/uL Eos # (Auto) 0.00 (0.00-0.50) K/uL Baso # (Auto) 0.01 (0.00-0.20) K/uL Immature Gran # (Auto) 0.04 (0.01-0.20) K/uL Sodium 134 L (136-145) mmol/L Potassium 3.3 L (3.5-5.1) mmol/L Chloride 100 (98-107) mmol/L Carbon Dioxide 29 (21-32) mmol/L Anion Gap 5 (3-11) BUN 11 (6-23) mg/dl Creatinine 0.91 (0.6-1.2) mg/dl Est Cr Clr Drug Dosing 72.2 ml/min Est GFR ( Amer) 86.5 ml/min Est GFR (Non-Af Amer) 74.6 ml/min BUN/Creatinine Ratio 12.1 (10-20) Glucose 127 H (70-99(Fasting)) mg/dl Calcium 9.9 (8.6-10.3) mg/dl Medications Administered Current Inpatient Medications Acetaminophen (Acetaminophen 500 Mg Tab) 1,000 mg PO Q8H PRN PRN Reason: MILD Pain Scale 1,2,3 & Pre PT Stop: 02/06/24 16:16 Al Hydrox/Mg Hydrox/Simethicone (Aluminum/Magnesium Susp 30 Ml Udc) 30 ml PO Q6H PRN PRN Reason: Dyspepsia Stop: 02/06/24 16:16 Bisacodyl (Bisacodyl 10 Mg Supp) 10 mg [place] DAILY PRN PRN Reason: Constipation Stop: 02/06/24 16:16 Diphenhydramine HCl (Diphenhydramine Capsule 25 Mg Cap) 25 mg PO Q6H PRN PRN Reason: Allergic Rhinitis/Insomnia Stop: 02/06/24 16:16 Famotidine (Famotidine 20 Mg Tab) 20 mg PO Q12H PRN PRN Reason: Dyspepsia Stop: 02/06/24 16:16 Lisinopril/HCTZ (Lisinopril/Hctz 20/12.5mg 1 Tab Tab) 1 tab PO QAM ASUNCION Stop: 02/07/24 08:59 Hydromorphone HCl (Hydromorphone Inj 0.5 Mg/0.5 Ml Syr) 0.5 mg IV Q3H PRN PRN Reason: MODERATE Pain (Scale 4,5,6) & Pre PT Stop: 01/21/24 16:16 Hydromorphone HCl (Hydromorphone Inj 1 Mg/Ml Syringe) 1 mg IV Q3H PRN PRN Reason: SEVERE Pain (Scale 7,8,9,10) Stop: 01/21/24 16:16 Last Admin: 01/08/24 04:02 Dose: 1 mg Hydroxyzine HCl (Hydroxyzine Hcl 25 Mg Tab) 25 mg PO Q8H PRN PRN Reason: Anxiety Stop: 02/06/24 16:16 Lactated Ringer's (Lr) 1,000 mls @ 100 mls/hr IV .Q10H ASUNCION Stop: 02/06/24 16:16 Last Infusion: 01/08/24 05:49 Dose: Infused Promethazine HCl 12.5 mg/ (Sodium Chloride) 50.5 mls @ 202 mls/hr IV Q6H PRN PRN Reason: Nausea &/or Vomiting Stop: 02/06/24 16:16 Acetaminophen (Ofirmev) 1,000 mg in 100 mls @ 400 mls/hr IV Q8H PRN PRN Reason: Pain Rating 1-3 & Pre PT Stop: 01/08/24 16:18 Last Infusion: 01/08/24 00:32 Dose: Infused Lorazepam 0.5 mg/ Syringe 0.5 mls @ 2 mls/min IV Q8H PRN; Protocol PRN Reason: Sedation/Anxiety Stop: 02/06/24 16:16 Dexamethasone 6 mg/ Syringe 1.5 mls @ 1 mls/min IV DAILY ASUNCION Stop: 01/10/24 09:02 Influenza Virus Vaccine Quadrival (Do Not Administer Flu Vaccine) 1 each N/A PRN PRN PRN Reason: Notification Stop: 02/06/24 16:16 Lorazepam (Lorazepam 0.5 Mg Tab) 0.5 mg PO Q8H PRN PRN Reason: Sedation/Anxiety Stop: 02/06/24 16:16 Magnesium Hydroxide (Magnesium Hydroxide Susp 30 Ml Udc) 30 ml PO Q24H PRN PRN Reason: Constipation Stop: 02/06/24 16:16 Metoclopramide HCl (Metoclopramide Hcl Inj 5 Mg/Ml 2 Ml Vial) 10 mg IV Q6H PRN PRN Reason: Nausea &/or Vomiting Stop: 02/06/24 16:16 Miscellaneous (Eletriptan 40 Mg Tablet- Order Awaiting Action) 1 each N/A QS ASUNCION Stop: 02/07/24 00:00 Last Admin: 01/08/24 08:15 Dose: Not Given Naloxone HCl (Naloxone Hcl 0.4 Mg/1 Ml Vial/Carp) 0.1 mg IV Q5M PRN PRN Reason: Oversedation/Resp depression Stop: 02/06/24 16:16 Ondansetron HCl (Ondansetron Inj 2 Mg/Ml 2 Ml Vial) 4 mg IV Q6H PRN PRN Reason: Nausea &/or Vomiting Stop: 02/06/24 16:16 Ondansetron HCl (Ondansetron 4 Mg Od Tab) 4 mg PO Q6H PRN PRN Reason: Nausea Stop: 02/06/24 16:16 Oxycodone HCl (Oxycodone Hcl Ir 5 Mg Tab (Immediate Release)) 5 - 10 mg PO Q4H PRN PRN Reason: Pain & Pre PT Stop: 01/21/24 16:16 Last Admin: 01/08/24 05:50 Dose: 10 mg Pantoprazole Sodium (Pantoprazole 40 Mg Tab) 40 mg PO QAM ASUNCION Stop: 02/07/24 08:59 Paroxetine HCl (Paroxetine Hcl 10 Mg Tab) 10 mg PO DAILY [facility] Stop: 02/07/24 08:59 Pneumococcal Polyvalent Vaccine (Do Not Administer Pneumococcal Vaccine) 1 each N/A PRN PRN PRN Reason: Notification Stop: 02/06/24 16:16 Polyethylene Glycol (Polyethylene (Miralax) 17 Gm Pack) 17 gm PO Q6 ASUNCION Stop: 02/07/24 05:59 Last Admin: 01/08/24 05:51 Dose: 17 gm Senna/Docusate Sodium (Docusate Sodium/Senna 50/8.6mg Tab) 2 tab PO HS ASUNCION Stop: 02/06/24 20:59 Last Admin: 01/07/24 20:29 Dose: 2 tab Sodium Biphosphate/Sodium Phosphate (Sod Phosphate/Sod Biphosphate Enema 132 Ml Btl) 132 ml [place] ONE PRN PRN Reason: Constipation Stop: 02/06/24 16:16 Topiramate (Topiramate 50 Mg Tab) 50 mg PO BID ASUNCION Stop: 02/06/24 20:59 Last Admin: 01/07/24 20:28 Dose: 50 mg Vitamin D (Cholecalciferol 125 Mcg (5,000 Units) Tab) 250 mcg PO [facility] Stop: 02/07/24 08:59
[2024-01-08 08:30] LABS: Basophils # (auto) 0.01 K/uL (0.00-0.20); Basophils % (auto) 0.1 %; Hematocrit (blood only) 33.7 % (37.0-47.0); Hemoglobin 11.4 g/dl (12.0-16.0); Immature Granulocytes # (auto) 0.04 K/uL (0.01-0.20); Immature Granulocytes % (auto) 0.3 %; Lymphocytes # (auto) 1.75 K/uL (1.20-3.40); Lymphocytes % (auto) 14.1 %; Mean Corpuscular Hemoglobin 33.2 pg (25.0-34.0); Mean Corpuscular Hgb Conc 33.8 g/dL (32.0-36.0); Mean Corpuscular Volume 98.3 fL (80.0-100.0); Mean Platelet Volume 11.8 fL (9.4-12.4); Monocytes # (auto) 0.76 K/uL (0.11-0.59); Monocytes % (auto) 6.1 %; Neutrophils # (auto) 9.88 K/uL (1.40-6.50); Neutrophils % (auto) 79.4 %; Platelet Count 225 K/uL (130-400); RDW Coefficient of Variation 10.9 % (11.5-14.5); RDW Standard Deviation 39.1 fL (36.4-46.3); Red Blood Count 3.43 M/uL (4.20-5.40); White Blood Count 12.44 K/ul (4.8-10.8)
[2024-01-08 08:39] LABS: BUN Creatinine Ratio 12.1 (10-20); Calcium 9.9 mg/dl (8.6-10.3); Creatinine Clr Calc Pharmacy 72.2 ml/min; Est GFR (African American) 86.5 ml/min; Est GFR (Non-African American) 74.6 ml/min; Potassium 3.3 mmol/L (3.5-5.1)
[2024-01-08] MEDS ORDERED: LISINOPRIL/HCTZ 20/12.5MG 1 TAB TAB PO SCH (09:00)
[2024-01-08] MEDS: PARoxetine HCL 10 MG TAB PO SCH (09:39)
[2024-01-08] MEDS: PANTOprazole 40 MG TAB PO SCH (09:39)
[2024-01-08] MEDS: dexAMETHasone 6 MG in SYRINGE 0 ML IV SCH (09:39)
[2024-01-08] MEDS: CHOLECALCIFEROL 125 MCG (5,000 UNITS) TAB PO SCH (09:39)
[2024-01-08] MEDS: POTASSIUM CHLORIDE CRTAB 20 MEQ TABCR PO STA (12:15)
[2024-01-08] MEDS: HYDROmorphone INJ 0.5 MG/0.5 ML SYR IV PRN (12:15)
[2024-01-09 06:58] LABS: Hematocrit (blood only) 28.3 % (37.0-47.0); Hemoglobin 9.4 g/dl (12.0-16.0); Mean Corpuscular Hemoglobin 33.1 pg (25.0-34.0); Mean Corpuscular Hgb Conc 33.2 g/dL (32.0-36.0); Mean Corpuscular Volume 99.6 fL (80.0-100.0); Mean Platelet Volume 11.4 fL (9.4-12.4); Platelet Count 174 K/uL (130-400); RDW Coefficient of Variation 11.2 % (11.5-14.5); RDW Standard Deviation 40.5 fL (36.4-46.3); Red Blood Count 2.84 M/uL (4.20-5.40); White Blood Count 9.98 K/ul (4.8-10.8)
[2024-01-09 07:16] LABS: BUN Creatinine Ratio 14.5 (10-20); Calcium 9.8 mg/dl (8.6-10.3); Creatinine Clr Calc Pharmacy 86.4 ml/min; Est GFR (African American) 107.5 ml/min; Est GFR (Non-African American) 92.8 ml/min; Magnesium 1.6 mg/dl (1.7-2.4); Phosphorus 2.1 mg/dl (2.5-4.9); Potassium 3.6 mmol/L (3.5-5.1)
--- NOTE | 2024-01-09 08:02 | Discharge Summary ---
Date of Service January 09, 2024 Admission HPI Per Admitting Provider This is a 40-year-old female presents with chronic persistent back and leg pain after failing course of nonoperative care is here for surgical invention. Admission Exam (Per Admitting) Constitutional WD/WN, vitals as above Eyes normal visual maurer by confrontation ENMT external ear and nose normal, oropharynx normal Neck normal visual inspection Respiratory normal respiratory effort Cardiovascular Extremities: normal capillary refill Gastrointestinal (Abdomen) Inspection/Auscultation: abdomen normal to inspection Musculoskeletal Spine: + pain with thoraco-lumbar ROM Extremities: extremities normal to inspection and strength 5/5 throughout Skin no rashes, warm and dry Neurologic normal touch/pain/proprioception and moves all extremities Psychiatric A+Ox3, euthymic affect Eye Contact: good eye contact Discharge Data Consultations 01/07/24 16:17 Consult Hospitalist Routine Procedures Performed Operation Date: 01/07/24 10:55 Actual Procedures p L4-L5 Decompression and Fusion, L5-S1 Hardware Removal, Spinal Cord Monitoring(Not Applicable) - Delfin Castillo, DO Hospital Course (1) Neurogenic claudication due to lumbar spinal stenosis: [place] is being discharged home on postoperative day 2 status post hardware removal L5-S1, decompression of L4-5 and instrumented fusion L4-S1. She feels great. Radicular leg pain has resolved. She is walking several 100 feet in physical therapy plus the hallways independently. JAYLENE drain output last shift was 25 cc. She had a bowel movement. H&H this morning are 9.4 and 28.3. She is asymptomatic. Discharge Instructions ACTIVITY RECOMMENDATIONS: SELF CARE INSTRUCTIONS AFTER THORACIC/LUMBAR FUSIONS 1. You may walk to your tolerance. It is good exercise for your legs and back. Expect some back and intermittent leg aches and pains. 2. You may perform "counter-top" level activities (make a sandwich, airam with a project, etc.). 3. No bending or lifting of more than 10 pounds or back twisting of any nature (roll like a log when turning in bed). 4. You may ride in a car for 20-30 minutes at a time. No driving until after your first visit with your doctor. 5. Frequent changes of position and restricting sitting to 30 minutes at a time will help limit the amount of back spasms and stiffness you may experience. 6. You may discontinue the use of ambulatory aids (cane, crutches, etc.) once your strength and confidence allow. 7. You may inspector final assembly conveyor line the shower and let water strike your incision when you arrive home at least once daily. Do not take a tub bath, sit in a hot tub or go into a swimming pool until after your first recheck in the office. SPECIAL CARE INSTRUCTIONS: VERY IMPORTANT TO READ AND REVIEW A. Your surgical incision has been closed with a cosmetic suture under the skin that will dissolve in about 6 weeks. In 14 days, you can use a pair of clean scissors and cut the suture that is left outside of the skin at the ends of your incision. 1. The small skin tapes can be removed 7 days after surgery if they have not fallen off by that point. 2. You may keep the wound open to air as much as possible to promote healing after post-op day number 5 unless told otherwise by your doctor. 3. If you think the wound looks like it is becoming infected (redness or worsening drainage) and/or you are experiencing fever, chill or worsening back pain and muscle spasms, contact the office so that we may evaluate you as soon as possible. B. Complications are uncommon, but please contact us if you have any signs or symptoms of: 1. wound infection (fever higher than 102.5 degrees F, redness, separation of wound, drainage, or increasing pain from the incision) 2. blood clots in legs (pain, swelling, redness and warmth in legs) 3. urinary tract infection (fever higher than 102.5 degrees F, burning upon urination or increased frequency of urination) 4. nerve problems (inability to walk on your toes or heels, numbness, loss of bowel or bladder control) 5. any other symptoms that concern you C. Please call the office at if you have any concerns or questions about your operation or recovery. D. No smoking! Smoking drastically decreases the chance of a solid fusion. E. Do not take any anti-inflammatory medications (Indocin, Advil, Motrin, Aspirin, Naprosyn, etc.) as these may inhibit the chance of a solid fusion. Tylenol is okay to take for pain. MANAGING PAIN AFTER SPINAL SURGERY 1. Narcotic medication is intended for short-term use and will be provided for surgical pain. Surgical pain usually lasts for a period of 4-6 weeks. Narcotic medication includes Percocet, Vicodin, Darvocet, Tylenol #3 or Lortab. 2. Longer-term pain is more appropriately treated with non-narcotic medication such as Tylenol ES. 3. Muscle spasm is not appropriately treated with narcotics. Muscle relaxers such as Soma, Flexeril or Skelaxin can be used along with Tylenol ES. 4. Remember that we all live with some "aches and pains". This is not unusual or uncommon after an injury or as we get older. a. Back pain is expected and may include muscle spasms for 4 to 6 weeks after surgery. The pain should gradually improve. If the pain worsens for no apparent reason, please contact the office. b. Intermittent leg pain may also be experienced and should not be concerned about unless it worsens for no apparent reason. If so, please contact the office. 5. We will provide appropriate medication within the normal guidelines of their prescribed use. We will also be very cautious and aware of potential abuse and extended duration of patients' medication needs. a. Pain medications are for your comfort and to assist with sleep and rest so that the tissue can heal. They are not provided in order to return to normal activity and should not be used through the day. To do so or worsening pain at night can result from ongoing tissue damage and development of tolerance to the prescribed medicine. 6. Please allow 2-3 days to process refills. Prescriptions will not be mailed but must be picked up at the office. FOLLOW UP VISIT: Keep your scheduled follow-up appointment. Any questions, please call the office at .
--- NOTE | 2024-01-09 08:25 | Hospitalist Progress Note ---
Date of Service January 09, 2024 Assessment & Plan (1) S/P spinal surgery: (2) Neurogenic claudication due to lumbar spinal stenosis: Plan: This is a 48 yo F with PMH of hypertension, vitamin D deficiency, migraine headache who is POD#0 s/p removal of posterior instrumentation L5-S1, lumbar decompression with bilateral medial facetectomies and foraminotomies L3-L4 L4-5 and posterior spinal fusion L4-[address] Castillo. S/p removal of posterior instrumentation L5-S1, lumbar decompression with bilateral medial facetectomies and foraminotomies L3-L4 L4-5 and posterior spinal fusion L4-[address] Castillo on 01/07/24 Per orthopedics for pain control, wound care, anticoagulation and activities Monitor H&H, continue incentive spirometry, PT/OT when appropriate Acute blood loss anemia, post-op vs dilutional pre-op hgb 14.5 -> next day down to 11.4 -> now 9.4 - will start iron supplement now - no need for blood transfusion at this time, cont. to monitor H&H (3) Hypertension: Plan: -hold lisinopril-hctz for now - monitor BP (4) Anxiety: Plan: Stable. Continue paroextine, Buspar PRN (5) Migraine: Plan: Continue topiramate BID, PRN eletriptan DVT Ppx: SCDs Code status: FULL PCP: Dr. Rojas Dispo: med/surg. Discharge per primary service. Thank you for this consultation. We will follow the patient with you during their hospital stay. You can reach a member of the [facility] Team 08/02 via [employer]. Admission and Anticipated Discharge Date Admission Date: January 07, 2024 Subjective Pt seen in med consult s/p L-spine surgery Currently sitting up in bed in NAD Reports feeling well voiding without difficulty, had a BM, she is ambulating No fever, chills, chest pain, shortness of breath. No abd. pain. Hgb down to 9.4, Mag level down - discussed w/ the pt - started iron and mag supplement Review of Systems 2 Review of Systems: All systems reviewed & are unremarkable except as noted in Subjective Physical Exam Physical Exam: GENERAL: Alert and oriented x3. NAD, on RA. HEENT: NC/AT. PERRL. NECK: No JVD, no neck masses. HEART: S1 and S2 heard. Regular rate and rhythm. No murmur RESPIRATORY: Normal AP diameter. No accessory muscle use. No wheezing, no crackles. ABDOMEN: Soft, bowel sounds present, nontender, no distention. NEURO: Awake, alert, oriented. No facial droop. Answers appropriately. Obeys simple commands. Moves extremities. EXTREMITIES: No edema, no erythema seen. lower back w/ dressing c/d/i. JAYLENE drain w/ mod serosanguinous collection noted. Results & Data Results & Data Vital Signs (Past 12 Hours) Vital Signs Temp Pulse Resp BP Pulse Ox O2 Del Method 01/09/24 07:38 36.5 C 72 17 112/79 100 Room Air Laboratory Results 01/09/24 01/08/24 Range/Units 06:29 07:23 WBC 9.98 12.44 H (4.8-10.8) K/ul RBC 2.84 L 3.43 L (4.20-5.40) M/uL Hgb 9.4 L 11.4 L (12.0-16.0) g/dl Hct 28.3 L 33.7 L (37.0-47.0) % MCV 99.6 98.3 (80.0-100.0) fL MCH 33.1 33.2 (25.0-34.0) pg MCHC 33.2 33.8 (32.0-36.0) g/dL RDW Std Deviation 40.5 39.1 (36.4-46.3) fL RDW Coeff of Radu 11.2 L 10.9 L (11.5-14.5) % Plt Count 174 225 (130-400) K/uL MPV 11.4 11.8 (9.4-12.4) fL Immature Gran % (Auto) 0.3 % Neut % (Auto) 79.4 % Lymph % (Auto) 14.1 % Person % (Auto) 6.1 % Eos % (Auto) 0.0 % Baso % (Auto) 0.1 % Neut # (Auto) 9.88 H (1.40-6.50) K/uL Lymph # (Auto) 1.75 (1.20-3.40) K/uL Person # (Auto) 0.76 H (0.11-0.59) K/uL Eos # (Auto) 0.00 (0.00-0.50) K/uL Baso # (Auto) 0.01 (0.00-0.20) K/uL Immature Gran # (Auto) 0.04 (0.01-0.20) K/uL Sodium 137 134 L (136-145) mmol/L Potassium 3.6 3.3 L (3.5-5.1) mmol/L Chloride 106 100 (98-107) mmol/L Carbon Dioxide 28 29 (21-32) mmol/L Anion Gap 3 5 (3-11) BUN 11 11 (6-23) mg/dl Creatinine 0.76 0.91 (0.6-1.2) mg/dl Est Cr Clr Drug Dosing 86.4 72.2 ml/min Est GFR ( Amer) 107.5 86.5 ml/min Est GFR (Non-Af Amer) 92.8 74.6 ml/min BUN/Creatinine Ratio 14.5 12.1 (10-20) Glucose 107 H 127 H (70-99(Fasting)) mg/dl Calcium 9.8 9.9 (8.6-10.3) mg/dl Phosphorus 2.1 L (2.5-4.9) mg/dl Magnesium 1.6 L (1.7-2.4) mg/dl Medications Administered Current Inpatient Medications Acetaminophen (Acetaminophen 500 Mg Tab) 1,000 mg PO Q8H PRN PRN Reason: MILD Pain Scale 1,2,3 & Pre PT Stop: 02/06/24 16:16 Al Hydrox/Mg Hydrox/Simethicone (Aluminum/Magnesium Susp 30 Ml Udc) 30 ml PO Q6H PRN PRN Reason: Dyspepsia Stop: 02/06/24 16:16 Bisacodyl (Bisacodyl 10 Mg Supp) 10 mg [place] DAILY PRN PRN Reason: Constipation Stop: 02/06/24 16:16 Diphenhydramine HCl (Diphenhydramine Capsule 25 Mg Cap) 25 mg PO Q6H PRN PRN Reason: Allergic Rhinitis/Insomnia Stop: 02/06/24 16:16 Famotidine (Famotidine 20 Mg Tab) 20 mg PO Q12H PRN PRN Reason: Dyspepsia Stop: 02/06/24 16:16 Lisinopril/HCTZ (Lisinopril/Hctz 20/12.5mg 1 Tab Tab) 1 tab PO QAM ASUNCION Stop: 02/07/24 08:59 Hydromorphone HCl (Hydromorphone Inj 0.5 Mg/0.5 Ml Syr) 0.5 mg IV Q3H PRN PRN Reason: MODERATE Pain (Scale 4,5,6) & Pre PT Stop: 01/21/24 16:16 Last Admin: 01/08/24 12:15 Dose: 0.5 mg Hydromorphone HCl (Hydromorphone Inj 1 Mg/Ml Syringe) 1 mg IV Q3H PRN PRN Reason: SEVERE Pain (Scale 7,8,9,10) Stop: 01/21/24 16:16 Last Admin: 01/09/24 05:03 Dose: 1 mg Hydroxyzine HCl (Hydroxyzine Hcl 25 Mg Tab) 25 mg PO Q8H PRN PRN Reason: Anxiety Stop: 02/06/24 16:16 Promethazine HCl 12.5 mg/ (Sodium Chloride) 50.5 mls @ 202 mls/hr IV Q6H PRN PRN Reason: Nausea &/or Vomiting Stop: 02/06/24 16:16 Lorazepam 0.5 mg/ Syringe 0.5 mls @ 2 mls/min IV Q8H PRN; Protocol PRN Reason: Sedation/Anxiety Stop: 02/06/24 16:16 Dexamethasone 6 mg/ Syringe 1.5 mls @ 1 mls/min IV DAILY ASUNCION Stop: 01/10/24 09:02 Last Admin: 01/08/24 09:39 Dose: 1 mls/min Influenza Virus Vaccine Quadrival (Do Not Administer Flu Vaccine) 1 each N/A PRN PRN PRN Reason: Notification Stop: 02/06/24 16:16 Lorazepam (Lorazepam 0.5 Mg Tab) 0.5 mg PO Q8H PRN PRN Reason: Sedation/Anxiety Stop: 02/06/24 16:16 Magnesium Hydroxide (Magnesium Hydroxide Susp 30 Ml Udc) 30 ml PO Q24H PRN PRN Reason: Constipation Stop: 02/06/24 16:16 Magnesium Oxide (Magnesium Oxide 400 Mg Tab) 400 mg PO BID ASUNCION Stop: 02/08/24 08:59 Metoclopramide HCl (Metoclopramide Hcl Inj 5 Mg/Ml 2 Ml Vial) 10 mg IV Q6H PRN PRN Reason: Nausea &/or Vomiting Stop: 02/06/24 16:16 Miscellaneous (Eletriptan 40 Mg Tablet- Order Awaiting Action) 1 each N/A QS ASUNCION Stop: 02/07/24 00:00 Last Admin: 01/09/24 07:38 Dose: Not Given Naloxone HCl (Naloxone Hcl 0.4 Mg/1 Ml Vial/Carp) 0.1 mg IV Q5M PRN PRN Reason: Oversedation/Resp depression Stop: 02/06/24 16:16 Ondansetron HCl (Ondansetron Inj 2 Mg/Ml 2 Ml Vial) 4 mg IV Q6H PRN PRN Reason: Nausea &/or Vomiting Stop: 02/06/24 16:16 Ondansetron HCl (Ondansetron 4 Mg Od Tab) 4 mg PO Q6H PRN PRN Reason: Nausea Stop: 02/06/24 16:16 Oxycodone HCl (Oxycodone Hcl Ir 5 Mg Tab (Immediate Release)) 5 - 10 mg PO Q4H PRN PRN Reason: Pain & Pre PT Stop: 01/21/24 16:16 Last Admin: 01/09/24 06:55 Dose: 10 mg Pantoprazole Sodium (Pantoprazole 40 Mg Tab) 40 mg PO QAM ASUNCION Stop: 02/07/24 08:59 Last Admin: 01/08/24 09:39 Dose: 40 mg Paroxetine HCl (Paroxetine Hcl 10 Mg Tab) 10 mg PO DAILY ASUNCION Stop: 02/07/24 08:59 Last Admin: 01/08/24 09:39 Dose: 10 mg Pneumococcal Polyvalent Vaccine (Do Not Administer Pneumococcal Vaccine) 1 each N/A PRN PRN PRN Reason: Notification Stop: 02/06/24 16:16 Polyethylene Glycol (Polyethylene (Miralax) 17 Gm Pack) 17 gm PO Q6 ASUNCION Stop: 02/07/24 05:59 Last Admin: 01/09/24 05:05 Dose: 17 gm Senna/Docusate Sodium (Docusate Sodium/Senna 50/8.6mg Tab) 2 tab PO HS ASUNCION Stop: 02/06/24 20:59 Last Admin: 01/08/24 20:57 Dose: 2 tab Sodium Biphosphate/Sodium Phosphate (Sod Phosphate/Sod Biphosphate Enema 132 Ml Btl) 132 ml [place] ONE PRN PRN Reason: Constipation Stop: 02/06/24 16:16 Topiramate (Topiramate 50 Mg Tab) 50 mg PO BID [facility] Stop: 02/06/24 20:59 Last Admin: 01/08/24 20:57 Dose: 50 mg Vitamin D (Cholecalciferol 125 Mcg (5,000 Units) Tab) 250 mcg PO QAM [facility] Stop: 02/07/24 08:59 Last Admin: 01/08/24 09:39 Dose: 250 mcg
[2024-01-09] MEDS: MAGNESIUM OXIDE 400 MG TAB PO SCH (10:49)
[2024-01-09] MEDS ORDERED: FERROUS SULFATE 325 MG TAB PO SCH (17:00)
== END 2024-01-09 10:55 | disposition home or self-care (01) | DRG 454 ==
LOC: ASU 09:09 → MERGE 09:09 → 3N 13:20